=== PATIENT | female | born 1955 | race African-American/Black ===

== ENCOUNTER 2024-06-27 07:08 | Outpatient (CLI) | payer MEDICARE, SELFPAY ==
--- OUTSIDE RECORDS SUMMARY | 2024-06-27 07:17 | XMS_ITS | Clinical Summary ---
Author Organization [facility] on Address [address] [address] Care Team Providers Care Guide Cruise Name Role Phone Oh Esquivel MD Primary Care Provider Allergies Active Allergy Reactions Criticality Noted Date Comments Aspirin Rash Medium 07/03/2016 Nsaids (Non-Steroidal Anti-Inflammatory Drug) Other (See Comments) 02/14/2008 Pt had gastric bypass surgery, should not take oral NSAIDS. Tetracycline Swelling Low 12/18/2005 Medications metFORMIN (GLUCOPHAGE) 1,000 mg tablet Take 500 mg by mouth 2 times daily with meals. 12/02/2018 Active atorvastatin (LIPITOR) 40 mg tablet Take 80 mg by mouth daily. 12/02/2018 Active LEVEMIR FLEXTOUCH U-100 INSULN 100 unit/mL (3 mL) pen syringe 12/15/2018 Active ONETOUCH ULTRA BLUE TEST STRIP Strip 12/15/2018 Active Active Problems No known active problems Encounters Date Type Department Care Team Description 06/08/2024 External Device Data [facility]STRACTION Provider, Abstract 2024 External Device Data [facility]CTION Provider, Abstract 05/27/2024 External Device Data [facility] Provider, Abstract 05/24/2024 External Device Data [facility] Provider, Abstract 05/10/2024 External Device Data [facility] Provider, Abstract 04/13/2024 External Device Data [facility] Provider, Abstract 04/12/2024 External Device Data [facility] Provider, Abstract 04/06/2024 External Device Data [facility] ABSTRACTION Provider, Abstract from Last 3 Months Family History Medical History Relation Name Comments No Known Problems Brother 1 Diabetes Brother 2 No Known Problems Child 1 No Known Problems Child 2 No Known Problems Child 3 No Known Problems Child 4 No Known Problems Child 5 No Known Problems Father Diabetes Mother Heart Disease Mother No Known Problems Sister Relation Name Status Comments Brother 1 Alive Brother 2 Alive Child 1 Alive Child 2 Alive Child 3 Alive Child 4 Alive Child 5 Alive Father Mother Sister Alive Social History Tobacco Use Types Packs/Day Years Used Date Smoking Tobacco: Never Smokeless Tobacco: Never Alcohol Use Standard Drinks/Week Comments Yes 0 (1 standard drink = 0.6 oz pur e alcohol) Socially Comments No Sex and Gender Information Value Date Recorded Sex Assigned at Not on file Legal Sex Female 1:44 PM CDT Gender Identity Not on file Sexual Orientation Not on file Last Filed Vital Signs Vital Sign Reading Time Taken Comments Blood Pressure 125/78 11/11/2023 10:12 AM CDT Pulse 61 11/11/2023 10:12 AM CDT Temperature 36.6 C (97.9 F) 11/11/2023 10:12 AM CDT Respiratory Rate 16 11/11/2023 10:12 AM CDT Oxygen Saturation 98% 11/11/2023 10:12 AM CDT Inhaled Oxygen Concentration - - Weight 52.6 kg (116 lb) 11/11/2023 10:14 AM CDT Height 162.6 cm (5' 4 ) 11/11/2023 10:12 AM CDT Body Mass Index 19.91 11/11/2023 10:12 AM CDT Plan of Treatment Health Maintenance Due Date Last Done Comments DIABETES MICROALBUMIN ANNUAL SCREEN 05/29/1971 LDL CHOLESTEROL ANNUAL 05/29/1971 DTAP/TDAP/TD VACCINES (1 - Tdap) 1972 COLORECTAL SCREENING 1998 Colorectal Cancer Screening 1998 FIT-DNA Q 3 years 1998 FIT/FOBT Q 1 year 1998 Flex Sig/CT Colonography Q 5 years 1998 ZOSTER VACCINE (1 of 2) 05/29/2003 RSV VACCINE (60+ or ) (1 - Risk 60-74 years 1-dose series) 2013 DIABETES ANNUAL RETINAL EXAM 12/02/2014 12/02/2013 DIABETES ANNUAL FOOT EXAM 01/22/2020 01/21/2019 DIABETES HBA1C Q 6 MONTHS 03/03/20212020, 11/19/2018, 09/04/2014 BREAST CANCER SCREENING 05/24/2021 05/25/19 21, 05/24/2020, 01/04/2020, Additional history exists INFLUENZA VACCINE (#1) 2023 5, 12/24/2011, 02/19/2011, Additional history exists COVID-19 Vaccine (3 - 2023-2 5 season) 2023 05/18/2020, 04/24/2020 PNEUMOCOCCAL VACCINE 50+ YEA RS (3 of 3 - PCV20 or PCV21) 11/20/2026 11/20/2021, 06/21/2013, 12/24/2011 OSTEOPOROSIS SCREENING Completed , 05/10/2019, 05/10/2019, Additional history exists Insurance MEDICAID [facility] [id number] Care Teams Guide Cruise Relationship Specialty Start Date End Date Oh Esquivel MD PCP - General Internal Medicine 11/11/23
--- OUTSIDE RECORDS SUMMARY | 2024-06-27 07:17 | XMS_ITS | Clinical Summary ---
Author Organization [facility] Address [address] [place] [address] Care Team Providers Care Svp Name Role Phone Shadia Lemus MD Unavailable [phone] Jessica Tang DO Primary Care Provi cathleen Source Comments [facility],non-owned Affiliates and Associated Physician Practices is amultiple site organization consisting of ambulatory clinics and hospital sitesin [place], [place], [place] and [place]. This disclosure is being madepursuant to the Care Everywhere program and may not contain all information available regarding this patient. Last updated 17.[facility] Allergies Active Allergy Reactions Criticality Noted Date Comments Aspirin Rash Medium 07/03/2016 Nsaids Other 02/14/2008 Pt had gastric bypass surgery, should not take oral NSAIDS. Tetracycline Swelling 12/18/2005 face swells, tongue swells Medications * Be aware that medications may not be up to date on this document. Alwaysverify current medications with the patient. Medication Sig Dispensed Refills Start Date End Date Status pantoprazole EC (PROTONIX) 20 MG tablet Take 20 mg by mouth once daily Active Cyanocobalamin (VITAMIN B-12) 50 MCG Take by mouth once daily Active Ascorbic Acid (VITAMIN C) 500 MG Take by mouth once daily Active DULoxetine (CYMBALTA) 60 MG capsule Take 1 (one) capsule by mouth once daily 30 capsule 09/01/2020 Active LEVEMIR FLEXTOUCH pen Inject 6 (six) Units subcutaneously once daily 1 Pen 09/01/2020 Active liraglutide (VICTOZA) 18 MG/3ML penIndications:Ty pe 2 Diabetes Mellitus Inject 1.2 mg subcutaneously once daily Reasons: Type 2 Diabetes 2 Pen 09/01/2020 Active metFORMIN (GLUCOPHAGE) 1000 MG tablet Take 1 (one) tablet by mouth 2 times daily with morning and evening meal 60 tablet 09/01/2020 Active atorvastatin (LIPITOR) 40 MG tablet Take 1 (one) tablet by mouth at bedtime 30 tablet 09/01/2020 Active lisinopril (PRINIVIL; ZESTRIL) 10 MG tabletIndications :Hypertension Take 1 (one) tablet by mouth once daily Reasons: High Blood Pressure Disorder 30 tablet 09/01/2020 Active REXULTI 1 MG tablet Take 1 (one) tablet by mouth once daily 30 tablet 09/01/2020 Active phenazopyridine (PYRIDIUM) 200 MG tablet Take 1 (one) tablet by mouth 3 times daily as needed 25 tablet 09/26/2020 Active traMADol (ULTRAM) 50 MG tablet Take 1 (one) tablet by mouth every 6 hours as needed for Pain 12 tablet 04/10/2021 Active Active Problems Problem Noted Date Diagnosed Date Hyperglycemia 08/31/2020 Abdominal pain 07/06/2020 Hypotension 11/23/2018 Uncontrolled type 2 diabetes mellitus with hyper glycemia 11/18/2018 Other pulmonary embolism without acute cor pulmo nale 01/04/2018 Syncope 03/19/2017 Head injury 03/19/2017 Medically noncompliant Uncontrolled diabetes mellitus Resolved Problems Problem Noted Date Diagnosed Date Resolved Date Dehydration 11/23/2018 12/07/2018 Dizziness 11/18/2018 11/19/2018 Immunizations Name Administration Dates Next Due Mansi Rosales primary monoval ent 12+ yr 0.3mL Purple cap 05/18/2020,04/24/2020 Family History Medical History Relation Name Comments Suicide Father NM Mother Cancer - Breast Neg Hx Relation Name Status Comments Father Mother Social History Tobacco Use Types Packs/Day Years Used Date Smoking Tobacco: Never Smokeless Tobacco: Never Tobacco Cessation:Counseling Given: Yes Alcohol Use Standard Drinks/Week Comments No 0 (1 standard drink = 0.6 oz pur e alcohol) AUDIT-C Answer Date Recorded Q1: How often do you have a drink containing alc ohol? Never 04/10/2021 Average Number of Drinks Not on file 022 Frequency of Binge Drinking Not on file 03/23 Sex and Gender Information Value Date Recorded Sex Assigned at Not on file Gender Identity Not on file Sexual Orientation Not on file Last Filed Vital Signs Vital Sign Reading Time Taken Comments Blood Pressure 142/94 04/10/2021 8:10 AM PHARMACEUTICAL SALES REPRESENTATIVE Pulse 107 04/10/2021 8:10 AM PHARMACEUTICAL SALES REPRESENTATIVE Temperature 36.8 C (98.3 F) 04/10/2021 8:10 AM PHARMACEUTICAL SALES REPRESENTATIVE Respiratory Rate 16 04/10/2021 8:10 AM PHARMACEUTICAL SALES REPRESENTATIVE Oxygen Saturation 100% 04/10/2021 8:10 AM PHARMACEUTICAL SALES REPRESENTATIVE Inhaled Oxygen Concentration - - Weight 72.6 kg (160 lb) 04/10/2021 8:10 AM PHARMACEUTICAL SALES REPRESENTATIVE Height 162.6 cm (5' 4 ) 04/10/2021 8:10 AM PHARMACEUTICAL SALES REPRESENTATIVE Body Mass Index 27.46 04/10/2021 8:10 AM PHARMACEUTICAL SALES REPRESENTATIVE Plan of Treatment Health Maintenance Due Date Last Done Comments COLOGUARD (AGES 45-75) - COLON CA SCREENING 1953 COLON MONITORING 1953 COLONOSCOPY - COLON CA SCREENING 1953 CT COLONOGRAPHY - COLON CA SCREENING 1953 Colorectal Cancer Screening 1953 FIT - COLON CA SCREENING 1953 FLEX SIG - COLON CA SCREENING 1953 HEPATITIS C SCREENING 05/24/1971 DTAP/TDAP/TD VACCINES (1 - Tdap) 1972 PNEUMOCOCCAL VACCINE 50+ (1 of 1 - PCV) 05/29/2003 ZOSTER VACCINE (1 of 2) 05/29/2003 Respiratory Syncytial Virus (RSV) Vaccine Pt: or over 60 yrs (1 - Risk 60-74 years 1-dose series) 2013 DIABETES RETINOPATHY SCREENING 11/18/2018 DIABETES-FOOT EXAM WITH MONOFILAMENT 01/22/2020 01/21/2019 DIABETES-HGB A1C 12/02/2020 09/01/2020, , 02/07/2020, Additional history exists DIABETES-SERUM CREATININE 09/26/20212020, 09/01/2020, 08/31/2020, Additional history exists MAMMOGRAM 05/24/2022 05/24/2020, 04/23, 08/13/2017 COVID-19 VACCINE ( season) 2023 04/04/2021, 05/18/2020, 04/24/2020 DEPRESSION SCREENING 03/23/2024 DIABETES - URINE PROTEIN SCREENING 03/23/2024 MEDICARE AWV CALENDAR YEAR 2024 INFLUENZA VACCINE (Season Ended) 2024 12/16/2017, 01/22/2017, 12/15/2014, Additional history exists BONE DENSITY TESTING Completed 05/10/2019 HEPATITIS B VACCINE Aged Out No longe r eligible based on patient's age to complete this topic HIB VACCINE Aged Out No longer eligi ble based on patient's age to complete this topic HPV VACCINE Aged Out No longer eligi ble based on patient's age to complete this topic MENINGOCOCCAL (Group B) VACCINE SHARED DECISION-MAKING Aged Out No longer eligible based on patient's age to complete this topic MENINGOCOCCAL GROUPS A/C/Y/W VACCINE Aged Out No longer eligible based on patient's age to complete this topic Procedures Procedure Name Priority Date/Time Associated Diagnosis Comments COMPREHENSIVE METABOLIC PANEL STAT 09/26/2020 7:16 PM CDT HEMOGLOBIN A1C Routine 09/01/2020 5:21 AM CDT Hyperglycemia MAMMO BILAT DIAGNOSTIC Routine 05/24/2020 8:30 AM PHARMACEUTICAL SALES REPRESENTATIVE Abnormal mammogram DEXA BONE DENSITY AXIAL SKELETON Routine 05/10/2019 8:13 AM PHARMACEUTICAL SALES REPRESENTATIVE Screening for osteoporosis from Last 3 Months or Most Recently Relevant to Health Maintenance Results * (ABNORMAL) COMPREHENSIVE METABOLIC PANEL (09/26/2020 7:16 PM CDT) Glucose 232(H) 70 - 105 mg/dL 09/26/2020 7:52 PM CDT [facility] Sodium 138 136 - 145 mmol/L 09/26/2020 7:52 PM CDT [facility] Potassium 4.4 3.5 - 5.1 mmol/L 09/26/2020 7:52 PM CDT [facility] Chloride 104 98 - 107 mmol/L 09/26/2020 7:52 PM CDT [facility] CO2 24 23 - 31 mmol/L 09/26/2020 7:52 PM CDT [facility] Calcium 9.5 8.4 - 10.4 mg/dL 09/26/2020 7:52 PM CDT [facility] Anion Gap 10 8 - 18 mmol/L 09/26/2020 7:52 PM CDT [facility] BUN 14 9.8 - 20.1 mg/dL 09/26/2020 7:52 PM CDT [facility] Creatinine 1.28(H) 0.57 - 1.11 mg/dL 09/26/2020 7:52 PM CDT [facility] Alkaline Phosphatase 79 40 - 150 U/L 09/26/2020 7:52 PM CDT [facility] ALT 17 0 - 61 U/L 09/26/2020 7:52 PM CDT [facility] AST 16 5 - 34 U/L 09/26/2020 7:52 PM CDT [facility] Protein Total 7.3 6.4 - 8.3 gm/dL 09/26/2020 7:52 PM CDT [facility] Albumin 3.8 3.2 - 4.6 gm/dL 09/26/2020 7:52 PM CDT [facility] Bilirubin Total 0.2 0.2 - 1.2 mg/dL 09/26/2020 7:52 PM CDT [facility] eGFR by MDRD 42(L) >60 mL/min/1.7 3m2 09/26/2020 7:52 PM CDT [facility] eGFR by MDRD 50(L) >60 mL/min/1.7 3m2 09/26/2020 7:52 PM CDT [facility] Blood BLOOD SPECIMEN / Unknown Venipuncture / Unknown 09/26/2020 7:16 PM CDT 09/26/2020 7:25 PM CDT Narrative Authorizing Provider Result Stephane Pena ENVIRONMENTAL SCIENTIST-GLUE JOINTER FEEDER LAB - CHEMISTR Y ORDERABLES [facility] [address] [place] [address] * (ABNORMAL) HEMOGLOBIN A1C (09/01/2020 5:21 AM CDT) Hemoglobin A1c >14.0(H) 4.2 - 5.6 % 09/01/2020 5:37 AM CDT [facility] Estimated Average Glucose 09/01/2020 5:37 AM CDT [facility] Comment:Not Calculated Blood BLOOD SPECIMEN / Unknown Lab Venipuncture / Unknown 09/01/2020 5:21 AM CDT 09/01/2020 5:25 AM CDT Narrative [facility] - 09/01/2020 5:37 AM CDT The following cutoff levels are recommended by [place] [employer]. A1c > 6.5% : considered as diabetes if two separate tests >6.5% or in an appropriate clinical setting. A1c 5.7% - 6.4% : considered as prediabetes (suggest increased risk for diabetes and cardiovascular disease) Control target level: Should be individualized. < 7 for general (non-) , < 8% less stringent goal, < 6.5 more stringent goal. Hemoglobin A1c measurements are used as an aid in the diagnosis of diabetic mellitus, as an aid to identify patients who may be at the risk for developing diabetic mellitus, and for the monitoring long-term blood glucose control in individuals with diabetes mellitus. This test should not replace glucose testing for patients with Type 1 diabetes, pediatric patients, or women. Falsely low HbA1c results may be observed in patients with clinical conditions that shorten erythrocyte life span or decrease mean erythrocyte age such as the presence of unstable hemoglobin variants, elevated hemoglobin F level or other causes of hemolytic anemia . HbA1c may not accurately reflect glycemic control when clinical conditions that affect erythrocyte survival are present. Severe Iron deficiency anemia may yield falsely high results. Hemoglobin A1c assay should not be used to diagnose or monitor diabetes in patients with malignancy, recent blood transfusion, chronic kidney or liver disease. This method may yield falsely low results when hemoglobin (HbF) exceeds 5% in the specimen. Leo Rivera PA-C LAB - CHEMISTRY MONTRELL Batista Organization Address City/State/ZIP Co de Phone Number [facility] [address] [address] * (ABNORMAL) MAMMO BILAT DIAGNOSTIC (05/24/2020 8:30 AM PHARMACEUTICAL SALES REPRESENTATIVE) Anatomical Region Laterality Modality Breast Bilateral Mammography 05/24/2020 9:49 AM PHARMACEUTICAL SALES REPRESENTATIVE Narrative 05/24/2020 9:50 AM PHARMACEUTICAL SALES REPRESENTATIVE Breast composition: Heterogeneously dense, which can obscure small masses. Body of report: comparison exam from 05-10-19, 01-04-20 These images were interpreted with the aid of CAD. 3-D tomosynthesis was utilized in the interpretation of this exam.. HISTORY: One-year follow-up for probably benign calcifications within the left breast There are no spiculated lesions or areas of architectural distortion. The right breast is unchanged. Again seen within the posterior left central breast approximately 8 cm from the nipple, is stable grouping of calcifications. Compared to the prior exam, there has been no suspicious interval change. BI-RADS assessment category: Category 3, probably benign findings. Recommendation: 1 year follow-up diagnostic mammogram to confirm 2 year stability of these calcifications which are favored to be benign. *Reading Radiologist: Trice Reynolds on 05/24/2020 at 9:50 AM Kimmy Loja MD MAMMO ORDERABLES * DEXA BONE DENSITY AXIAL SKELETON (05/10/2019 8:13 AM PHARMACEUTICAL SALES REPRESENTATIVE) Anatomical Region Laterality Modality Mammography 05/10/2019 8:20 AM PHARMACEUTICAL SALES REPRESENTATIVE Narrative 05/10/2019 8:27 AM PHARMACEUTICAL SALES REPRESENTATIVE Bone density study (DEXA): History: Osteoporosis screening, postmenopausal, thyroid medication. Current study: 05/10/2019. Location: [place]. LUMBAR SPINE (L1-L4): Bone mineral density (g/cm2): 0.930. Current T-score: -1.1. Current Z-score: +0.8. Findings: Osteopenia bordering on normal bone density. LEFT FEMORAL NECK: Bone mineral density (g/cm2): 0.707. Current T-score: -1.3. Current Z-score: +0.3. Findings: Osteopenia. Please see the PACS images for additional details. World Health Organization definitions of standard deviations relative to the mean T-score: Normal bone density = -1.0 and above Mild osteopenia = -1.0 to -1.5 Moderate osteopenia = -1.5 to -2.0 Severe osteopenia = -2.0 to -2.5 Osteoporosis = -2.5 and below [facility] Center: [employer] [facility]: [employer] [facility]: [employer] [facility]: [employer] A Reading Radiologist: Jerrod Campbell MD on 05/10/2019 at 8:27 AM Procedure Note Jerrod Campbell MD - 05/10/2019 Bone density study (DEXA): History: Osteoporosis screening, postmenopausal, thyroid medication. Current study: 05/10/2019. Location: [place]. LUMBAR SPINE (L1-L4): Bone mineral density (g/cm2): 0.930. Current T-score: -1.1. Current Z-score: +0.8. Findings: Osteopenia bordering on normal bone density. LEFT FEMORAL NECK: Bone mineral density (g/cm2): 0.707. Current T-score: -1.3. Current Z-score: +0.3. Findings: Osteopenia. Please see the PACS images for additional details. World Health Organization definitions of standard deviations relative to the mean T-score: Normal bone density = -1.0 and above Mild osteopenia = -1.0 to -1.5 Moderate osteopenia = -1.5 to -2.0 Severe osteopenia = -2.0 to -2.5 Osteoporosis = -2.5 and below [facility]: [employer] [facility]: [employer] [facility]: [employer] [facility]: [employer] A Reading Radiologist: Jerrod Campbell MD on 05/10/2019 at 8:27 AM Shirley Webber MD DEXA ORDERABLES from Last 3 Months or Most Recently Relevant to Health Maintenance Advance Directives * Full Code (Latest Code Status on File) Date Activated Date Inactivated Comments 08/31/2020 8:49 PM 09/01/2020 1:01 PM * Full Code Date Activated Date Inactivated Comments 11/18/2018 11:44 PM 11/19/2018 6:24 PM * Full Code Date Activated Date Inactivated Comments 03/19/2017 6:16 PM 03/20/2017 4:45 PM * Full Code Date Activated Date Inactivated Comments 07/03/2016 11:43 PM 07/04/2016 6:28 PM Care Teams Svp Relationship Specialty Start Date End Date Jessica Tang DO [address] [place] [address] PCP - General Family Medicine 10/10/18 Shadia Lemus MD [address] [place] [address] [employer] Pulmonary Disease 09/30/17
--- OUTSIDE RECORDS SUMMARY | 2024-06-27 07:17 | XMS_ITS | Data Portability ---
Author Organization [place] [facility] [employer], Main Office Address [address] [place] [address] Care Team Providers Care Edge Polisher Name Role Phone STEVELELIAJULIANA Thomas Primary Care Provider LANCE BOSS Gravel Weigher ERIN WINN Gas Leak Inspector [facility] Jet Mechanic Assessment Encounter Date Assessment Date Assessment LastModified by Organization Details LastModified Time 02/05/2023 02/05/2023 06/27/2022: VIT D 29.3 TSH 5.500H A1C 10.1 Urine micro alb 82.0 Gluc 189, ALT/AST 50/54 HGB 11.3 11/05/2022: A1C 6.8 HGB 11.2 Gluc 142 Chol 279, LDL 181 11/06/2022: Urine micro alb: Neg Not available 02/02/2023 10:51:17 05/14/2023 05/14/2023 06/27/2022: VIT D 29.3 TSH 5.500H A1C 10.1 Urine micro alb 82.0 Gluc 189, ALT/AST 50/54 HGB 11.3 11/05/2022: A1C 6.8 HGB 11.2 Gluc 142 Chol 279, LDL 181 11/06/2022: Urine micro alb: Neg Not available 05/13/2023 17:53:38 09/17/2023 09/17/2023 06/27/2022: VIT D 29.3 TSH 5.500H A1C 10.1 Urine micro alb 82.0 Gluc 189, ALT/AST 50/54 HGB 11.3 11/05/2022: A1C 6.8 HGB 11.2 Gluc 142 Chol 279, LDL 181 11/06/2022: Urine micro alb: Neg 05/15/2023: A1C 7.2 VIT D 19.6 Gluc 127 Chol 214 H/H 11.1/35.1 Not available 09/17/2023 16:45:31 01/14/2024 01/14/2024 06/27/2022: VIT D 29.3 TSH 5.500H A1C 10.1 Urine micro alb 82.0 Gluc 189, ALT/AST 50/54 HGB 11.3 11/05/2022: A1C 6.8 HGB 11.2 Gluc 142 Chol 279, LDL 181 11/06/2022: Urine micro alb: Neg 05/15/2023: A1C 7.2 VIT D 19.6 Gluc 127 Chol 214 H/H 11.1/35.1 09/18/2023: A1C 7.1 Hep panel: Neg Gluc 118, AST 44 H/H 10.4/33.3 Not available 01/13/2024 17:35:31 06/23/2024 06/23/2024 06/27/2022: VIT D 29.3 TSH 5.500H A1C 10.1 Urine micro alb 82.0 Gluc 189, ALT/AST 50/54 HGB 11.3 11/05/2022: A1C 6.8 HGB 11.2 Gluc 142 Chol 279, LDL 181 11/06/2022: Urine micro alb: Neg 05/15/2023: A1C 7.2 VIT D 19.6 Gluc 127 Chol 214 H/H 11.1/35.1 09/18/2023: A1C 7.1 Hep panel: Neg Gluc 118, AST 44 H/H 10.4/33.3 01/14/2024: A1C 7.2 Hepatitis panel: Neg Gluc 106 H/H 10.6/33.7 Not available 06/19/2024 17:54:33 Plan of Treatment Reminders Order Date Submit Date Provider Last Modified By Organization Details Last Modified Time Details Appointments Any 15 2024 08:45A Wagner hinds MD Not available Not available Not available Lab lipid panel, serum [address] (Lab), [address] [place], [address], 06/23/2024 09:40:02 CBC w/ auto diff [address] (Lab), [address] [place], [address], 06/23/2024 09:40:02 CMP, serum or plasma [address] (Lab), [address] [place], [address], 06/23/2024 09:40:02 TSH, serum or plasma [address] (Lab), [address] [place], [address], 06/23/2024 09:40:02 vitamin D, 25-hydrox y, total, serum [address] (Lab), [address] [place], [address], 06/23/2024 09:40:03 glycohemo globin, total, blood [address] (Lab), [address] [place], [address], 06/23/2024 09:40:03 microalbu min, urine [address] (Lab), [address] [place], [address], 06/23/2024 09:40:03 hepatitis panel (A+B+C), acute, serum 2023 024 GILDARDO [facility] (Lab), [address] [place], [address], 01/14/2024 13:15:03 lipid panel, serum 2023 [facility] (Lab), [address] [place], [address], 01/14/2024 13:01:00 CBC w/ auto diff 2023 [facility] (Lab), [address] [place], [address], 01/14/2024 12:27:28 T4, free, serum 2023 [facility] (Lab), [address] [place], [address], 01/14/2024 13:05:35 CMP, serum or plasma 2023 [facility] (Lab), [address] [place], [address], 01/14/2024 13:01:16 TSH, serum or plasma 2023 [facility] (Lab), [address] [place], [address], 01/14/2024 13:07:27 vitamin D, 25-hydrox y, total, serum [address] (Lab), [address] [place], [address], 01/14/2024 09:54:39 glycohemo globin, total, blood 2023 [facility] (Lab), [address] [place], [address], 01/14/2024 14:38:11 microalbu min, urine 2023 024 [facility] (Lab), [address] [place], [address], 01/14/2024 13:13:57 lipid panel, serum 2023 024 [facility] (Lab), [address] [place], [address], 09/18/2023 11:54:40 CBC w/ auto diff 2023 024 [facility] (Lab), [address] [place], [address], 09/18/2023 11:42:18 T4, free, serum 2023 024 [facility] (Lab), [address] [place], [address], 09/18/2023 12:11:54 CMP, serum or plasma 2023 024 [facility] (Lab), [address] [place], [address], 09/18/2023 11:54:44 TSH, serum or plasma 2023 024 [facility] (Lab), [address] [place], [address], 09/18/2023 12:25:04 vitamin D, 25-hydrox y, total, serum [address] (Lab), [address] [place], [address], 03/17/2024 10:24:30 glycohemo globin, total, blood 2023 024 [facility] (Lab), [address] [place], [address], 09/18/2023 12:45:07 microalbu min, urine 2023 024 [facility] (Lab), [address] [place], [address], 09/18/2023 12:02:17 hepatitis panel (A+B+C), acute, serum 2023 024 [facility] (Lab), [address] [place], [address], 09/18/2023 12:26:05 lipid panel, serum 2023 024 [facility] (Lab), [address] [place], [address], 05/15/2023 12:01:18 CBC w/ auto diff 2023 024 [facility] (Lab), [address] [place], [address], 05/15/2023 11:17:19 T4, free, serum 2023 024 [facility] (Lab), [address] [place], [address], 05/15/2023 12:33:19 CMP, serum or plasma 2023 024 [facility] (Lab), [address] [place], [address], 05/15/2023 12:01:29 TSH, serum or plasma 2023 024 [facility] (Lab), [address] [place], [address], 05/15/2023 12:33:34 vitamin D, 25-hydrox y, total, serum [email or web address] (Lab), [address] [place], [address], 11/10/2023 17:15:40 glycohemo globin, total, blood 2023 024 [facility] (Lab), [address] [place], [address], 05/15/2023 12:15:18 microalbu min, urine 2023 024 [facility] (Lab), [address] [place], [address], 05/15/2023 12:02:44 hepatitis panel (A+B+C), acute, serum [address] (Lab), [address] [place], [address], 11/10/2023 17:15:40 lipid panel, serum [address] (Lab), [address] [place], [address], 09/22/2023 16:44:41 CBC w/ auto diff [address] (Lab), [address] [place], [address], 09/22/2023 16:44:41 T4, free, serum [address] (Lab), [address] [place], [address], 09/22/2023 16:44:41 CMP, serum or plasma [address] (Lab), [address] [place], [address], 09/22/2023 16:44:41 TSH, serum or plasma [address] (Lab), [address] [place], [address], 09/22/2023 16:44:42 vitamin D, 25-hydrox y, total, serum [address] (Lab), [address] [place], [address], 09/22/2023 16:44:42 rapid strep group A, throat 2022 023 [facility] [address], [address], [place], [address], 03/05/2023 13:38:30 rapid flu (A+B) 2022 023 [facility] [address], [address], [place], [address], 03/05/2023 13:38:31 SARS CoV 2 RNA (COVID-19 ), QL, soa integration developer-PCR, respirato ry specimen 2022 023 [facility] [address], [address], [place], [address], 03/05/2023 13:38:31 glycohemo globin, total, blood [address] (Lab), [address] [place], [address], 09/22/2023 16:44:42 microalbu min, urine [address] (Lab), [address] [place], [address], 09/22/2023 16:44:42 hepatitis panel (A+B+C), acute, serum 2022 023 [email or web address] [facility] (Lab), [address] [facility] [place], [address], 02/01/2024 08:25:30 Referral gynecolog ist referral - Please call patient to schedule an appointme nt. Thank you. 2024 025 GILDARDONIESAH Gómez, [address], [address], [place], [address], Ph [phone] 06/23/2024 17:00:47 hematolog ist referral - (wait on labs) Please call patient to schedule an appointme nt. Thank you. 2024 025 [email or web address] Lance Boss MD, [address], [place], [address], 06/23/2024 16:11:19 psychiatr ist referral - Please call patient to schedule an appointme nt. Thank you. 2024 025 GILDARDO Anna Kelley Pmhnp, [address] [facility] [address], [place], [address], 06/23/2024 16:16:06 cardiolog ist referral - (wait on labs)Plea se call patient to schedule an appointme nt. Thank you. 2024 025 [email or web address] [place], [address] [facility], [address], [place], [address], 06/23/2024 16:10:24 podiatris t referral - Please call patient to schedule an appointme nt. Thank you. 2024 025 GILDARDO Moscoso DPM, [address] [facility], [address], [place], [address], 06/23/2024 16:50:49 gynecolog ist referral - Please call patient to schedule. 2023 024 [email or web address] Miriam Gómez, [address], [address], [place], [address], Ph [phone] 03/21/2024 13:26:20 psychiatr ist referral 2023 024 [email or web address] Anna Seiffert Pmhnp, [address] [place] [address] [place], [address], 01/14/2024 16:27:13 cardiolog ist referral - Please call patient to schedule. 2023 024 [email or web address] Zoya Ly, [address] [address], [address], [address], 03/21/2024 13:24:59 hematolog ist referral 2023 024 [email or web address] Lance Boss MD, [address], [place], [address], 01/14/2024 16:24:29 podiatris t referral 2023 024 GILDARDO Moscoso DPM, [address] [facility], [address], [place], [address], 01/18/2024 14:12:44 gynecolog ist referral 2023 024 [email or web address] Miriam Gómez, [address] [facility], [address], [place], [address], Ph [phone] 03/21/2024 13:26:15 psychiatr ist referral 2023 024 [email or web address] Anna Lundyiffert Pmhnp, [address] [place] [address] [place], [address], 04/18/2024 09:59:38 cardiolog ist referral 2023 024 [email or web address] [place], [address] [address], [address], [address], 03/21/2024 13:24:55 podiatris t referral 2023 024 Festus Moscoso DPM, [address] [facility], [address], [place], [address], 03/21/2024 13:26:34 gynecolog ist referral 2023 024 alex Gómez, [address], [address], [place], [address], Ph [phone] 11/10/2023 17:16:36 cardiolog ist referral 2023 024 [email or web address] Zoya Ly, [address], [place], [address], 12/10/2023 08:47:33 podiatris t referral 2023 024 alex Moscoso DPM, [address] [facility], [address], [place], [address], 11/10/2023 17:16:35 gynecolog ist referral 2022 023 [email or web address] Gómez, [address], [address], [place], [address], Ph [phone] 10/07/2023 16:51:37 podiatris t referral 2022 023 [email or web address] Festus Moscoso DPM, [address] [facility], [address], [place], [address], 08/04/2023 08:25:49 Procedures colonosco py screening (PROC) 2023 024 alex Ordoñez MD, [address], [address], [place], [address], 11/10/2023 17:14:40 colonosco py screening (PROC) 2022 023 alex Ordoñez MD, [address], [address], [place], [address], 08/04/2023 09:39:09 Surgeries None recorded. Imaging MAMMO, screening , digital, bilateral - Please call patient to schedule. 2024 025 [facility], [address] [facility] [address], [place], [address], 06/23/2024 09:40:48 MAMMO, screening , digital, bilateral [address] ([facility]), [address] [place], [address], 01/14/2024 12:44:53 MAMMO, screening , digital, bilateral [address] ([facility]), [address] [place], [address], 03/21/2024 13:23:56 DEXA, axial skeleton [address] ([facility]), [address] [place], [address], 03/21/2024 13:23:06 MAMMO, screening , digital, bilateral [address] ([facility]), [address] [place], [address], 11/10/2023 15:38:44 DEXA, axial skeleton [address] ([facility]), [address] [place], [address], 03/21/2024 13:23:14 US, liver [address] ([facility]), [address] [place], [address], 11/30/2023 09:21:58 MAMMO, screening , digital, bilateral 2022 023 [email or web address] [id number] [facility] ([facility]), [address] [place], [address], 08/04/2023 09:01:25 DEXA, axial skeleton 2022 023 [email or web address] [facility] ([facility]), [address] [place], [address], 08/04/2023 09:18:50 Medication Orders lisinopri l 10 mg tablet 2023 024 [id number], [address] [place], [place], [id number], 05/14/2023 17:17:34 Ozempic 0.25 mg or 0.5 mg (2 mg/3 mL) subcutane ous pen injector 2023 024 [id number], [address] [place], [place], [id number], 05/14/2023 17:17:30 Zithromax Z-Mayank 250 mg tablet [email or web address] [facility] #[id number], [address] [place], [place], [id number], 05/14/2023 16:49:00 Ozempic 0.25 mg or 0.5 mg (2 mg/3 mL) subcutane ous pen injector 2022 023 [facility] #93799, [address] [place], [place], [id number], 02/05/2023 17:04:25 Patient TargetsNo targets recorded. Patient Instructions Encounter Date Encounter Id Patient Instructions Last Modified By Organization Details Last Modified Time 02/05/2023 [id number] diabetic eye exam* [email or web address] Not avail able 08/04/2023 09:20:36 05/14/2023 [id number] diabetic eye exam* [email or web address] Not avail able 11/10/2023 17:15:23 01/14/2024 [id number] dementia rating scale-2* [email or web address] Not available 01/15/2024 20:22:06 alcohol misuse* Not availa ble 01/15/2024 20:22:06 depression screening* [email or web address] Not available 01/15/2024 20:22:06 multi-dimensiona l health assessment questionnaire* Not available 01/15/2024 20:22:06 advance directiv es: care instructions [email or web address] Not available 01/15/2024 20:22:06 advance care planning: care instructions Not available 01/15/2024 20:22:06 [place] Advance Directives [email or web address] Not available 01/15/2024 20:22:06 diabetic eye exam* [email or web address] Not availab le 01/14/2024 09:56:59 Personalized Hea lth Plan and Screening Recommendations Advance Directives - Do you have one? No You have indicated that you are capable of preparing your advance care directive Advance Directives - Do we have your advance directive on file in your health record? No, please bring in a copy at your earliest convenience Primary Prevention/Interven tion (prevents or decreases the chance of common diseases from occurring) Smoking Risk: Non Smoker Alcohol Misuse Screening: Negative Weight: Appropriate Physical activity: Appropriate physical activity Nutrition: Good Average Refer to attached handout Heart-Healthy Diet: After Your Visit Fall Risk (screened today): Low Refer to attached handout Preventing Falls: After your Visit Vaccines Pneumococcal: Ordered Recommended today Recommended today, but you have declined No further needed Influenza: Chronic Disease Risks Stroke: Low Risk Intermediate Risk Heart Attack: Low risk Intermediate Risk Clogging of the Arteries: Low risk Intermediate Risk Diabetes: High Risk Active diagnosis, Continue current treatment plan Secondary Prevention/Interven tion (detects treatable diseases before they may cause symptoms, disability, or ) Breast Cancer Screening with mammogram: Your next mammogram: Ordered Cervical/Uterine/Ov pedro Cancer Screening: Your next PAP/pelvic in: Referral to lock plater Osteoporosis Screening: Date Screening Last Performed:2022 Colon Cancer Screening: Colonoscopy Date Screening Last Performed: 2022 Eye Disease Screening: Ordered Recommended today Dementia Risk: Low I have no recommendations Depression Screening: Negative [email or web address] Not available 01/14/2024 11:26:26 06/23/2024 [id number] diabetic eye exam* [email or web address] Not avail able 06/23/2024 09:40:03 Reason for Referral Household Assistant Referral for Type 2 diabetes mellitus without complication Referring Physician: Juliana Esquivel [facility], Encounter Date: 02/05/2023 Information Security Systems Instructor Referral for Gy necologic examination Referring Physician: Juliana Esqu[facility], Encounter Date: 02/05/2023 Household Assistant Referral for Type 2 diabetes mellitus without complication Referring Physician: Rio Guillen [facility], Encounter Date: 05/14/2023 Information Security Systems Instructor Referral for Gy necologic examination Referring Physician: Rio Guillen [facility], Encounter Date: 05/14/2023 Gas Leak Inspector Referral for Es sential hypertension Referring Physician: Rio Guillen [facility], Encounter Date: 05/14/2023 Household Assistant Referral for Type 2 diabetes mellitus without complication Referring Physician: Rio Guillen [facility], Encounter Date: 09/17/2023 Information Security Systems Instructor Referral for Gy necologic examination Referring Physician: Rio Guillen, Encounter Date: 09/17/2023 Gas Leak Inspector Referral for Es sential hypertension Referring Physician: Rio Guillen Medicine, Encounter Date: 09/17/2023 Psychiatrist Referral for Sc hizophrenia Referring Physician: Rio Guillen Medicine, Encounter Date: 09/17/2023 Household Assistant Referral for Type 2 diabetes mellitus without complication Referring Physician: Rio Guillen, Encounter Date: 01/14/2024 Information Security Systems Instructor Referral for Gy necologic examination Please call patient to schedule. Referring Physician: Rio Guillen Medicine, Encounter Date: 01/14/2024 Gas Leak Inspector Referral for Es sential hypertension Please call patient to schedule. Referring Physician: Juliana Esquivel [facility], Encounter Date: 01/14/2024 Psychiatrist Referral for Sc hizophrenia Referring Physician: Juliana Esquivel [facility], Encounter Date: 01/14/2024 Referring Physician: Juliana Esquivel [facility], Encounter Date: 01/14/2024 Household Assistant Referral for Type 2 diabetes mellitus without complication Please call patient to schedule an appointment. Thank you. Referring Physician: Juliana Esquivel [facility], Encounter Date: 06/23/2024 Information Security Systems Instructor Referral for Gy necologic examination Please call patient to schedule an appointment. Thank you. Referring Physician: Juliana Esquivel [facility], Encounter Date: 06/23/2024 Gas Leak Inspector Referral for Es sential hypertension (wait on labs)Please call patient to schedule an appointment. Thank you. Referring Physician: Juliana Esquivel [facility], Encounter Date: 06/23/2024 Psychiatrist Referral for Sc hizophrenia Please call patient to schedule an appointment. Thank you. Referring Physician: Juliana Esquivel [facility], Encounter Date: 06/23/2024 (wait on labs) Please call p atient to schedule an appointment. Thank you. Referring Physician: Juliana Esquivel [facility], Encounter Date: 06/23/2024 Results Created Date Observation Date Name Description Value Unit Range Abnormal Flag Note LastModifiedBy Organization Detail LastModifiedTime 02/11/20 23 02/10/2023 SARS- COV-2 RNA(C OVID1 9),RT -PCR sars-cov-2 RNA(covid19) ,RT-PCR NEGATI VE This test has been autho rized by the FDA under an Emerg ency Use Autho rizat ion (EUA) for use by autho rized labor atori es. Negat ravi resul ts do not precl ude SARS- CoV-2 and shoul d not be used as the sole basis for treat ment or other patie nt manag ement decis ions. Test resul ts shoul d be corre lated with the clini [place] histo ry, epide miolo gical data, and other data avail able to the clini robbin evalu ating the patie nt. Yanna azevedo w the Fact Sheet s for healt h care provi ders and patie nts at the [facility] donna: https ://ww w.[employer] .gov/ media /2827 12/do wnloa d https ://uGift.Flightfox .gov/ media /1364 13/do wnloa d Metho dolog y: Real- Time RT-PC R Not Available [facility] (Lab) [address] [place], [address], 02/10/2023 12:18:01 02/11/20 23 02/10/2023 RAPID STREP A DNA strep A DNA, BENEDICTO NEGATI VE negati ve Not Available [facility] (Lab) [address] [place], [address], 02/10/2023 12:50:20 02/11/20 23 02/10/2023 INFLU CURT A/B ANTIG EN RAPID flu A NEGATI VE negati ve Not Available [facility] (Lab) [address] [place], [address], 02/10/2023 13:19:21 02/11/20 23 02/10/2023 INFLU CURT A/B ANTIG EN RAPID flu B NEGATI VE negati ve THIS TEST CAN NOT DISTI NGUIS H INFLU CURT A VIRUS SUBTY PES. ALSO, YANNA E NOTE THAT A NEGAT RAVI RESUL T DOES NOT EXCLU DE INFLU CURT VIRUS INFEC TION. IF MORE CONCL USIVE TESTI NG IS CHANDLER ED, FOLLO W-UP CONFI RMATO RY TESTI NG WITH RT-PC R IS SUGHUGO STED. Not Available [facility] (Lab) [address] [place], [address], 02/10/2023 13:19:21 02/11/20 23 02/10/2023 INFLU CURT A/B ANTIG EN RAPID valid QC POSITI VE Not Available [facility] (Lab) [address] [place], [address], 02/10/2023 13:19:21 02/11/20 23 02/10/2023 INFLU CURT A/B ANTIG EN RAPID lot # [id number] Not Available [facility] (Lab) [address] [place], [address], 02/10/2023 13:19:21 02/11/20 23 02/10/2023 INFLU CURT A/B ANTIG EN RAPID source FACULTY DEAN SWAB Not Available [facility] (Lab) [address] [place], [address], 02/10/2023 13:19:21 02/20/20 23 02/19/2023 SARS CoV 2 RNA (COVI D-19) , QL, soa integration developer-P CR, respi rator y speci men id now covid-19 id now covid- 19 Not Available [facility] [address] [facility], [address], [place], [address], 02/05/2023 17:24:54 05/15/19 24 05/15/2023 CBC/C OMPLE TE BLD COUNT W/DIF F white blood cells 5.4 x10'3 /uL 4.2-10 .8 Not Available [facility] (Lab) [address] [place], [address], 05/15/2023 11:17:18 05/15/19 24 05/15/2023 CBC/C OMPLE TE BLD COUNT W/DIF F red blood cells 3.93 x10'6 /uL 3.80-5 .20 Not Available [facility] (Lab) [address] [place], [address], 05/15/2023 11:17:18 05/15/19 24 05/15/2023 CBC/C OMPLE TE BLD COUNT W/DIF F hemoglobin 11.1 g/dL 12.0-1 5.6 low Not Available [facility] (Lab) [address] [place], [address], 05/15/2023 11:17:18 05/15/19 24 05/15/2023 CBC/C OMPLE TE BLD COUNT W/DIF F hematocrit 35.1 % 35.7-4 5.7 low Not Available [facility] (Lab) [address] [place], [address], 05/15/2023 11:17:18 05/15/19 24 05/15/2023 CBC/C OMPLE TE BLD COUNT W/DIF F mean red cell volume 89.3 fL 82.0-9 9.0 Not Available [facility] (Lab) [address] [place], [address], 05/15/2023 11:17:18 05/15/19 24 05/15/2023 CBC/C OMPLE TE BLD COUNT W/DIF F mean red cell hemoglobin 28.2 pg 27.0-3 3.0 Not Available [facility] (Lab) [address] [place], [address], 05/15/2023 11:17:18 05/15/19 24 05/15/2023 CBC/C OMPLE TE BLD COUNT W/DIF F mean RBC HGB concentratio n 31.6 g/dL 31.0-3 6.0 Not Available [facility] (Lab) [address] [place], [address], 05/15/2023 11:17:18 05/15/19 24 05/15/2023 CBC/C OMPLE TE BLD COUNT W/DIF F red cell distribution width 14.1 % 11.8-1 5.5 Not Available [facility] (Lab) [address] [place], [address], 05/15/2023 11:17:18 05/15/19 24 05/15/2023 CBC/C OMPLE TE BLD COUNT W/DIF F platelets 332 x10'3 /uL 150-40 0 Not Available [facility] (Lab) [address] [facility] [place], [address], 05/15/2023 11:17:18 05/15/19 24 05/15/2023 CBC/C OMPLE TE BLD COUNT W/DIF F mean platelet volume 10.4 fL 9.0-12 .4 Not Available [facility] (Lab) [address] [facility] [place], [address], 05/15/2023 11:17:18 05/15/19 24 05/15/2023 CBC/C OMPLE TE BLD COUNT W/DIF F neutrophils 56.9 % 39.0-7 2.0 Not Available [facility] (Lab) [address] [place], [address], 05/15/2023 11:17:18 05/15/19 24 05/15/2023 CBC/C OMPLE TE BLD COUNT W/DIF F lymphocytes 35.8 % 16.0-4 7.0 Not Available [facility] (Lab) [address] [place], [address], 05/15/2023 11:17:18 05/15/19 24 05/15/2023 CBC/C OMPLE TE BLD COUNT W/DIF F monocytes 5.8 % 5.0-12 .0 Not Available [facility] (Lab) [address] [place], [address], 05/15/2023 11:17:18 05/15/19 24 05/15/2023 CBC/C OMPLE TE BLD COUNT W/DIF F eosinophils 0.7 % 1.0-7. 0 low Not Available [facility] (Lab) [address] [place], [address], 05/15/2023 11:17:18 05/15/19 24 05/15/2023 CBC/C OMPLE TE BLD COUNT W/DIF F basophils 0.6 % 0.0-2. 0 Not Available [facility] (Lab) [address] [place], [address], 05/15/2023 11:17:18 05/15/19 24 05/15/2023 CBC/C OMPLE TE BLD COUNT W/DIF F immature granulocytes 0.2 % 0.00-0 .50 Not Available [facility] (Lab) [address] [place], [address], 05/15/2023 11:17:18 05/15/19 24 05/15/2023 CBC/C OMPLE TE BLD COUNT W/DIF F neutrophils, absolute count 3.05 x10'3 /uL 1.5-8. 0 Not Available [facility] (Lab) [address] [place], [address], 05/15/2023 11:17:18 05/15/19 24 05/15/2023 CBC/C OMPLE TE BLD COUNT W/DIF F lymphocytes, absolute count 1.92 x10'3 /uL 1.07-3 .43 Not Available [facility] (Lab) [address] [place], [address], 05/15/2023 11:17:18 05/15/19 24 05/15/2023 CBC/C OMPLE TE BLD COUNT W/DIF F monocytes, absolute count 0.31 x10'3 /uL 0.29-0 .99 Not Available [facility] (Lab) [address] [place], [address], 05/15/2023 11:17:18 05/15/19 24 05/15/2023 CBC/C OMPLE TE BLD COUNT W/DIF F eosinophils, absolute count 0.04 x10'3 /uL 0.02-0 .53 Not Available [facility] (Lab) [address] [place], [address], 05/15/2023 11:17:18 05/15/19 24 05/15/2023 CBC/C OMPLE TE BLD COUNT W/DIF F basophils, absolute count 0.03 x10'3 /uL 0.01-0 .08 Not Available [facility] (Lab) [address] [place], [address], 05/15/2023 11:17:18 05/15/19 24 05/15/2023 CBC/C OMPLE TE BLD COUNT W/DIF F immature granulocytes ,absolute 0.01 x10'3 /uL 0.00-0 .05 Not Available [facility] (Lab) [address] [place], [address], 05/15/2023 11:17:18 05/15/19 24 05/15/2023 CBC/C OMPLE TE BLD COUNT W/DIF F nucleated red blood cells 0.0 % -0 Not Available [facility] (Lab) [address] [place], [address], 05/15/2023 11:17:18 05/15/19 24 05/15/2023 CBC/C OMPLE TE BLD COUNT W/DIF F NRBC# 0.00 x10'3 /uL Not Available [facility] (Lab) [address] [place], [address], 05/15/2023 11:17:18 05/15/19 24 05/15/2023 LIPID PANEL cholesterol 214 mg/dL 140-19 9 high NIH ADDISON NSUS RECOM MENDA TION FOR CASSIDY STERO L: ADULT CHILD LOW RISK: <200 <170 BORDE RLINE : <200- 239 ----- HIGH RISK: >240 >200 Not Available [facility] (Lab) [address] [place], [address], 05/15/2023 12:01:18 05/15/19 24 05/15/2023 LIPID PANEL triglyceride s 102 mg/dL 0-150 NIH ADDISON NSUS REPOR T RECOM MENDA TION FOR TRIGL YCERI JOSSELIN: ADULT CHILD LOW RISK: <150 ----- BODER LINE: 150-1 99 ----- HIGH RISK: >200 ----- Not Available [facility] (Lab) [address] [place], [address], 05/15/2023 12:01:18 05/15/19 24 05/15/2023 LIPID PANEL HDL cholesterol 96 mg/dL 40- Not Available [facility] (Lab) [address] [place], [address], 05/15/2023 12:01:18 05/15/19 24 05/15/2023 LIPID PANEL LDL cholesterol, calculated 98 mg/dL 0-130 NIH ADDISON NSUS REPOR T RECOM MENDA TIONS FOR LDL: ADULT CHILD LOW RISK <130 <110 (OPTI MAL LDL) <100 ----- BORDE RLINE : 130-1 59 ----- HIGH RISK: >160 >130 A TRIGL YCERI DE RESUL T >400 INVAL IDATE S THE CALCU LATIO N FOR LDL FRACT IONAT ION - THE LDL RESUL T WILL NOT BE REPOR [place]. Not Available [facility] (Lab) [address] [place], [address], 05/15/2023 12:01:18 05/15/19 24 05/15/2023 COMPR EHENS RAVI METAB OLIC PANEL sodium 140 mmol/ L 137-14 5 Not Available [facility] (Lab) [address] [place], [address], 05/15/2023 12:01:29 05/15/19 24 05/15/2023 COMPR EHENS RAVI METAB OLIC PANEL potassium 4.1 mmol/ L 3.5-5. 1 Not Available [facility] (Lab) [address] [place], [address], 05/15/2023 12:01:29 05/15/19 24 05/15/2023 COMPR EHENS RAVI METAB OLIC PANEL chloride 105 mmol/ L 98-107 Not Available [facility] (Lab) [address] [place], [address], 05/15/2023 12:01:29 05/15/19 24 05/15/2023 COMPR EHENS RAVI METAB OLIC PANEL carbon dioxide 33 mmol/ L 22-30 high Not Available [facility] (Lab) [address] [place], [address], 05/15/2023 12:01:29 05/15/19 24 05/15/2023 COMPR EHENS RAVI METAB OLIC PANEL anion gap 6.1 mmol/ L 14-22 low Not Available [facility] (Lab) [address] [place], [address], 05/15/2023 12:01:29 05/15/19 24 05/15/2023 COMPR EHENS RAVI METAB OLIC PANEL glucose 127 mg/dL 70-99 high Not Available [facility] (Lab) [address] [place], [address], 05/15/2023 12:01:29 05/15/19 24 05/15/2023 COMPR EHENS RAVI METAB OLIC PANEL BUN 13 mg/dL 8-19 Not Available [facility] (Lab) [address] [place], [address], 05/15/2023 12:01:29 05/15/19 24 05/15/2023 COMPR EHENS RAVI METAB OLIC PANEL creatinine 0.87 mg/dL 0.66-1 .25 Not Available [facility] (Lab) [address] [place], [address], 05/15/2023 12:01:29 05/15/19 24 05/15/2023 COMPR EHENS RAVI METAB OLIC PANEL GFR >60 Refer ence Range : [place] GFR Healt hy Adult : >60 mL/mi n/1.7 3 m2 Chron ic Kidne y Disea se: 15-60 mL/mi n/1.7 3 m2 Kidne y Failu re: <15/m L/min /1.73 m2 www.n iddk. nih.g ov The MDRD study equat ion has not been valid ated in child yosi <18 years of age; pregn ant women ; the elder ly >85 years of age; or in some racia l or ethni c subgr oups, such as Hispa nics. Outsi de the valid ated bari eters , estim ated GFR is less accur ate, requi ring clini jersey judgm ent on a case- by-ca se basis . Clini jersey inter preta tion for other races and ages must be made by the clini robbin. The MDRD study equat ion has not been valid ated for the evalu ation of serum creat inine relat ed to nutri pepper l statu s or medic ation usage . For perso ns <18 years of age, a pedia tric GFR calcu lator is avail able on the [facility] websi te: https :[email or web address] [email or web address].[email or web address] [email or web address]/[email or web address] zhaoess bellal s/kdo qi/gf r_cal culat or Not Available [facility] (Lab) [address] [place], [address], 05/15/2023 12:01:29 05/15/19 24 05/15/2023 COMPR EHENS RAVI METAB OLIC PANEL alkaline phosphatase 97 U/L 38-126 Not Available [facility] (Lab) [address] [place], [address], 05/15/2023 12:01:29 05/15/19 24 05/15/2023 COMPR EHENS RAVI METAB OLIC PANEL alanine aminotransfe rase 24 U/L 0-35 Not Available [facility] (Lab) [address] [place], [address], 05/15/2023 12:01:29 05/15/19 24 05/15/2023 COMPR EHENS RAVI METAB OLIC PANEL aspartate aminotransfe rase 30 U/L 15-37 Not Available [facility] (Lab) [address] [place], [address], 05/15/2023 12:01:29 05/15/19 24 05/15/2023 COMPR EHENS RAVI METAB OLIC PANEL bilirubin, total 0.40 mg/dL 0.20-1 .30 Not Available [facility] (Lab) [address] [place], [address], 05/15/2023 12:01:29 05/15/19 24 05/15/2023 COMPR EHENS RAVI METAB OLIC PANEL calcium 9.7 mg/dL 8.4-10 .2 Not Available [facility] (Lab) [address] [place], [address], 05/15/2023 12:01:29 05/15/19 24 05/15/2023 COMPR EHENS RAVI METAB OLIC PANEL total protein 6.8 g/dL 6.3-8. 2 Not Available [facility] (Lab) [address] [place], [address], 05/15/2023 12:01:29 05/15/19 24 05/15/2023 COMPR EHENS RAVI METAB OLIC PANEL albumin 4.0 g/dL 3.0-4. 4 Not Available [facility] (Lab) [address] [place], [address], 05/15/2023 12:01:29 05/15/19 24 05/15/2023 COMPR EHENS RAVI METAB OLIC PANEL globulin 2.8 g/dL 2.6-4. 2 Not Available [facility] (Lab) [address] [place], [address], 05/15/2023 12:01:29 05/15/19 24 05/15/2023 COMPR EHENS RAVI METAB OLIC PANEL A/G ratio 1.4 ratio 1.0-2. 0 Not Available [facility] (Lab) [address] [place], [address], 05/15/2023 12:01:29 05/15/19 24 05/15/2023 MICRO ALBUM IN RANDO M URINE microalbumin , urine 7.0 mg/L 0.0-16 .6 Not Available [facility] (Lab) [address] [place], [address], 05/15/2023 12:02:44 05/15/19 24 05/15/2023 HEMOG LOBIN A1C HA1C 7.2 % 4.0-6. 0 high Diabe donna Scree aure Crite carmina: <5.7% Consi stent with absen ce of diabe donna 5.7-6 .4% Consi stent with incre ased risk for diabe donna (pred iabet es) >OR=6 .5% Consi stent with diabe donna REFER ENCE: Diabe donna Care 2016, 39(Navarrete ppl.1 ):s13 -s22 Not Available [facility] (Lab) [address] [place], [address], 05/15/2023 12:15:17 05/15/19 24 05/15/2023 T4 FREE free T4 0.83 NG/dL 0.78-2 .19 Not Available [facility] (Lab) [address] [place], [address], 05/15/2023 12:33:19 05/15/19 24 05/15/2023 TSH W/REF KAR FT4 TSH with reflex free T4 1.580 uIU/m L 0.465- 4.680 Not Available [facility] (Lab) [address] [place], [address], 05/15/2023 12:33:34 05/15/19 24 05/15/2023 VITAM IN D 25-HY DROXY [id number] 19.6 NG/mL 30-100 low Vitam in D Statu s: Defic ient: <20 ng/mL Insuf ficie nt: 20-29 ng/mL Suffi cient : 30-10 0 ng/mL Not Available [facility] (Lab) [address] [place], [address], 05/15/2023 12:43:55 09/18/19 24 09/18/2023 CBC/C OMPLE TE BLD COUNT W/DIF F white blood cells 5.0 x10'3 /uL 4.2-10 .8 Not Available [facility] (Lab) [address] [place], [address], 09/18/2023 11:42:18 09/18/19 24 09/18/2023 CBC/C OMPLE TE BLD COUNT W/DIF F red blood cells 3.71 x10'6 /uL 3.80-5 .20 low Not Available [facility] (Lab) [address] [place], [address], 09/18/2023 11:42:18 09/18/19 24 09/18/2023 CBC/C OMPLE TE BLD COUNT W/DIF F hemoglobin 10.4 g/dL 12.0-1 5.6 low Not Available [facility] (Lab) [address] [place], [address], 09/18/2023 11:42:18 09/18/19 24 09/18/2023 CBC/C OMPLE TE BLD COUNT W/DIF F hematocrit 33.3 % 35.7-4 5.7 low Not Available [facility] (Lab) [address] [place], [address], 09/18/2023 11:42:18 09/18/19 24 09/18/2023 CBC/C OMPLE TE BLD COUNT W/DIF F mean red cell volume 89.8 fL 82.0-9 9.0 Not Available [facility] (Lab) [address] [place], [address], 09/18/2023 11:42:18 09/18/19 24 09/18/2023 CBC/C OMPLE TE BLD COUNT W/DIF F mean red cell hemoglobin 28.0 pg 27.0-3 3.0 Not Available [facility] (Lab) [address] [place], [address], 09/18/2023 11:42:18 09/18/19 24 09/18/2023 CBC/C OMPLE TE BLD COUNT W/DIF F mean RBC HGB concentratio n 31.2 g/dL 31.0-3 6.0 Not Available [facility] (Lab) [address] [place], [address], 09/18/2023 11:42:18 09/18/19 24 09/18/2023 CBC/C OMPLE TE BLD COUNT W/DIF F red cell distribution width 13.9 % 11.8-1 5.5 Not Available [facility] (Lab) [address] [place], [address], 09/18/2023 11:42:18 09/18/19 24 09/18/2023 CBC/C OMPLE TE BLD COUNT W/DIF F platelets 322 x10'3 /uL 150-40 0 Not Available [facility] (Lab) [address] [place], [address], 09/18/2023 11:42:18 09/18/19 24 09/18/2023 CBC/C OMPLE TE BLD COUNT W/DIF F mean platelet volume 10.5 fL 9.0-12 .4 Not Available [facility] (Lab) [address] [place], [address], 09/18/2023 11:42:18 09/18/19 24 09/18/2023 CBC/C OMPLE TE BLD COUNT W/DIF F neutrophils 54.2 % 39.0-7 2.0 Not Available [facility] (Lab) [address] [place], [address], 09/18/2023 11:42:18 09/18/19 24 09/18/2023 CBC/C OMPLE TE BLD COUNT W/DIF F lymphocytes 38.0 % 16.0-4 7.0 Not Available [facility] (Lab) [address] [place], [address], 09/18/2023 11:42:18 09/18/19 24 09/18/2023 CBC/C OMPLE TE BLD COUNT W/DIF F monocytes 5.6 % 5.0-12 .0 Not Available [facility] (Lab) [address] [place], [address], 09/18/2023 11:42:18 09/18/19 24 09/18/2023 CBC/C OMPLE TE BLD COUNT W/DIF F eosinophils 1.2 % 1.0-7. 0 Not Available [facility] (Lab) [address] [place], [address], 09/18/2023 11:42:18 09/18/19 24 09/18/2023 CBC/C OMPLE TE BLD COUNT W/DIF F basophils 0.8 % 0.0-2. 0 Not Available [facility] (Lab) [address] [place], [address], 09/18/2023 11:42:18 09/18/19 24 09/18/2023 CBC/C OMPLE TE BLD COUNT W/DIF F immature granulocytes 0.2 % 0.00-0 .50 Not Available [facility] (Lab) [address] [place], [address], 09/18/2023 11:42:18 09/18/19 24 09/18/2023 CBC/C OMPLE TE BLD COUNT W/DIF F neutrophils, absolute count 2.70 x10'3 /uL 1.5-8. 0 Not Available [facility] (Lab) [address] [place], [address], 09/18/2023 11:42:18 09/18/19 24 09/18/2023 CBC/C OMPLE TE BLD COUNT W/DIF F lymphocytes, absolute count 1.89 x10'3 /uL 1.07-3 .43 Not Available [facility] (Lab) [address] [place], [address], 09/18/2023 11:42:18 09/18/19 24 09/18/2023 CBC/C OMPLE TE BLD COUNT W/DIF F monocytes, absolute count 0.28 x10'3 /uL 0.29-0 .99 low Not Available [facility] (Lab) [address] [place], [address], 09/18/2023 11:42:18 09/18/19 24 09/18/2023 CBC/C OMPLE TE BLD COUNT W/DIF F eosinophils, absolute count 0.06 x10'3 /uL 0.02-0 .53 Not Available [facility] (Lab) [address] [place], [address], 09/18/2023 11:42:18 09/18/19 24 09/18/2023 CBC/C OMPLE TE BLD COUNT W/DIF F basophils, absolute count 0.04 x10'3 /uL 0.01-0 .08 Not Available [facility] (Lab) [address] [place], [address], 09/18/2023 11:42:18 09/18/19 24 09/18/2023 CBC/C OMPLE TE BLD COUNT W/DIF F immature granulocytes ,absolute 0.01 x10'3 /uL 0.00-0 .05 Not Available [facility] (Lab) [address] [place], [address], 09/18/2023 11:42:18 09/18/19 24 09/18/2023 CBC/C OMPLE TE BLD COUNT W/DIF F nucleated red blood cells 0.0 % -0 Not Available [facility] (Lab) [address] [place], [address], 09/18/2023 11:42:18 09/18/19 24 09/18/2023 CBC/C OMPLE TE BLD COUNT W/DIF F NRBC# 0.00 x10'3 /uL Not Available [facility] (Lab) [address] [place], [address], 09/18/2023 11:42:18 09/18/19 24 09/18/2023 LIPID PANEL cholesterol 160 mg/dL 140-19 9 NIH ADDISON NSUS RECOM MENDA TION FOR CASSIDY STERO L: ADULT CHILD LOW RISK: <200 <170 BORDE RLINE : <200- 239 ----- HIGH RISK: >240 >200 Not Available [facility] (Lab) [address] [place], [address], 09/18/2023 11:54:40 09/18/19 24 09/18/2023 LIPID PANEL triglyceride s 42 mg/dL 0-150 NIH ADDISON NSUS REPOR T RECOM MENDA TION FOR TRIGL YCERI JOSSELIN: ADULT CHILD LOW RISK: <150 ----- BODER LINE: 150-1 99 ----- HIGH RISK: >200 ----- Not Available [facility] (Lab) [address] [place], [address], 09/18/2023 11:54:40 09/18/19 24 09/18/2023 LIPID PANEL HDL cholesterol 88 mg/dL 40- Not Available [facility] (Lab) [address] [place], [address], 09/18/2023 11:54:40 09/18/19 24 09/18/2023 LIPID PANEL LDL cholesterol, calculated 64 mg/dL 0-130 NIH ADDISON NSUS REPOR T RECOM MENDA TIONS FOR LDL: ADULT CHILD LOW RISK <130 <110 (OPTI MAL LDL) <100 ----- BORDE RLINE : 130-1 59 ----- HIGH RISK: >160 >130 A TRIGL YCERI DE RESUL T >400 INVAL IDATE S THE CALCU LATIO N FOR LDL FRACT IONAT ION - THE LDL RESUL T WILL NOT BE REPOR [place]. Not Available [facility] (Lab) [address] [place], [address], 09/18/2023 11:54:40 09/18/19 24 09/18/2023 COMPR EHENS RAVI METAB OLIC PANEL sodium 140 mmol/ L 137-14 5 Not Available [facility] (Lab) [address] [place], [address], 09/18/2023 11:54:44 09/18/19 24 09/18/2023 COMPR EHENS RAVI METAB OLIC PANEL potassium 4.0 mmol/ L 3.5-5. 1 Not Available [facility] (Lab) [address] [place], [address], 09/18/2023 11:54:44 09/18/19 24 09/18/2023 COMPR EHENS RAVI METAB OLIC PANEL chloride 104 mmol/ L 98-107 Not Available [facility] (Lab) [address] [place], [address], 09/18/2023 11:54:44 09/18/19 24 09/18/2023 COMPR EHENS RAVI METAB OLIC PANEL carbon dioxide 32 mmol/ L 22-30 high Not Available [facility] (Lab) [address] [place], [address], 09/18/2023 11:54:44 09/18/19 24 09/18/2023 COMPR EHENS RAVI METAB OLIC PANEL anion gap 8.0 mmol/ L 14-22 low Not Available [facility] (Lab) [address] [place], [address], 09/18/2023 11:54:44 09/18/19 24 09/18/2023 COMPR EHENS RAVI METAB OLIC PANEL glucose 118 mg/dL 70-99 high Not Available [facility] (Lab) [address] [place], [address], 09/18/2023 11:54:44 09/18/19 24 09/18/2023 COMPR EHENS RAVI METAB OLIC PANEL BUN 14 mg/dL 8-19 Not Available [facility] (Lab) [address] [place], [address], 09/18/2023 11:54:44 09/18/19 24 09/18/2023 COMPR EHENS RAVI METAB OLIC PANEL creatinine 0.91 mg/dL 0.66-1 .25 Not Available [facility] (Lab) [address] [place], [address], 09/18/2023 11:54:44 09/18/19 24 09/18/2023 COMPR EHENS RAVI METAB OLIC PANEL GFR >60 Refer ence Range : [place] GFR Healt hy Adult : >60 mL/mi n/1.7 3 m2 Chron ic Kidne y Disea se: 15-60 mL/mi n/1.7 3 m2 Kidne y Failu re: <15/m L/min /1.73 m2 www.n iddk. nih.g ov The MDRD study equat ion has not been valid ated in child yosi <18 years of age; pregn ant women ; the elder ly >85 years of age; or in some racia l or ethni c subgr oups, such as Hispa nics. Outsi de the valid ated bari eters , estim ated GFR is less accur ate, requi ring clini jersey judgm ent on a case- by-ca se basis . Clini jersey inter preta tion for other races and ages must be made by the clini robbin. The MDRD study equat ion has not been valid ated for the evalu ation of serum creat inine relat ed to nutri pepper l statu s or medic ation usage . For perso ns <18 years of age, a pedia tric GFR calcu lator is avail able on the [facility] websi te: https :[email or web address] figueroa.[email or web address] treviño/cristina ofess ional s/kdo qi/gf r_cal culat or Not Available [facility] (Lab) [address] [place], [address], 09/18/2023 11:54:44 09/18/19 24 09/18/2023 COMPR EHENS RAVI METAB OLIC PANEL alkaline phosphatase 86 U/L 38-126 Not Available [facility] (Lab) [address] [place], [address], 09/18/2023 11:54:44 09/18/19 24 09/18/2023 COMPR EHENS RAVI METAB OLIC PANEL alanine aminotransfe rase 34 U/L 0-35 Not Available [facility] (Lab) [address] [place], [address], 09/18/2023 11:54:44 09/18/19 24 09/18/2023 COMPR EHENS RAVI METAB OLIC PANEL aspartate aminotransfe rase 44 U/L 15-37 high Not Available [facility] (Lab) [address] [place], [address], 09/18/2023 11:54:44 09/18/19 24 09/18/2023 COMPR EHENS RAVI METAB OLIC PANEL bilirubin, total 0.50 mg/dL 0.20-1 .30 Not Available [facility] (Lab) [address] [place], [address], 09/18/2023 11:54:44 09/18/19 24 09/18/2023 COMPR EHENS RAVI METAB OLIC PANEL calcium 9.1 mg/dL 8.4-10 .2 Not Available [facility] (Lab) [address] [place], [address], 09/18/2023 11:54:44 09/18/19 24 09/18/2023 COMPR EHENS RAVI METAB OLIC PANEL total protein 6.8 g/dL 6.3-8. 2 Not Available [facility] (Lab) [address] [place], [address], 09/18/2023 11:54:44 09/18/19 24 09/18/2023 COMPR EHENS RAVI METAB OLIC PANEL albumin 3.9 g/dL 3.0-4. 4 Not Available [facility] (Lab) [address] [place], [address], 09/18/2023 11:54:44 09/18/19 24 09/18/2023 COMPR EHENS RAVI METAB OLIC PANEL globulin 2.9 g/dL 2.6-4. 2 Not Available [facility] (Lab) [address] [place], [address], 09/18/2023 11:54:44 09/18/19 24 09/18/2023 COMPR EHENS RAVI METAB OLIC PANEL A/G ratio 1.3 ratio 1.0-2. 0 Not Available [facility] (Lab) [address] [place], [address], 09/18/2023 11:54:44 09/18/19 24 09/18/2023 MICRO ALBUM IN RANDO M URINE microalbumin , urine 14.3 mg/L 0.0-16 .6 Not Available [facility] (Lab) [address] [place], [address], 09/18/2023 12:02:17 09/18/19 24 09/18/2023 T4 FREE free T4 1.07 NG/dL 0.78-2 .19 Not Available [facility] (Lab) [address] [place], [address], 09/18/2023 12:11:54 09/18/19 24 09/18/2023 TSH thyroid-stim ulating hormone 3.130 uIU/m L 0.465- 4.680 Not Available [facility] (Lab) [address] [place], [address], 09/18/2023 12:25:04 09/18/19 24 09/18/2023 HEPAT ITIS ACUTE PANEL hepatitis A IgM antibody NON-RE ACTIVE non-re active For sampl es repor [place] as Borde rline React ravi for HAV IgM, it is recom nicho d a new speci men be obtai mary in 2 weeks and retes [place]. Not Available [facility] (Lab) [address] [place], [address], 09/18/2023 12:45:54 09/18/19 24 09/18/2023 HEPAT ITIS ACUTE PANEL hepatitis A virus signal/cutof 0.05 0.00-0 .79 Not Available [facility] (Lab) [address] [place], [address], 09/18/2023 12:45:54 09/18/19 24 09/18/2023 HEPAT ITIS ACUTE PANEL hepatitis B core IgM antibody NON-RE ACTIVE non-re active Not Available [facility] (Lab) [address] [place], [address], 09/18/2023 12:45:54 09/18/19 24 09/18/2023 HEPAT ITIS ACUTE PANEL HBV core IgM signal/cutof f 0.04 0.00-1 .10 Not Available [facility] (Lab) [address] [place], [address], 09/18/2023 12:45:54 09/18/19 24 09/18/2023 HEPAT ITIS ACUTE PANEL hepatitis B surface antigen NON-RE ACTIVE non-re active All speci mens react ravi for Hepat itis B Surfa ce Antig en will refle x to refer [facility] lab confi rmato ry testi ng. Not Available [facility] (Lab) [address] [place], [address], 09/18/2023 12:45:54 09/18/19 24 09/18/2023 HEPAT ITIS ACUTE PANEL HBV surf.antigen signal/cutof f 0.07 0.00-0 .99 Not Available [facility] (Lab) [address] [place], [address], 09/18/2023 12:45:54 09/18/19 24 09/18/2023 HEPAT ITIS ACUTE PANEL hepatitis C antibody NON-RE ACTIVE non-re active All speci mens react ravi for Hepat itis C Virus antib sandra will refle x to PCR confi rmato ry testi ng. Pleas e allow 48-72 hours for resul ts. Not Available [facility] (Lab) [address] [place], [address], 09/18/2023 12:45:54 09/18/19 24 09/18/2023 HEPAT ITIS ACUTE PANEL hepatitis C virus signal/cutof 0.01 0.00-0 .99 Not Available [facility] (Lab) [address] [place], [address], 09/18/2023 12:45:54 09/18/19 24 09/18/2023 HEMOG LOBIN A1C HA1C 7.1 % 4.0-6. 0 high Diabe donna Scree aure Crite carmina: <5.7% Consi stent with absen ce of diabe donna 5.7-6 .4% Consi stent with incre ased risk for diabe donna (pred iabet es) >OR=6 .5% Consi stent with diabe donna REFER ENCE: Diabe donna Care 2016, 39(Navarrete ppl.1 ):s13 -s22 Not Available [facility] (Lab) [address] [place], [address], 09/18/2023 12:45:07 09/18/19 24 09/18/2023 VITAM IN D 25-HY DROXY vd25oh 35.2 NG/mL 30-100 Vitam in D Statu s: Defic ient: <20 ng/mL Insuf ficie nt: 20-29 ng/mL Suffi cient : 30-10 0 ng/mL Not Available [facility] (Lab) [address] [place], [address], 09/18/2023 17:34:39 01/14/2001/14/2024 CBC/C OMPLE TE BLD COUNT W/DIF F white blood cells 4.9 x10'3 /uL 4.2-10 .8 Not Available [facility] (Lab) [address] [place], [address], 01/14/2024 12:27:28 01/14/2001/14/2024 CBC/C OMPLE TE BLD COUNT W/DIF F red blood cells 3.73 x10'6 /uL 3.80-5 .20 low Not Available [facility] (Lab) [address] [place], [address], 01/14/2024 12:27:28 01/14/2001/14/2024 CBC/C OMPLE TE BLD COUNT W/DIF F hemoglobin 10.6 g/dL 12.0-1 5.6 low Not Available [facility] (Lab) [address] [place], [address], 01/14/2024 12:27:28 01/14/2001/14/2024 CBC/C OMPLE TE BLD COUNT W/DIF F hematocrit 33.7 % 35.7-4 5.7 low Not Available [facility] (Lab) [address] [place], [address], 01/14/2024 12:27:28 01/14/2001/14/2024 CBC/C OMPLE TE BLD COUNT W/DIF F mean red cell volume 90.3 fL 82.0-9 9.0 Not Available [facility] (Lab) [address] [place], [address], 01/14/2024 12:27:28 01/14/2001/14/2024 CBC/C OMPLE TE BLD COUNT W/DIF F mean red cell hemoglobin 28.4 pg 27.0-3 3.0 Not Available [facility] (Lab) [address] [place], [address], 01/14/2024 12:27:28 01/14/2001/14/2024 CBC/C OMPLE TE BLD COUNT W/DIF F mean RBC HGB concentratio n 31.5 g/dL 31.0-3 6.0 Not Available [facility] (Lab) [address] [place], [address], 01/14/2024 12:27:28 01/14/2001/14/2024 CBC/C OMPLE TE BLD COUNT W/DIF F red cell distribution width 13.8 % 11.8-1 5.5 Not Available [facility] [facility] [address] [place], [address], 01/14/2024 12:27:28 01/14/2001/14/2024 CBC/C OMPLE TE BLD COUNT W/DIF F platelets 326 x10'3 /uL 150-40 0 Not Available [facility] (Lab) [address] [place], [address], 01/14/2024 12:27:28 01/14/2001/14/2024 CBC/C OMPLE TE BLD COUNT W/DIF F mean platelet volume 10.5 fL 9.0-12 .4 Not Available [facility] (Lab) [address] [place], [address], 01/14/2024 12:27:28 01/14/2001/14/2024 CBC/C OMPLE TE BLD COUNT W/DIF F neutrophils 58.0 % 39.0-7 2.0 Not Available [facility] (Lab) [address] [place], [address], 01/14/2024 12:27:28 01/14/2001/14/2024 CBC/C OMPLE TE BLD COUNT W/DIF F lymphocytes 34.1 % 16.0-4 7.0 Not Available [facility] (Lab) [address] [place], [address], 01/14/2024 12:27:28 01/14/2001/14/2024 CBC/C OMPLE TE BLD COUNT W/DIF F monocytes 6.1 % 5.0-12 .0 Not Available [facility] (Lab) [address] [place], [address], 01/14/2024 12:27:28 01/14/2001/14/2024 CBC/C OMPLE TE BLD COUNT W/DIF F eosinophils 0.8 % 1.0-7. 0 low Not Available [facility] (Lab) [address] [place], [address], 01/14/2024 12:27:28 01/14/2001/14/2024 CBC/C OMPLE TE BLD COUNT W/DIF F basophils 0.8 % 0.0-2. 0 Not Available [facility] (Lab) [address] [place], [address], 01/14/2024 12:27:28 01/14/2001/14/2024 CBC/C OMPLE TE BLD COUNT W/DIF F immature granulocytes 0.2 % 0.00-0 .50 Not Available [facility] (Lab) [address] [place], [address], 01/14/2024 12:27:28 01/14/2001/14/2024 CBC/C OMPLE TE BLD COUNT W/DIF F neutrophils, absolute count 2.84 x10'3 /uL 1.5-8. 0 Not Available [facility] (Lab) [address] [place], [address], 01/14/2024 12:27:28 01/14/2001/14/2024 CBC/C OMPLE TE BLD COUNT W/DIF F lymphocytes, absolute count 1.67 x10'3 /uL 1.07-3 .43 Not Available [facility] (Lab) [address] [place], [address], 01/14/2024 12:27:28 01/14/2001/14/2024 CBC/C OMPLE TE BLD COUNT W/DIF F monocytes, absolute count 0.30 x10'3 /uL 0.29-0 .99 Not Available [facility] (Lab) [address] [place], [address], 01/14/2024 12:27:28 01/14/2001/14/2024 CBC/C OMPLE TE BLD COUNT W/DIF F eosinophils, absolute count 0.04 x10'3 /uL 0.02-0 .53 Not Available [facility] (Lab) [address] [place], [address], 01/14/2024 12:27:28 01/14/2001/14/2024 CBC/C OMPLE TE BLD COUNT W/DIF F basophils, absolute count 0.04 x10'3 /uL 0.01-0 .08 Not Available [facility] (Lab) [address] [place], [address], 01/14/2024 12:27:28 01/14/2001/14/2024 CBC/C OMPLE TE BLD COUNT W/DIF F immature granulocytes ,absolute 0.01 x10'3 /uL 0.00-0 .05 Not Available [facility] (Lab) [address] [place], [address], 01/14/2024 12:27:28 01/14/2001/14/2024 CBC/C OMPLE TE BLD COUNT W/DIF F nucleated red blood cells 0.0 % -0 Not Available [facility] (Lab) [address] [place], [address], 01/14/2024 12:27:28 01/14/2001/14/2024 CBC/C OMPLE TE BLD COUNT W/DIF F NRBC# 0.00 x10'3 /uL Not Available [facility] (Lab) [address] [place], [address], 01/14/2024 12:27:28 01/14/2001/14/2024 VITAM IN D 25-HY DROXY [id number] 34.4 NG/mL 30-100 Vitam in D Statu s: Defic ient: <20 ng/mL Insuf ficie nt: 20-29 ng/mL Suffi cient : 30-10 0 ng/mL Not Available [facility] (Lab) [address] [place], [address], 01/14/2024 12:59:04 01/14/2001/14/2024 LIPID PANEL cholesterol 237 mg/dL 140-19 9 high NIH ADDISON NSUS RECOM MENDA TION FOR CASSIDY STERO L: ADULT CHILD LOW RISK: <200 <170 BORDE RLINE : <200- 239 ----- HIGH RISK: >240 >200 Not Available [facility] (Lab) [address] [place], [address], 01/14/2024 13:01:11 01/14/2001/14/2024 LIPID PANEL triglyceride s 58 mg/dL 0-150 NIH ADDISON NSUS REPOR T RECOM MENDA TION FOR TRIGL YCERI JOSSELIN: ADULT CHILD LOW RISK: <150 ----- BODER LINE: 150-1 99 ----- HIGH RISK: >200 ----- Not Available [facility] (Lab) [address] [place], [address], 01/14/2024 13:01:11 01/14/20 24 01/14/2024 LIPID PANEL HDL cholesterol 122 mg/dL 40- Not Available [facility] (Lab) [address] [place], [address], 01/14/2024 13:01:11 01/14/20 24 01/14/2024 LIPID PANEL LDL cholesterol, calculated 103 mg/dL 0-130 NIH ADDISON NSUS REPOR T RECOM MENDA TIONS FOR LDL: ADULT CHILD LOW RISK <130 <110 (OPTI MAL LDL) <100 ----- BORDE RLINE : 130-1 59 ----- HIGH RISK: >160 >130 A TRIGL YCERI DE RESUL T >400 INVAL IDATE S THE CALCU LATIO N FOR LDL FRACT IONAT ION - THE LDL RESUL T WILL NOT BE REPOR [place]. Not Available [facility] (Lab) [address] [place], [address], 01/14/2024 13:01:11 01/14/20 24 01/14/2024 COMP MET PANEL /LIVE R sodium 137 mmol/ L 137-14 5 Not Available [facility] (Lab) [address] [place], [address], 01/14/2024 13:01:16 01/14/20 24 01/14/2024 COMP MET PANEL /LIVE R potassium 4.2 mmol/ L 3.5-5. 1 Not Available [facility] (Lab) [address] [place], [address], 01/14/2024 13:01:16 01/14/2001/14/2024 COMP MET PANEL /LIVE R chloride 102 mmol/ L 98-107 Not Available [facility] (Lab) [address] [place], [address], 01/14/2024 13:01:16 01/14/20 24 01/14/2024 COMP MET PANEL /LIVE R carbon dioxide 28 mmol/ L 22-30 Not Available [facility] (Lab) [address] [place], [address], 01/14/2024 13:01:16 01/14/2001/14/2024 COMP MET PANEL /LIVE R anion gap 11.2 mmol/ L 14-22 low Not Available [facility] (Lab) [address] [place], [address], 01/14/2024 13:01:16 01/14/2001/14/2024 COMP MET PANEL /LIVE R glucose 106 mg/dL 70-99 high Not Available [facility] (Lab) [address] [place], [address], 01/14/2024 13:01:16 01/14/2001/14/2024 COMP MET PANEL /LIVE R BUN 15 mg/dL 8-19 Not Available [facility] (Lab) [address] [place], [address], 01/14/2024 13:01:16 01/14/20 24 01/14/2024 COMP MET PANEL /LIVE R creatinine 0.95 mg/dL 0.66-1 .25 Not Available [facility] (Lab) [address] [place], [address], 01/14/2024 13:01:16 01/14/2001/14/2024 COMP MET PANEL /LIVE R GFR >60 Refer ence Range : [place] ge GFR Healt hy Adult : >60 mL/mi n/1.7 3 m2 Chron ic Kidne y Disea se: 15-60 mL/mi n/1.7 3 m2 Kidne y Failu re: <15/m L/min /1.73 m2 www.n iddk. nih.g ov The MDRD study equat ion has not been valid ated in child yosi <18 years of age; pregn ant women ; the elder ly >85 years of age; or in some racia l or ethni c subgr oups, such as Hispa nics. Outsi de the valid ated bari eters , estim ated GFR is less accur ate, requi ring clini jersey judgm ent on a case- by-ca se basis . Clini jersey inter preta tion for other races and ages must be made by the clini robbin. The MDRD study equat ion has not been valid ated for the evalu ation of serum creat inine relat ed to nutri pepper l statu s or medic ation usage . For perso ns <18 years of age, a pedia tric GFR calcu lator is avail able on the [facility] websi te: https ://ww w.kid henry.o rg/pr ofess ional s/kdo qi/gf r_cal culat or Not Available [facility] (Lab) [address] [place], [address], 01/14/2024 13:01:16 01/14/2001/14/2024 COMP MET PANEL /LIVE R alkaline phosphatase 81 U/L 38-126 Not Available [facility] (Lab) [address] [place], [address], 01/14/2024 13:01:16 01/14/2001/14/2024 COMP MET PANEL /LIVE R alanine aminotransfe rase 31 U/L 0-35 Not Available [facility] (Lab) [address] [place], [address], 01/14/2024 13:01:16 01/14/2001/14/2024 COMP MET PANEL /LIVE R aspartate aminotransfe rase 39 U/L 15-37 high Not Available [facility] (Lab) [address] [place], [address], 01/14/2024 13:01:16 01/14/2001/14/2024 COMP MET PANEL /LIVE R bilirubin, total 0.60 mg/dL 0.20-1 .30 Not Available [facility] (Lab) [address] [place], [address], 01/14/2024 13:01:16 01/14/2001/14/2024 COMP MET PANEL /LIVE R bilirubin, conjugated (direct) 0.00 mg/dL 0.00-0 .30 Not Available [facility] (Lab) [address] [place], [address], 01/14/2024 13:01:16 01/14/2001/14/2024 COMP MET PANEL /LIVE R biliurubin,u ncong. (indirect) 0.20 mg/dL 0.00-1 .1 Not Available [facility] (Lab) [address] [place], [address], 01/14/2024 13:01:16 01/14/2001/14/2024 COMP MET PANEL /LIVE R calcium 10.1 mg/dL 8.4-10 .2 Not Available [facility] (Lab) [address] [place], [address], 01/14/2024 13:01:16 01/14/2001/14/2024 COMP MET PANEL /LIVE R total protein 6.9 g/dL 6.3-8. 2 Not Available [facility] (Lab) [address] [place], [address], 01/14/2024 13:01:16 01/14/2001/14/2024 COMP MET PANEL /LIVE R albumin 4.2 g/dL 3.0-4. 4 Not Available [facility] (Lab) [address] [place], [address], 01/14/2024 13:01:16 01/14/2001/14/2024 COMP MET PANEL /LIVE R globulin 2.7 g/dL 2.6-4. 2 Not Available [facility] (Lab) [address] [place], [address], 01/14/2024 13:01:16 01/14/2001/14/2024 COMP MET PANEL /LIVE R A/G ratio 1.6 ratio 1.0-2. 0 Not Available [facility] (Lab) [address] [place], [address], 01/14/2024 13:01:16 01/14/2001/14/2024 T4 FREE free T4 0.86 NG/dL 0.78-2 .19 Not Available [facility] (Lab) [address] [place], [address], 01/14/2024 13:05:35 01/14/2001/14/2024 TSH thyroid-stim ulating hormone 2.170 uIU/m L 0.465- 4.680 Not Available [facility] (Lab) [address] [place], [address], 01/14/2024 13:07:27 01/14/2001/14/2024 MICRO ALBUM IN RANDO M URINE microalbumin , urine 12.9 mg/L 0.0-16 .6 Not Available [facility] (Lab) [address] [place], [address], 01/14/2024 13:13:57 01/14/2001/14/2024 HEPAT ITIS ACUTE PANEL hepatitis A IgM antibody NON-RE ACTIVE non-re active For sampl es repor austin as Borde rline React ravi for HAV IgM, it is recom nicho d a new speci men be obtai mary in 2 weeks and retes austin. Not Available [facility] (Lab) [address] [place], [address], 01/14/2024 13:35:11 01/14/2001/14/2024 HEPAT ITIS ACUTE PANEL hepatitis A virus signal/cutof 0.04 0.00-0 .79 Not Available [facility] (Lab) [address] [place], [address], 01/14/2024 13:35:11 01/14/2001/14/2024 HEPAT ITIS ACUTE PANEL hepatitis B core IgM antibody NON-RE ACTIVE non-re active Not Available [facility] (Lab) [address] [place], [address], 01/14/2024 13:35:11 01/14/20 24 01/14/2024 HEPAT ITIS ACUTE PANEL HBV core IgM signal/cutof f 0.05 0.00-1 .10 Not Available [facility] (Lab) [address] [place], [address], 01/14/2024 13:35:11 01/14/2001/14/2024 HEPAT ITIS ACUTE PANEL hepatitis B surface antigen NON-RE ACTIVE non-re active All speci mens react ravi for Hepat itis B Surfa ce Antig en will refle x to refer ral lab confi rmato ry testi ng. Not Available [facility] (Lab) [address] [place], [address], 01/14/2024 13:35:11 01/14/20 24 01/14/2024 HEPAT ITIS ACUTE PANEL HBV surf.antigen signal/cutof f 0.09 0.00-0 .99 Not Available [facility] (Lab) [address] [place], [address], 01/14/2024 13:35:11 01/14/20 24 01/14/2024 HEPAT ITIS ACUTE PANEL hepatitis C antibody NON-RE ACTIVE non-re active All speci mens react ravi for Hepat itis C Virus antib sandra will refle x to PCR confi rmato ry testi ng. Pleas e allow 48-72 hours for resul ts. Not Available [facility] (Lab) [address] [place], [address], 01/14/2024 13:35:11 01/14/20 24 01/14/2024 HEPAT ITIS ACUTE PANEL hepatitis C virus signal/cutof 0.02 0.00-0 .99 Not Available [facility] (Lab) [address] [place], [address], 01/14/2024 13:35:11 01/14/2001/14/2024 HEMOG LOBIN A1C HA1C 7.2 % 4.0-6. 0 high Diabe donna Amber Bishop carmina: <5.7% Consi stent with absen ce of diabe donna 5.7-6 .4% Consi stent with incre ased risk for diabe donna (pred iabet es) >OR=6 .5% Consi stent with diabe donna REFER ENCE: Diabe donna Care 2016, 39(Navarrete ppl.1 ):s13 -s22 Not Available [facility] ([facility]) [address] [place], [address], 01/14/2024 14:38:11 10/02/19 24 10/01/2023 imagi ng/di agnos tic resul t No observ ation record ed. [facility] [address] [place], [address], 10/02/2023 00:54:17 02/22/20 24 02/22/2024 imagi ng/di agnos tic resul t No observ ation record ed. [facility] [address] , [place], [address], 02/22/2024 16:38:45 Result Notes None recorded. Problems Name Problem SNOMED Code Status Onset Date Resolution Date Notes Provider Name and Address Organization Details Recorded Time Tibialis posterior tendinitis 443793058 Active 2021 Not Available [facility] 3 01:26:51 Proteinuri a 80576602 Active 2021 Not Available [facility] 3 01:26:51 Type 2 diabetes mellitus without complicati on 460027034 Active 2021 Not Available [facility] 3 01:26:52 Pain in left foot 1002074925715 07 Active 2021 Not Available [facility] 3 01:26:52 Vitamin D deficiency 28812798 Active 2021 Not Available [facility] 3 01:26:52 Uncontroll ed type 2 diabetes mellitus 882074549 Active 2021 Not Available [facility] 3 01:26:52 Hyperlipid emia 22188793 Active 2021 Not Available [facility] 3 01:26:52 Essential hypertensi on 61474552 Active 2022 Juliana thomas MD [address], [address], [place], [address] , [facility] 3 14:39:19 Schizophre octaviano 74710440 Active 2022 Juliana thomas MD [address], [address], [place], [address] , [place] [facility] 3 14:42:19 Gastroesop hageal reflux disease without esophagiti s 728579259 Active 2022 Juliana thomas MD [address], [address], [place], [address] , [place] [facility] 3 14:42:59 Liver enzymes level above reference range 559607226 Active 2022 Cierra finnegan, [place] [facility] 3 14:35:03 Abdominal pain 45294142 Active 2022 Naye Buchanan MD [address], [address], [place], [address] , [facility] 3 11:35:14 Dyslipidem ia 892405961 Active 2022 Not Available [facility] 3 11:40:39 Well controlled type 2 diabetes mellitus 407498108 Active 2022 Naye Buchanan MD [address], [address], [place], [address] , [place] [facility] 3 12:48:06 Dystrophia unguium 33081559 Active 2022 Festus Moscoso DPM [address], [address], [place], [address] , [facility] [employer] [facility] 3 17:31:51 Upper respirator y infection 10851731 Active 2022 Juliana thomas MD [address], [address], [place], [address] , [facility] [facility] 3 17:24:43 Anemia 955422122 Active 2023 Rima Short MA null, [place] - [facility] [employer] [facility] 4 11:07:11 Insomnia 567595499 Active 2023 Juliana thomas MD [address], [address], [place], [address] , [facility] [facility] 4 09:43:12 Problem Notes None recorded. Procedures Surgical History Date Name Laterality Status Provider Name and Address Organization Details Recorded Time 01/14/20 Medicare Wellness CPT Code, subsequent completed Rene Zuleta LPN [employer] [facility] [employer] [facility] 01/14/2024 10:24:04 01/14/20 24 Advanced Care Planning completed Rene Zuleta LPN PA [employer] [facility] 01/14/2024 11:21:46 01/28/20 23 Nail Debridement completed Festus Moscoso DPM [address], [address], [place], [address], [facility] [employer] [facility] 01/27/2023 17:31:29 12/02/19 23 Colonoscopy completed JOLENE Toth [employer] [facility] [employer] [facility] 12/26/2022 14:29:22 Tonsillectomy completed Not Available [facility] 05/22/2022 01:25:21 completed Not Available [facility] 0 05/22/2022 01:25:21 Gastric Bypass completed Not Available [facility] 05/22/2022 01:25:21 Cataract Surgery completed Susanna cook Colleen PA [employer] [facility] [employer] 02/05/2023 16:56:56 Imaging Results Imaging Date Name Status LastModified by Organiz ation Details LastModified Time 10/01/2023 imaging/diagn ostic result active [facility] [address] [place], [address], 10/02/2023 00:54:17 02/22/2024 imaging/diagn ostic result active [facility] [address], [place], [address], 02/22/2024 16:38:45 Procedure Notes None recorded. Medical Equipment None Reported. Allergies Allergen ID Allergen Name Allergen Category Reaction Reaction Severity Criticality Documentation Date Start Date Code Code System Note Provider Name and Address Organization Details Recorded Time 70878 Medicinal product containin g tetracycl ine structure and acting as antibacte rial agent (product) medicatio n rash Not available Not available 05/22/2022 88474 1004 SNOMED Not Available [facility] 3 01:28:25 44660 aspirin medicatio n rash Not available Not available 05/22/2022 1191 RxNorm Not Available [facility] 3 01:28:25 Medications Name Sig Start Date Stop Date Status Note LastModified by Organization Details LastModified Time atorvastati n 40 mg tablet TAKE 1 TABLET BY MOUTH EVERY DAY 02/27 completed Not Available Not Available Not Available atorvastati n 80 mg tablet TAKE 1 TABLET BY MOUTH EVERY DAY active Not Available Not Available No t Available prednisone 10 mg tablet TAKE 1 TABLET BY MOUTH TWICE DAILY 11/20 completed Not Available Not Available Not Available trazodone 50 mg tablet TAKE 1-3 TABLETS BY MOUTH EVERY NIGHT AT BEDTIME NEEDED FOR SLEEP active Not Available Not Available No t Available amitriptyli ne 150 mg tablet 11/20 completed Not Available Not Available Not Available azithromyci n 250 mg tablet TAKE 2 TABLETS (500 MG) BY ORAL ROUTE ONCE DAILY FOR 1 DAY THEN 1 TABLET (250 MG) BY ORAL ROUTE ONCE DAILY FOR 4 DAYS 05/14 completed Not Available Not Available Not Available fluconazole 150 mg tablet TAKE 1 TABLET BY MOUTH 1 TIME EVERY WEEK FOR 2 WEEKS 11/20 completed Not Available Not Available Not Available prazosin 1 mg capsule TAKE 1 CAPSULE BY MOUTH EVERY DAY AT BEDTIME active Not Available Not Available No t Available prednisone 20 mg tablet TAKE 2 TABLETS BY MOUTH EVERY DAY FOR 5 DAYS 05/14 completed Not Available Not Available Not Available quetiapine 200 mg tablet TAKE 1 TABLET BY MOUTH EVERY DAY AT BEDTIME 05/14 completed Not Available Not Available Not Available peg-electro lyte solution 420 gram oral solution 02/05 completed Not Available Not Available Not Available tramadol 50 mg tablet TAKE 1 TABLET BY MOUTH EVERY 6 HOURS NEEDED FOR PAIN 11/20 completed Not Available Not Available Not Available quetiapine 100 mg tablet 09/16 completed Not Available Not Available Not Available glimepiride 2 mg tablet TAKE 2 TABLETS BY MOUTH TWICE DAILY WITH MEALS 11/07 completed Not Available Not Available Not Available glimepiride 1 mg tablet TAKE 2 TABLETS BY MOUTH TWICE DAILY BEFORE MEALS active Not Available Not Available No t Available pantoprazol e 20 mg tablet,morena yed release TAKE 1 TABLET BY MOUTH EVERY DAY BEFORE MEAL 08/07 completed Not Available Not Available Not Available ketorolac 0.5 % eye drops 02/05 completed Not Available Not Available Not Available prednisolon e acetate 1 % eye drops,suspe nsion 02/05 completed Not Available Not Available Not Available ciprofloxac in 0.3 % eye drops 02/05 completed Not Available Not Available Not Available benzonatate 100 mg capsule TAKE 1 CAPSULE BY MOUTH EVERY 8 HOURS NEEDED 05/14 completed Not Available Not Available Not Available cephalexin 500 mg capsule TAKE 1 CAPSULE BY MOUTH EVERY 12 HOURS FOR 5 DAYS 11/20 completed Not Available Not Available Not Available metformin 1,000 mg tablet TAKE 1 TABLET BY MOUTH TWICE DAILY 11/07 completed Not Available Not Available Not Available lisinopril 10 mg tablet TAKE 1 TABLET BY MOUTH EVERY DAY active Not Available Not Available No t Available hydroxyzine HCl 25 mg tablet TAKE 1/2 TO 1 TABLET BY MOUTH TWICE DAILY NEEDED FOR ANXIETY OR PANIC 08/07 completed Not Available Not Available Not Available ergocalcife rol (vitamin D2) 1,250 mcg (50,000 unit) capsule TAKE 1 CAPSULE BY MOUTH EVERY WEEK active Not Available Not Available No t Available metformin ER 500 mg tablet,exte nded release 24 hr TAKE 1 TABLET BY MOUTH EVERY DAY AT DINNER active Not Available Not Available No t Available prazosin 2 mg capsule TAKE 1 CAPSULE BY MOUTH AT BEDTIME 02/27 completed Not Available Not Available Not Available Laxative (bisacodyl) 5 mg tablet TAKE ALL 6 TABLETS BY MOUTH AT 8 AM ON 11/30 completed Not Available Not Available Not Available rosuvastati n 40 mg tablet TAKE 1 TABLET BY MOUTH EVERY DAY 11/21 completed Not Available Not Available Not Available nitrofurant oin monohydrate /macrocryst als 100 mg capsule TAKE 1 CAPSULE BY MOUTH EVERY 12 HOURS FOR 5 DAYS 11/20 completed Not Available Not Available Not Available duloxetine 60 mg capsule,del ayed release Take 1 capsule every day by oral route in the morning for 28 days. 08/07 completed Not Available Not Available Not Available Levemir FlexPen 100 unit/mL (3 mL) solution subcutaneou s insulin pen INJECT 12 UNITS UNDER THE SKIN EVERY MORNING AND 18 UNITS EVERY NIGHT AT BEDTIME active Not Available Not Available No t Available quetiapine 50 mg tablet 02/27 completed Not Available Not Available Not Available cholecalcif bryant (vitamin D3) 1,250 mcg (50,000 unit) capsule TAKE 1 CAPSULE BY MOUTH ONCE A WEEK 02/05 completed Not Available Not Available Not Available Victoza 2-Mayank 0.6 mg/0.1 mL (18 mg/3 mL) subcutaneou s pen injector ADMINISTE R 0.6 MG UNDER THE SKIN EVERY DAY 12/26 completed Not Available Not Available Not Available Farxiga 10 mg tablet TAKE 1 TABLET BY MOUTH EVERY DAY IN THE MORNING 08/07 completed Not Available Not Available Not Available Rexulti 1 mg tablet 11/20 completed Not Available Not Available Not Available Rexulti 2 mg tablet 11/20 completed Not Available Not Available Not Available Ozempic 0.25 mg or 0.5 mg (2 mg/1.5 mL) subcutaneou s pen injector Inject 0.5 mg every week by subcutane ous route at dinner for 90 days. 11/04 completed Not Available Not Available Not Available [employer] Naseem 2 Sensor kit CHANGE SENSOR EVERY 14 DAYS active Not Available Not Available No t Available [employer] Visione 2 Horseheads USE DIRECTED active Not Available Not Available No t Available Ozempic 0.25 mg or 0.5 mg (2 mg/3 mL) subcutaneou s pen injector INJECT 0.5MG UNDER THE SKIN ONCE WEEKLY active Not Available Not Available No t Available Vitals Date Recorded Body height Body mass index (BMI) Body weight Body temperature Heart rate Systolic blood pressure Diastolic blood pressure Provider Name and Address Organization Details Last Updated DateTime 3 157.48 cm 24.7 kg/m2 12334.9 7 g 97.5 [degF] 78 /min 110 mm[Hg] 72 mm[Hg] JOLENE Toth [employer] 3 16:59:13 Date Recorded Body height Body mass index (BMI) Body weight Body temperature Heart rate Systolic blood pressure Diastolic blood pressure Provider Name and Address Organization Details Last Updated DateTime 4 157.48 cm 25.1 kg/m2 93593.1 5 g 97.3 [degF] 72 /min 132 mm[Hg] 70 mm[Hg] JOLENE Toth [employer] 4 16:51:57 Date Recorded Body height Body mass index (BMI) Body weight Body temperature Heart rate Systolic blood pressure Diastolic blood pressure Provider Name and Address Organization Details Last Updated DateTime 4 157.48 cm 21.9 kg/m2 64830.0 8 g 97.2 [degF] 72 /min 100 mm[Hg] 60 mm[Hg] Susanna Brizuela Colleen [employer] [facility] [employer] 4 16:56:44 Date Recorded Body height Body mass index (BMI) Body weight Heart rate Body temperature Systolic blood pressure Diastolic blood pressure Provider Name and Address Organization Details Last Updated DateTime 4 157.48 cm 20.5 kg/m2 76765.3 5 g 72 /min 97.3 [degF] 120 mm[Hg] 68 mm[Hg] JOLENE Toth [employer] [facility] [employer] 4 09:27:24 Date Recorded Body height Body mass index (BMI) Body weight Body temperature Heart rate Systolic blood pressure Diastolic blood pressure Provider Name and Address Organization Details Last Updated DateTime 5 157.48 cm 20.3 kg/m2 79068.7 5 g 97.3 [degF] 72 /min 116 mm[Hg] 64 mm[Hg] JOLENE Toth CA - [facility] 5 09:15:00 Social History Question Answer Notes LastModified by Organization Details LastModified Time Tobacco Smoking Status Never Smoker Not Available [employer] 05/22/2022 01:24:27 Do You Have An Advance Directive? No MIGRATION.030 [id number] Information not available 05/22/2022 What Is Your Level Of Alcohol Consumption? Occasional MIGRATION.030 [id number] Information not available 05/22/2022 How Many Years Have You Consumed Alcohol? 30 [email or web address] Information not available 01/14/2024 Do You Wear A Helmet When Biking? No Does Not Bike Information not available 01/14/2024 Are You Blind Or Do You Have Difficulty Seeing? Yes MIGRATION.030 [id number] Information not available 05/22/2022 Is Blood Transfusion Acceptable In An Emergency? Yes [email or web address] Information not available 01/14/2024 What Is Your Level Of Caffeine Consumption? Heavy MIGRATION.030 [id number] Information not available 05/22/2022 In The 14 Days Before Symptom Onset, Have You Had Close Contact With A Laboratory-confi rmed COVID-19 While That Case Was Ill? No MIGRATION.030 [id number] Information not available 05/22/2022 In The 14 Days Before Symptom Onset, Have You Had Close Contact With A Person Who Is Under Investigation For COVID-19 While That Person Was Ill? No MIGRATION.030 113091 Information not available 05/22/2022 Are You Currently Employed? Yes Information not available 06/26/2022 Are You Deaf Or Do You Have Serious Difficulty Hearing? No MIGRATION.030 [id number] Information not available 05/22/2022 What Type Of Diet Are You Following? REGULAR MIGRATION.030 [id number] Information not available 05/22/2022 What Is The Highest Grade Or Level Of School You Have Completed Or The Highest Degree You Have Received? 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 5 [email or web address] Information not available 01/14/2024 On Those Days That You Engage In Moderate To Strenuous Exercise, How Many Minutes, On Average, Do You Exercise? 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 No MIGRATION.0301 [id number] Information not available 05/22/2022 What Is The Fluoride Status Of Your Home? Unknown MIGRATION.0301 [id number] Information not available 05/22/2022 Are There Any Guns Present In Your Home? No MIGRATION.0301 [id number] Information not available 05/22/2022 Do You Use Insect Repellent Routinely? No MIGRATION.0301 [id number] Information not available 05/22/2022 Where Do You Live? SingleLevelHouse With Basement MIGRATION.0301 [id number] Information not available 05/22/2022 Presence Of Domestic Violence No [email or web address] Information not available 01/14/2024 Guns Present In The Home? No [email or web address] Information not available 01/14/2024 Are You Able To Care For Yourself? Yes Information not available 01/14/2024 Are You Blind Or Do Yo Have Difficulty Seeing? No [email or web address] Information not available 01/14/2024 General Stress Level? Moderate [email or web address] Information not available 01/14/2024 Live Alone Of With Others? With Others [email or web address] Information not available 01/14/2024 Do You Have A Medical Power Of Rail Track Layer? No MIGRATION.0301 [id number] Information not available 05/22/2022 What Was The Date Of Your Most Recent Tobacco Screening? 06/23/2024 Information not available 06/23/2024 How Many Children Do You Have? 3 [email or web address] Information not available 01/14/2024 Have You Ever Been Counseled For Unhealthy Alcohol Use? No Information not available 01/14/2024 Do You Have Any Pets? Yes Dog [email or web address] Information not available 01/14/2024 What Is Your Relationship Status? MIGRATION.0301 [id number] Information not available 05/22/2022 Do You Use Your Seat Belt Or Car Seat Routinely? Yes MIGRATION.0301 [id number] Information not available 05/22/2022 Are You Sexually Active? No [email or web address] Information not available 01/14/2024 Do You Have Smoke And Carbon Monoxide Detectors In Your Home? Yes MIGRATION.0301 194531 Information not available 05/22/2022 Are You Passively Exposed To Smoke? Yes MIGRATION.0301 139380 Information not available 05/22/2022 Are There Any Smokers In Your House? Yes MIGRATION.0301 [id number] Information not available 05/22/2022 What Types Of Sporting Activities Do You Participate In? None Information not available 01/14/2024 Do You Feel Stressed (tense, Restless, Nervous, Or Anxious, Or Unable To Sleep At Night)? [id number] MIGRATION.0301 [id number] Information not available 05/22/2022 Do You Use Any Illicit Or Recreational Drugs? No MIGRATION.0301 [id number] Information not available 05/22/2022 Do You Use Sunscreen Routinely? No MIGRATION.0301 [id number] Information not available 05/22/2022 Has Tobacco Cessation Counseling Been Provided? No N/A Information not available 06/26/2022 Have You Recently Traveled Abroad? No MIGRATION.0301 [id number] Information not available 05/22/2022 Do You Have Any Dietary Restrictions? No MIGRATION.0301 822285 Information not available 05/22/2022 Do You Or Have You Ever Used Any Other Forms Of Tobacco Or Nicotine? No MIGRATION.0301 [id number] Information not available 05/22/2022 How Many Days In The Past Year Have You Consumed 4 Or More Drinks? -1 [email or web address] Information not available 01/14/2024 Sex: Female Functional Status Question Answer Note LastModified by Organizat ion Details LastModified Time Do you have difficulty walking or climbing stairs? No MIGRATION.[id number] 026 Information not available 05/22/2022 Do you have transportation difficulties? No MIGRATION.[id number] 026 Information not available 05/22/2022 Are you able to walk? YESWOREST MIGRATION.[id number] 026 Information not available 05/22/2022 Do you have difficulty doing errands alone? No MIGRATION.3745776 026 Information not available 05/22/2022 Are you able to care for yourself? Yes MIGRATION.4986310 026 Information not available 05/22/2022 Do you have difficulty dressing or bathing? No MIGRATION.[id number] 026 Information not available 05/22/2022 What is your exercise level? Moderate MIGRATION.[id number] 026 Information not available 05/22/2022 Mental Status Question Answer Note LastModified by Organization D etails LastModified Time Do you have difficulty concentrating, remembering or making decisions? No [email or web address] Information no t available 01/14/2024 Family History Relationship Description Onset Age of this Age Resolved Age Notes LastModified by Organization Details LastModified Time Mother Diabetes mellitus MIGRATION.358 [id number] Not available 05/22/2022 01:25:25 Father Schizophreni a MIGRATION.682 [id number] Not available 05/22/2022 01:25:25 Brother Malignant neoplasm of brain MIGRATION.279 [id number] Not available 05/22/2022 01:25:25 Sister Mental disorder MIGRATION.550 [id number] Not available 05/22/2022 01:25:26 Sister Myocardial infarction MIGRATION.946 [id number] Not available 05/22/2022 01:25:26 Medical History Condition Response NERVE DISEASE N BLINDNESS N RHEUMATIC FEVER N KIDNEY STONES N BLADDER PROBLEMS N MRSA N OTHER # 1 Y POLIO N LUNG DISEASE/DISORDER N HISTORY OF DRUG ABUSE N COPD N RADIATION / CHEMOTHERAPY N Other # 2 N BLOOD DISEASES N EAR OR HEARING PROBLEMS N MUMPS N SHINGLES N BOWEL PROBLEMS N DEPRESSION (INCLUDING POST ) Y STROKE/TIA N ULCERS N BENIGN PROSTATIC HYPERPLASIA N MEASLES N HYPOTENSION N MYOCARDIAL INFARCTION N OBESITY N GERD/NAUSEA N ANEURYSM N URINARY/BLADDER/KIDNEY PROBLEMS Y CORONARY ARTERY DISEASE (CAD) N ADDICTION CONCERNS N ENDOMETRIOSIS N Impotence N USE OF BLOOD THINNERS N SKIN PROBLEMS N GASTROINTESTINAL DISORDER N PERIPHERAL VASCULAR DISEASE N MUSCLE,JOINT OR BONE PROBLEMS N GASTROINTESTINAL BLEEDING N BLOOD CLOTS N ASTHMA N CATARACTS N ERECTILE DYSFUNCTION N VARICOSITIES N GI PROBLEMS N Low Testosterone N INFERTILITY N AIDS/HIV N CHEMOTHERAPY / RADIATION N LIVER DISEASE N MALE HYPOGONADISM N HYPERTENSION Y Deficiency Y TOURETTE'S N ANXIETY DISORDER Y BLOOD TRANSFUSION N ANEMIA/BLOOD DISORDER Y CHRONIC EAR INFECTIONS N BRONCHITIS N TUBERCULOSIS N GLAUCOMA N FOOT PROBLEM N DIVERTICULITIS N CHICKENPOX N SLEEP APNEA N INFECTIOUS DISEASE N HEART ARRHYTHMIA N PROSTATE N INSOMNIA N HIGH CHOLESTEROL / HYPERLIPIDEMIA Y HYPERTHYROIDISM N EYE PROBLEMS N EDEMA N CHRONIC PAIN SYNDROME N HYPOTHYROIDISM N CAROTID BLOCKAGE N CONSTIPATION N BACK / NECK PROBLEMS N ATHEROSCLEROSIS N BREAST PROBLEMS N DIALYSIS N ECZEMA N OSTEOPOROSIS N ARTHRITIS N APPENDICITIS N DIABETES, TYPE Y BAD TEETH N ENT N HEARTBURN / REFLUX N AUTISM SPECTRUM DISORDER (ASD) N HEPATITIS / LIVER DISEASE N GOUT N SLEEP DISORDER Y ALZHEIMER'S DISEASE N Brain Problems N HERPES N DEMENTIA N HEADACHES/MIGRAINES Y SEIZURES/EPILEPSY N VASCULAR DISEASE N PACEMAKER N Blood Disorder N DIZZINESS N HEART DISEASE/HEART PROBLEMS N KIDNEY DISEASE N MULTIPLE SCLEROSIS N CARDIAC ARRHYTHMIA N CANCER: SPECIFY N ATRIAL FIBRILLATION N Gall Stones N PULMONARY EMBOLISM N AUTOIMMUNE DISEASE N Gynecological HistoryNo gynecological history recorded. Obstetrics History GPAL:G 0 P 0 0 0 0 Immunizations Vaccine Type Date Status Note Provider Nam e and Address Organization Details Recorded Time Pneumococcal conjugate PCV 13 2 completed Not Available [facility] 05/22/2022 01:28:20 Influenza, high-dose, trivalent, PF 4 completed Juliana Esquivel MD [address], [facility] [address], [place], [address], [facility] 01/15/2024 20:21:49 Past Encounters Encounter ID Performer Location Encounter Start Date Encounter Closed Date Diagnosis/Indication Diagnosis SNOMED-CT Code Diagnosis ICD10 Code Diagnosis Note [id number] [facility] Internal Med Chiara guzmán [address] [place] [address] , [place] [address] 11/20/2021 00:00:00 11/21/2021 11:38:36 [id number] _ATHENA_M IGRATION_ DEFAULT_1 _1 , 12/20/2021 00:00:00 12/20/2021 11:43:54 [id number] _ATHENA_M IGRATION_ DEFAULT_1 _1 , 12/26/2021 00:00:00 12/26/2021 11:39:18 [id number] _ATHENA_M IGRATION_ DEFAULT_1 _1 , 01/17/2022 00:00:00 01/17/2022 09:59:15 [id number] [facility] Internal Med [facility] [address], [address] [place] [address] 02/27/2022 00:00:00 02/27/2022 17:20:05 [id number] Juliana thomas MD [facility] Internal [facility] [address] [facility], [facility] [address] [place] [address] 06/26/2022 16:40:44 06/26/2022 17:06:25 Screening - NAD 136450519 Z13.9 C-scope: Get this if not done, ordered 06/26/2022 PAP: Get thisMammog romario: Get thisDEXA: Get this Get yearly flu shotGet Tdap if not doneUTD on PCV #13 11/20/2021 Can do shingles vaccineDo COVID 19 vaccine and its boosters RTC in 3 months, do labs, ER if worseShe and her GD Gera did verbalize her understand ing of the above Essential hypertension 65727218 I10 On lisinopril 10mg dailyGet labsEK11/20/2021 : NSR, no obvious STT changes Stress test 12/16/[address] [facility] [address] ly 12/19/2021 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 900632631 E11.9 On metformin 1000mg bidOn glimepirid e 2mg 2 tabs bidOn levemir 25 U dailyOn farxiga 10mg dailyOff victoza 0.6mg dailyOn Ozempic Get labs Dr Buchanan 12/26/2021 ; Started on ozempic Schizophrenia 04919450 F 20.9 On duloxetine 60mg dailyOn prazosin 2mg dailyOn quetiapine On hydroxyzin e Sees Dr Webber's NPNot suicidal or homicidal Gastroesop hageal reflux disease without esophagitis 851801108 K21.9 On pantoprazo le 20mg daily, take only as needed Hyperlipidemia 69325814 E78.5 On rosuvastat in 40mg dailyGet labs Screening for malignant neoplasm of colon 281762888 Z12.11 Screening mammography 24 462813 Z12.31 Screening for osteoporosis 514963390 Z13.820 Gynecologi c examination 90453702 Z01.419 Vitamin D deficiency 347 15002 E55.9 [id number] Naye Buchanan MD [facility] [place] [place] [address] [place] [address] 08/07/2022 10:36:31 08/07/2022 11:43:01 Uncontrolled type 2 diabetes mellitus 226848448 E11.65 a1c of 10% down from 14.4%- recommende d GLP1 agonist therapy as she is having trouble at times with cravings of sweets and portion control. She does exercise at least 3 days a week at 45 minutes a time. 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 She has no hx of pancreatit is or medullary thyroid cancer and is willing to trial on a GLP1 agonist therapy. She was advised to contact clinic if she experience s any nausea, vomiting or significan t thyroid pain / swelling or abdominal pain so we can discuss and discontinu e and potentiall y look to other therapy. Will trial on ozempic 0.25 mg SQ weekly x 4 weeks then increase to 0.5 mg SQ weekly with largest meal of that day as tolerated. continue metformin and transition to twice daily levemir 12 units in morning and 18 units at bedtime and patient advised to titrate up by 2 units every 4 days until fasting glucose is running 90-120 mg/dL consistent ly. Encouraged patient to test sugars prebreakfa st and predinner and at times before bedtime to maintain log for review at return visit. Recommend she take her glimepirid e on glucose scale according to glucose checks. If sugars are running under 100 mg/dL hold glimepirid e, if 101-140 mg/dL take half tablet, if 141-180 mg/dL take full tablet and if over 180 mg/dL take 2 tablets for the full 2 mg of glimepirid e up to twice daily before meals. If sugars are consistent ly over 180 mg/dL she was advised to contact clinic and notify me so we can modify changes. Patient advised to bring glucose meter at return visit for review. send for freestyle naseem sensor as patient compliant with glucose testing and taking insulin- will wear this for better control and consistenc y. Abdominal pain 70254229 R10.[address] abdomen to assess for any pancreatic changes- per patient her gi pain is every morning when waking up and having more diarrhea. Screening for malignant neoplasm of colon 642794384 Z12.11 refer to gastroente rology for colonoscop y as she is overdue. Dyslipidemia 105752840 E 78.5 continue statin therapy. Spent up to 28 minutes preparing to see the patient (eg, review of tests), obtaining and/or reviewing separately obtained history, performing a medically appropriat e examinatio n and evaluation , counseling and educating the patient, ordering medication s, tests, along with documentin g clinical informatio n in the electronic health record, independen tly interpreti ng results and communicat ing results to the patient. rtc in 3-4 months. Patient was provided a handwritte n lab order which contains our fax number. If she chooses to go outside of the [facility] system to obtain labwork she was advised to provide our fax number and my informatio n to the lab she will be obtaining labwork from in order to have her labs properly forwarded over for me to review so there is no loss of follow up due to use of outside network. She was also advised to contact our clinic informing us that she has completed her labwork so we are aware we will need to reach out to the appropriat e laboratory to request her results be forwarded to us so I might have the ability to review and make further medical decision making in her case. She voiced understand ing. [id number] Juliana thomas MD [facility] Internal [facility] [address] [facility], [place] [address] 11/04/2022 17:02:34 11/04/2022 17:56:05 Screening - NAD 150549742 Z13.9 C-scope: Get this if not done, ordered 06/26/2022 PAP: Get thisMammog romario: Get thisDEXA: Get this Get yearly flu shotGet Tdap if not doneUTD on PCV #13 11/20/2021 Can do shingles vaccineDo COVID 19 vaccine and its boosters RTC in 3 months, do labs, ER if worseShe and her GD Gera did verbalize her understand ing of the above Essential hypertension 72580540 I10 On lisinopril 10mg dailyGet labsEK11/20/2021 : NSR, no obvious STT changes Stress test 12/16/[address] [facility] [address] ly 12/19/2021 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 570278522 E11.9 On metformin 1000mg bidOn glimepirid e 2mg 2 tabs bidOn levemir 12U at am and 18U at pmOff farxiga 10mg dailyOff victoza 0.6mg dailyOn Ozempic Get labs Dr Buchanan next apt 11/07/2022 Schizophrenia 00296131 F 20.9 Not on duloxetine 60mg dailyOn prazosin 1mg dailyOn quetiapine On hydroxyzin e Sees Dr Webber's NPNot suicidal or homicidal Gastroesop hageal reflux disease without esophagitis 145268207 K21.9 On pantoprazo le 20mg daily, take only as needed Hyperlipidemia 78810480 E78.5 On rosuvastat in 40mg dailyGet labs Screening for malignant neoplasm of colon 012148158 Z12.11 Screening mammography 24 309761 Z12.31 Screening for osteoporosis 518139913 Z13.820 Gynecologi c examination 08166890 Z01.419 Vitamin D deficiency 347 60864 E55.9 Liver enzy mes level above reference range 614755218 R74.8 US liver 07/18/2022 Neg [id number] Naye Buchanna MD [facility] [place] [address] [place] [address] 11/07/2022 10:45:33 11/07/2022 11:40:58 Well controlled type 2 diabetes mellitus 944612266 E11.9 a1c of 6.8% down from 10%- will continue on levemir encouraged she split her dosing and take 7 units in morning and 8 units at bedtime and increase or decrease by 1 unit every 3 days to maintain fasting glucose of 90-130 mg/dL will reduce ozempic to 0.25 mg once weekly as she has had over 40 pound weight loss with ideal BMI. Continue metformin but drop to once daily with dinner. 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 Will drop glimepirid e down to 1 mg dose and she is aware to take with breakfast mainly and hold if premeals sugars under 110 mg/dL and take full dose if over 150 mg/dL. Dyslipidemia 272305035 E 78.5 continue statin therapy. Spent up to 25 minutes preparing to see the patient (eg, review of tests), obtaining and/or reviewing separately obtained history, performing a medically appropriat e examinatio n and evaluation , counseling and educating the patient, ordering medication s, tests, along with documentin g clinical informatio n in the electronic health record, independen tly interpreti ng results and communicat ing results to the patient. Patient can be followed by PCP - she/he is aware of my resignatio n and last day of January 02. If needed his/her PCP can refer patient to another endocrinol ogist in the area. All questions /concerns answered and refills necessary at visit today. [id number] Festus Moscoso DPM [facility] [address] [facility], [address] [place] [address] 01/27/2023 16:26:42 01/28/2023 16:30:48 Type 2 diabetes mellitus without complication 483670251 E11.9 Patient educated on neuropathy , diabetes, diabetic diet, and daily foot exams. Patient is to check feet daily for new wounds, blisters, redness to prevent infection and ulceration s to the feet. Patient will return to clinic in 3 months for diabetic foot workup. Dystrophia unguium 31921 009 L60.3 Nails 1 through 10 were debrided with sharp mechanical debridemen t without incident. Nails were debrided and greater than 50% length and thickness where needed. [id number] Juliana thomas MD [facility] Internal Med [facility] [address] [place] [address] 02/05/2023 16:38:10 02/05/2023 17:36:07 Screening - NAD 085818932 Z13.9 C-scope: Get this if not done, ordered 06/26/2022 PAP: Get thisMammog romario: 11/14/2022 : NegDEXA: 11/14/2022 : Osteopenia , can do vit D and calcium Get yearly flu shotGet Tdap if not doneUTD on PCV #13 11/20/2021 Can do shingles vaccineDo COVID 19 vaccine and its boostersCa n do RSV vaccine RTC in 3 months, do labs, ER if worseShe and her GD Gera did verbalize her understand ing of the above Essential hypertension 82701534 I10 On lisinopril 10mg dailyGet labsEK11/20/2021 : NSR, no obvious STT changes Stress test 12/16/[address] ly 12/19/2021 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 888617308 E11.9 On metformin ER 500mg dailyOn glimepirid e 2mg 2 tabs bidOn levemir 12U at am and 18U at pmOff farxiga 10mg dailyOff victoza 0.6mg dailyOn Ozempic, as per Dr Buchanan 11/07/2022 , should be on 0.25mg weekly Get labs Dr Buchanan next apt 11/07/2022 Schizophrenia 04685559 F 20.9 Not on duloxetine 60mg dailyOn prazosin 1mg dailyOn quetiapine On hydroxyzin e Sees Dr Webber's NPNot suicidal or homicidal Gastroesop hageal reflux disease without esophagitis 545217459 K21.9 On pantoprazo le 20mg daily, take only as needed Hyperlipidemia 37778119 E78.5 Not on rosuvastat in 40mg dailyOn atorvastat in 80mg dailyGet labs Screening for malignant neoplasm of colon 799389713 Z12.11 Screening mammography 24 795486 Z12.31 Screening for osteoporosis 761784898 Z13.820 Gynecologi c examination 43800790 Z01.419 Vitamin D deficiency 347 26724 E55.9 Liver enzy mes level above reference range 143671167 R74.8 US liver 07/18/2022 Neg GGT: 11/05/2022 : Neg Upper resp iratory infection 66524342 J06.9 C/o cough, clear sputum, no blood, no fevers or chills, ongoing since at least 4 weeksGet COVID 19 RT PCR, rapid strep and flu, get on Z-pack, ER if worse, she verbalized her understand ing of the above [id number] Juliana thomas MD [facility] [place] [address] [facility] [address] [place] [address] 05/14/2023 16:41:26 05/14/2023 17:20:42 Screening - NAD 970271389 Z13.9 C-scope: Get this if not done, ordered 06/26/2022 PAP: Get thisMammog romario: 11/14/2022 : NegDEXA: 11/14/2022 : Osteopenia , can do vit D and calcium Get yearly flu shotGet Tdap if not doneUTD on PCV #13 11/20/2021 Can do shingles vaccineDo COVID 19 vaccine and its boostersCa n do RSV vaccine RTC in 3 months, do labs, ER if worseShe did verbalize her understand ing of the above Essential hypertension 02109276 I10 On lisinopril 10mg dailyGet labsEK11/20/2021 : NSR, no obvious STT changes Stress test 12/16/[address] [facility] [address] ly 12/19/2021 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 329515158 E11.9 On metformin ER 500mg dailyOn glimepirid e 2mg 2 tabs bidOn levemir 12U at am and 18U at pmOff farxiga 10mg dailyOff victoza 0.6mg dailyOn Ozempic 0.5mg weekly Get labs Dr Buchanan Schizophrenia 11998817 F 20.9 Not on duloxetine 60mg dailyOn prazosin 1mg dailyOn quetiapine On hydroxyzin e Sees Dr Webber's NPNot suicidal or homicidal Gastroesop hageal reflux disease without esophagitis 294857220 K21.9 On pantoprazo le 20mg daily, take only as needed Hyperlipidemia 42991977 E78.5 Not on rosuvastat in 40mg dailyOn atorvastat in 80mg dailyGet labs Screening for malignant neoplasm of colon 949475621 Z12.11 Screening mammography 24 571871 Z12.31 Screening for osteoporosis 453266258 Z13.820 Gynecologi c examination 98834711 Z01.419 Vitamin D deficiency 347 17248 E55.9 Liver enzy mes level above reference range 781688177 R74.8 US liver 07/18/2022 NegGGT: 11/05/2022 : Neg [id number] Juliana thomas MD [facility] [place] [address] , [address] [place] [address] 09/17/2023 16:41:29 09/17/2023 17:14:10 Screening - NAD 183548771 Z13.9 C-scope: 12/01/2022 : Dr Romy BYRD: She does not want to do this, was told that she did not need to, denies any complaints Mammogram: 11/14/2022 : NegOrdered 09/17/2023 DEXA: 11/14/2022 : Osteopenia , can do vit D and calcium Get yearly flu shotGet Tdap if not doneUTD on PCV #13 11/20/2021 Can do shingles vaccineDo COVID 19 vaccine and its boostersCa n do RSV vaccine RTC in 3 months, do labs, ER if worseShe did verbalize her understand ing of the above Essential hypertension 94407950 I10 On lisinopril 10mg dailyGet labsEK11/20/2021 : NSR, no obvious STT changes Stress test 12/16/[address] [facility] [address] ly 12/19/2021 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 244193372 E11.9 On metformin ER 500mg dailyOn glimepirid e 2mg 2 tabs bidOn levemir 12U at am and 18U at pmOff farxiga 10mg dailyOff victoza 0.6mg dailyOn Ozempic 0.5mg weekly Get labs Dr Buchanan Schizophrenia [id number] F 20.9 Not on duloxetine 60mg dailyOn prazosin 1mg dailyNot on quetiapine On hydroxyzin e Seen Dr Webber's NPWill refer to [facility] psychiatri [facility] Allie FACULTY DEAN as she does not want to driveNot suicidal or homicidal Gastroesop hageal reflux disease without esophagitis 006055270 K21.9 On pantoprazo le 20mg daily, take only as needed Hyperlipidemia 60623369 E78.5 Not on rosuvastat in 40mg dailyOn atorvastat in 80mg dailyGet labs Screening for malignant neoplasm of colon 552274894 Z12.11 Screening mammography 24 856667 Z12.31 Screening for osteoporosis 315960816 Z13.820 Gynecologi c examination 61656555 Z01.419 Vitamin D deficiency 347 57624 E55.9 Liver enzy mes level above reference range 506265700 R74.8 US liver 07/18/2022 NegGGT: 11/05/2022 : Neg [id number] Juliana thomas MD [facility] Internal Med [facility] [address] [facility] [facility] [address] [place] [address] 01/14/2024 09:01:39 01/14/2024 09:57:45 Screening - NAD 412782949 Z13.9 C-scope: 12/01/2022 : Dr Stanton PAP: She does not want to do this, was told that she did not need to, denies any complaints Mammogram: 11/14/2022 : NegOrdered 09/17/2023 DEXA: 11/14/2022 : Osteopenia , can do vit D and calcium Get yearly flu shotGet Tdap if not doneUTD on PCV #13 11/20/2021 Can do shingles vaccineDo COVID 19 vaccine and its boostersCa n do RSV vaccine RTC in 3 months, do labs, ER if worseShe did verbalize her understand ing of the above Essential hypertension 62475451 I10 On lisinopril 10mg dailyGet labsEK11/20/2021 : NSR, no obvious STT changes Stress test 12/16/[address] [facility] [address] ly 12/19/2021 Referred 01/14/2024 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 534154397 E11.9 Off farxiga 10mg dailyOff victoza 0.6mg daily On metformin ER 500mg dailyOn glimepirid e 2mg 2 tabs bidOn levemir 12U at am and 18U at pmOn Ozempic 0.5mg weekly, tolerates this well, no MEN2 or MCT or thyroid or parathyroi d or pancreatic complaints Get labs Dr Buchanan Schizophrenia 53158693 F 20.9 Not on duloxetine 60mg dailyOn prazosin 1mg dailyNot on quetiapine On hydroxyzin e Seen Dr Webber's NPSees Anna Kelley NPNot suicidal or homicidal Gastroesop hageal reflux disease without esophagitis 812945422 K21.9 On pantoprazo le 20mg daily, take only as needed Hyperlipidemia 21912015 E78.5 Not on rosuvastat in 40mg dailyOn atorvastat in 80mg dailyGet labs Screening for malignant neoplasm of colon 549042502 Z12.11 Screening mammography 24 784199 Z12.31 Screening for osteoporosis 558336168 Z13.820 Gynecologi c examination 00530732 Z01.419 Vitamin D deficiency 347 61060 E55.9 Liver enzy mes level above reference range 822904704 R74.8 US liver 07/18/2022 NegGGT: 11/05/2022 : Neg Anemia 112213047 D64.9 Dr Boss's FACULTY DEAN 11/11/2023 , needs to see him again Insomnia 965043427 G47.0 0 On trazodone 50mg 1-3 tab Anna Seiffert Administra tion of influenza vaccine 40734002 Z23 Adult heal th examination 501917189 Z00.00 Screening for disorder 474639965 Z13.9 [id number] Juliana thomas MD [facility] Internal Med [facility] [address] [facility] [address] [place] [address] 06/23/2024 08:46:18 06/23/2024 09:40:18 Screening - NAD 949640608 Z13.9 C-scope: 12/01/2022 : Dr Stanton PAP: She does not want to do this, was told that she did not need to, denies any complaints Mammogram: 11/14/2022 : NegOrdered 09/17/2023 DEXA: 11/14/2022 : Osteopenia , can do vit D and calcium Get yearly flu shotGet Tdap if not doneUTD on PCV #13 11/20/2021 Can do shingles vaccineDo COVID 19 vaccine and its boostersCa n do RSV vaccine RTC in months, do labs, ER if worseShe did verbalize her understand ing of the above Essential hypertension 13522359 I10 On lisinopril 10mg dailyGet labsEK11/20/2021 : NSR, no obvious STT changes Stress test 12/16/[address] [facility] [address] ly 12/19/2021 Referred 01/14/2024 ECHO 02/22/2024 : [facility] Dr Winn last 02/01/2024 , next was in one month, now will see him next Thursday07/01/2024 at 9.00am 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 892289788 E11.9 Off farxiga 10mg dailyOff victoza 0.6mg daily On metformin ER 500mg dailyOn glimepirid e 2mg 2 tabs bidOn levemir 12U at am and 18U at pmOn Ozempic 0.5mg weekly, tolerates this well, no MEN2 or MCT or thyroid or parathyroi d or pancreatic complaints Get labs Dr Buchanan Schizophrenia 25243904 F 20.9 Not on duloxetine 60mg dailyOn prazosin 1mg dailyNot on quetiapine On hydroxyzin e Seen Dr Webber's NPSees Anna Kelley NPNot suicidal or homicidal Gastroesop hageal reflux disease without esophagitis 831821653 K21.9 On pantoprazo le 20mg daily, take only as needed Hyperlipidemia 27539626 E78.5 Not on rosuvastat in 40mg dailyOn atorvastat in 80mg daily, advised to get labs and take her medication s!Get labs Screening mammography 24 684975 Z12.31 Gynecologi c examination 26592783 Z01.419 Vitamin D deficiency 347 60951 E55.9 Liver enzy mes level above reference range 540674947 R74.8 US liver 07/18/2022 NegGGT: 11/05/2022 : Neg Anemia 223681742 D64.9 Dr Boss's FACULTY DEAN 11/11/2023 , needs to see him again Insomnia 470646498 G47.0 0 On trazodone 50mg 1-3 tab Anna Seiffert Health Concerns Section Related Observation LastModified by Organization Detai ls LastModified Time None Recorded Concern Status LastModified by Organization Details LastModified Time None Recorded Advance Directives Directive N: Payers Encounter Date Sequence Insurance Name Policy Number Policy Jefferson Covered Member ID Jefferson Member ID Guarantor Name 02/05/[address] [facility] (MEDICARE REPLACEMENT/A DVANTAGE - PPO) [id number] Cindi Noel [id number] Cindi Noel 05/14/[address] [facility] (MEDICARE REPLACEMENT/A DVANTAGE - PPO) [id number] Cindi Noel [id number] Cindi Noel 09/17/[address] [facility] (MEDICARE REPLACEMENT/A DVANTAGE - PPO) [id number] Cindi Noel [id number] Cindi Noel 01/14/[address] [facility] (MEDICARE REPLACEMENT/A DVANTAGE - PPO) [id number] Cindi Noel [id number] Cindi Noel 06/23/[address] [facility] (MEDICARE REPLACEMENT/A DVANTAGE - PPO) [id number] Cindi Noel [id number] Cindi Noel Notes Date Note Type Note Provider Name and Address Organization Details Recorded Time 02/05/2023 text/html OV 11/20/2021:He re to establish carePast Hx:Radha Thao social family and surgical historyShmarysol is here with her to discuss above, giovanny Ricarda also needs an apt with a psychiatrist, not suicidal or homicidal, but is on prazosin for nightmaresOV 02/27/2022:Here for her f/u apt, she is doing well, she did do the labs OV 06/26/2022:Here for her f/u apt, she is feeling well, no new labs OV 11/04/2022: Here for her f/u apt, she is doing well today, no recent labs noted, here with her KENNY OV 02/05/2023: Here for her f/u apt, c/o URI sx, c/o cough, sputum, no blood in sputum, no fevers or chills, no chest pain, no SOB, no wheezing, last labs were on 11/06/2022 Juliana Esquivel MD [address] [facility], [address], [place], [address], [facility] [employer] 02/05/2023 17:39:12 05/14/2023 text/html OV 11/20/2021:He re to establish carePast Hx:Radha Thao social family and surgical historyShmarysol is here with her to discuss above, giovanny Ricarda also needs an apt with a psychiatrist, not suicidal or homicidal, but is on prazosin for nightmaresOV 02/27/2022:Here for her f/u apt, she is doing well, she did do the labs OV 06/26/2022:Here for her f/u apt, she is feeling well, no new labs OV 11/04/2022: Here for her f/u apt, she is doing well today, no recent labs noted, here with her KENNY OV 02/05/2023: Here for her f/u apt, c/o URI sx, c/o cough, sputum, no blood in sputum, no fevers or chills, no chest pain, no SOB, no wheezing, last labs were on 11/06/2022 OV 05/14/2023: Here for her f/u apt, she is doing well today, no new labs, would like to refill her ozempic Juliana Esquivel MD [address] [facility], [address] [address], [place], [address], [facility] [employer] 05/14/2023 17:36:25 09/17/2023 text/html OV 11/20/2021:He re to establish careSdst Hx:ALFONSOIIBaljinder Thao social family and surgical historyShmarysol is here with her to discuss above, get labsAlexandra also needs an apt with a psychiatrist, not suicidal or homicidal, but is on prazosin for nightmaresOV 02/27/2022:Here for her f/u apt, she is doing well, she did do the labs OV 06/26/2022:Here for her f/u apt, she is feeling well, no new labs OV 11/04/2022: Here for her f/u apt, she is doing well today, no recent labs noted, here with her KENNY OV 02/05/2023: Here for her f/u apt, c/o URI sx, c/o cough, sputum, no blood in sputum, no fevers or chills, no chest pain, no SOB, no wheezing, last labs were on 11/06/2022 OV 05/14/2023: Here for her f/u apt, she is doing well today, no new labs, would like to refill her ozempic OV 09/17/2023: Here for her f/u apt, she is doing well today Juliana Esquivel MD [address], [address], [place], [address], [facility] [employer] [facility] [employer] [facility] 09/17/2023 17:35:53 01/14/2024 text/html OV 11/20/2021:He re to establish carePast Hx:[facility] Corporationlupillo social family and surgical historyShmarysol is here with her to discuss above, giovanny Chowdary also needs an apt with a psychiatrist, not suicidal or homicidal, but is on prazosin for nightmaresOV 02/27/2022:Here for her f/u apt, she is doing well, she did do the labs OV 06/26/2022:Here for her f/u apt, she is feeling well, no new labs OV 11/04/2022: Here for her f/u apt, she is doing well today, no recent labs noted, here with her KENNY OV 02/05/2023: Here for her f/u apt, c/o URI sx, c/o cough, sputum, no blood in sputum, no fevers or chills, no chest pain, no SOB, no wheezing, last labs were on 11/06/2022 OV 05/14/2023: Here for her f/u apt, she is doing well today, no new labs, would like to refill her ozempic OV 09/17/2023: Here for her f/u apt, she is doing well today OV 01/14/2024: Here for her f/u apt, she feels well, no new labs Juliana Esquivel MD [address], [facility] [address], [place], [address], [facility] [employer] [facility] [employer] 01/15/2024 20:22:33 06/23/2024 text/html OV 11/20/2021:He re to establish carePast Hx:Radha Thao social family and surgical historyShmarysol is here with her to discuss above, giovanny Chowdary also needs an apt with a psychiatrist, not suicidal or homicidal, but is on prazosin for nightmaresOV 02/27/2022:Here for her f/u apt, she is doing well, she did do the labs OV 06/26/2022:Here for her f/u apt, she is feeling well, no new labs OV 11/04/2022: Here for her f/u apt, she is doing well today, no recent labs noted, here with her KENNY OV 02/05/2023: Here for her f/u apt, c/o URI sx, c/o cough, sputum, no blood in sputum, no fevers or chills, no chest pain, no SOB, no wheezing, last labs were on 11/06/2022 OV 05/14/2023: Here for her f/u apt, she is doing well today, no new labs, would like to refill her ozempic OV 09/17/2023: Here for her f/u apt, she is doing well today OV 01/14/2024: Here for her f/u apt, she feels well, no new labs OV 06/23/2024: Here for her f/u apt, she states that she has not been taking all her medications, she has also not kept her apt with the yeast culture developer, she has not done her labs Juliana Esquivel MD [address] [facility] [address], [address] [address], [place], [address], [facility] [employer] 06/23/2024 09:38:06 OBGyn Episode No OBEpisode recorded.
--- OUTSIDE RECORDS SUMMARY | 2024-06-27 07:17 | XMS_ITS | Data Portability ---
Author Organization [facility] Address [address] [place] [address] Assessment Encounter Date Assessment Date Assessment LastModified by Organization Details LastModified Time 11/18/2022 11/18/2022 Annual gynecological exam performed. Patient will come back in a year unless there are new symptoms. Not available 11/18/2022 18:21:29 Plan of Treatment Reminders Order Date Submit Date Provider Last Modified By Organization Details Last Modified Time Details Appointments None record ed. Lab None record ed. Referral None record ed. Procedures None record ed. Surgeries None record ed. Imaging None record ed. Medication Orders None record ed. Patient TargetsNo targets recorded. Patient InstructionsNo instructions recorded. Reason for Referral None Reported. Procedures Surgical History Date Name Laterality Status Provider Name and Address Organization Details Recorded Time 3 Date of Last Mammogram completed [facility] 11/18/2022 18:24:17 3 Most Recent Bone Density completed [facility] 11/18/2022 18:24:35 Gastric bypass for obesity completed [facility] 11/18/2022 18:27:22 Imaging Results None recorded. Procedure Notes None recorded. Medical Equipment None Reported. Allergies No known drug allergies Medications Name Sig Start Date Stop Date Status Note LastModified by Organization Details LastModified Time prazosin 1 mg capsule TAKE 1 CAPSULE BY MOUTH EVERY DAY AT BEDTIME 11/18 completed Not Available Not Available Not Available quetiapine 200 mg tablet TAKE 1 TABLET BY MOUTH EVERY DAY AT BEDTIME 11/18 completed Not Available Not Available Not Available quetiapine 100 mg tablet active Not Available Not Available Not Available glimepiride 2 mg tablet TAKE 2 TABLETS BY MOUTH TWICE DAILY WITH MEALS 11/18 completed Not Available Not Available Not Available glimepiride 1 mg tablet TAKE 2 TABLETS BY MOUTH TWICE DAILY BEFORE MEALS active Not Available Not Available No t Available metformin 1,000 mg tablet TAKE 1 TABLET BY MOUTH TWICE DAILY 11/18 completed Not Available Not Available Not Available lisinopril 10 mg tablet TAKE 1 TABLET BY MOUTH EVERY DAY active Not Available Not Available No t Available hydroxyzine HCl 25 mg tablet TAKE 1/2 TO 1 TABLET BY MOUTH TWICE DAILY NEEDED FOR ANXIETY OR PANIC 11/18 completed Not Available Not Available Not Available ergocalcife rol (vitamin D2) 1,250 mcg (50,000 unit) capsule TAKE 1 CAPSULE BY MOUTH EVERY WEEK active Not Available Not Available No t Available metformin ER 500 mg tablet,exte nded release 24 hr TAKE 1 TABLET BY MOUTH EVERY DAY AT DINNER active Not Available Not Available No t Available rosuvastati n 40 mg tablet TAKE 1 TABLET BY MOUTH EVERY DAY 11/18 completed Not Available Not Available Not Available Levemir FlexPen 100 unit/mL (3 mL) solution subcutaneou s insulin pen INJECT 7 UNITS UNDER THE SKIN EVERY MORNING AND 8 UNITS UNDER THE SKIN EVERY NIGHT AT BEDTIME active Not Available Not Available No t Available quetiapine 50 mg tablet 11/18 completed Not Available Not Available Not Available cholecalcif bryant (vitamin D3) 1,250 mcg (50,000 unit) capsule TAKE 1 CAPSULE BY MOUTH ONCE A WEEK active Not Available Not Available No t Available Farxiga 10 mg tablet TAKE 1 TABLET BY MOUTH EVERY DAY IN THE MORNING 11/18 completed Not Available Not Available Not Available FreeStyle Santi 2 Sensor kit CHANGE SENSOR EVERY 14 DAYS 11/18 completed Not Available Not Available Not Available FreeStyle Santi 2 [place] USE DIRECTED 11/18 completed Not Available Not Available Not Available Ozempic 0.25 mg or 0.5 mg (2 mg/3 mL) subcutaneou s pen injector INJECT 0.25 MG UNDER THE SKIN ONCE A WEEK AT DINNER active Not Available Not Available No t Available Vitals Date Recorded Body height Body mass index (BMI) Body weight Systolic blood pressure Diastolic blood pressure Provider Name and Address Organization Details Last Updated DateTime 11/18/2022 162.56 cm 22.8 kg/m2 60031.79 g 151 mm[Hg] 90 mm[Hg] Luli Kumari [facility] 18:22:07 Social History Question Answer Notes LastModified by Organizat ion Details LastModified Time Tobacco Smoking Status Never Smoker Luli Kumari null, [facility] 11/18/2022 18:27:13 What Is Your Level Of Alcohol Consumption? None Information not available 11/18/2022 In The 14 Days Before Symptom Onset, Have You Had Close Contact With A Laboratory-confirm ed COVID-19 While That Case Was Ill? No Information n ot available 11/18/2022 In The 14 Days Before Symptom Onset, Have You Had Close Contact With A Person Who Is Under Investigation For COVID-19 While That Person Was Ill? No Information not available 11/18/2022 Have You Been To An Area Known To Be High Risk For COVID-19? No Information not available 11/18/2022 Do You Use Any Illicit Or Recreational Drugs? No Information not available 11/18/2022 Sex: Unknown Functional Status None recorded. Mental Status None recorded. Family History Relationship Description Onset Age of this Age Resolved Age Notes LastModified by Organization Details LastModified Time Mother Diabetes mellitus Not available 2022 18:26:44 Mother Hypertensive disorder Not available 2022 18:26:56 Sister Diabetes mellitus Not available 2022 18:26:45 Brother Diabetes mellitus Not available 2022 18:26:45 Medical History Condition Response Allergies (Food, seasonal, environmental ) N Other N Breast Cancer N Drug/Latex Allergies/Reactions N Blood Transfusion N Dermatologic Disorders N Lung Disease N Defects or Inherited Disease N Breast Problem N Gestational Diabetes N Hematologic disorders N Anesthesia Complications N History of STI N Deep Vein Thrombosis N Polycystic ovary syndrome N Anxiety Disorder N Autoimmune disease N Arthritis N Infertility N Polyps N Acid Reflux (GERD) N History of abnormal pap N Cancer N Stroke N Varicosities N Neurologic/Epilepsy N Endometriosis N High Cholesterol Y Headaches N Fibromyalgia N Kidney Disease N Heart Problems N Kidney or Bladder Problems N Thyroid Problems N GI Problems N Eating Disorder N Anemia Y Art (IVF or FET) N Psychiatric Illness N Ovarian Cancer N Diabetes Y Pulmonary (TB, Asthma) N Hepatitis/Liver Disease N No Past Medical History N Eczema N Urinary Tract Infection N Abuse/Domestic Violence N Asthma N Trauma/Violence N Depression/ depression N Heart Disease N Pre-Eclampsia N Hypertension Y Osteoporosis N Thrombophilias N Gynecological History Statement/Question Response Date of Last Mammogram 11/14/2022 Most Recent Bone Density 11/14/2022 Menses Monthly N Age of first menstrual cycle 12 HPV Vaccine N Date of Last Pap Smear Current Control Method Menopause LMP Unknown Obstetrics History GPAL:G 4 P 4 0 0 4 Type Value Full Term 4 Living 4 Total 4 Past Encounters Encounter ID Performer Location Encounter Start Date Encounter Closed Date Diagnosis/Indication Diagnosis SNOMED-CT Code Diagnosis ICD10 Code Diagnosis Note [id number] Yumiko Dye [facility] [address] [address] 11/18/2022 17:53:32 11/19/2022 10:48:42 Gynecologic examination [id number] Z01.419 Take Calcium with Vitamin D 12-1500mg daily. Do monthly self breast exams. It is advised to get annual flu shot in the fall and she could obtain at [facility] or [facility] care clinic. If you haven't received the Tdap vaccine in the last 10 years you should obtain one as well. Have mammogram yearly, bone density every 2-3 years and colonoscop y every 5-10 years depending on findings and history. Engage in daily exercise of low impact aerobic exercise 45-60 minutes 4-5 times weekly. Avoid tobacco and illicit drugs as well as using moderation with alcohol intake less than 1-2 8 oz beverages daily. This lifestyle behavior pattern will lead to less health conditions and longer life span. If BMI greater than 25 weight watchers or dietary consult advised. Questions have been answered. Patient appears to understand instructio ns, but if you have any further questions call or respond to this email Pap/hpv d/c unless otherwise indicated. USPSTF recommends against screening for cervical cancer in women older than 65yo, those who've had a hysterecto my for non-cancer indication s, & who have had adequate prior screening & are not otherwise at high risk for cervical cancer. 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 Exam wnl Health Concerns Section Related Observation LastModified by Organization Detai ls LastModified Time None Recorded Concern Status LastModified by Organization Details LastModified Time None Recorded Advance Directives Directive None Recorded Payers Encounter Date Sequence Insurance Name Policy Number Policy Jefferson Covered Member ID Jefferson Member ID Guarantor Name 11/18/2022 1 [facility] (MEDICARE REPLACEMENT/A DVANTAGE - PPO) [id number] Cindi Noel [id number] Cindi Noel Notes Date Note Type Note Provider Name and Address Organization Details Recorded Time 11/18/2022 text/html Annual Car Blocker Post-MenopausalRe ported bypatient.[place] eliecer Symptoms:no menopausal symptoms; normal vaginal lubrication Vaginal Bleeding:history of menopause having occurred; no history of post menopausal bleeding Urinary Symptoms:no hematuria; no incontinence; no nocturia; no urinary frequency Vulva:no genital lesion; no vulvar atrophy Vagina:normal vaginal discharge; no vaginal atrophy Breast:no breast lump; no nipple discharge; no breast pain Sexual Complaints:no sexual complaints Psychological Symptoms:no depression; no anxiety Preventive Measures:encourag e regular mammograms starting age 40; encourage self breast examination; encourage regular exercise; encourage no tobacco use; mammogram performed within the past year; history of recent colonoscopy Yumiko Dye RONI- [address], [place], [address], [facility] 11/18/2022 19:03:23 OBGyn Episode Ob Episode Information Episode Created Date Number of Fetuses Patient Bloodtype Patient rh Status Prepregnancy Weight lbs Domestic Partner Domestic Partner Phone Father Name Launch Steward Status 11/19/19 23 1 CLOSED Fetus Data First Name Last Name Admitted to NICU Weight (g) Sex Living Outcome Pediatric Complications Fetus ID Race Codes Race Delivery Type [phone] Full Term [id number] Vaginal Delivery Manuel Calculation Initial Manuel Date Initial Exam Date Initial Exam Provider Initial Ultrasound Date Last Menstrual Period Date Ultra Sound Weeks Gestation 0 Eighteen To Twenty Week Manuel Update Ultra Sound Date Fundal Height At Umbil Quickening Date Ultra Sound Latest Weeks Gestation Final Manuel Confirmed By Final Manuel Confirmed Date Final Manuel Date Ultra Sound Latest Days Gestation 0 0 Menstrual History Last Menstrual Date Menses Monthly On Bcp Conception Prior Menses Frequency Hcg Plus Date Menarche Onset Age Delivery Information Delivery Date Delivery Type Labor Anesthesia Weeks Gestation Incision Type Labor Labor Length Hrs Delivered By Post Complications Tubal Sterilization Discharge Date Comments 6 40 Discharge Information Feeding Method Contraceptive Method Maternal HG B and HCT Levels Ob Episode Information Episode Created Date Number of Fetuses Patient Bloodtype Patient rh Status Prepregnancy Weight lbs Domestic Partner Domestic Partner Phone Father Name Launch Steward Status 11/19/19 23 1 CLOSED Fetus Data First Name Last Name Admitted to NICU Weight (g) Sex Living Outcome Pediatric Complications Fetus ID Race Codes Race Delivery Type [phone] Full Term 09709 Vaginal Delivery Manuel Calculation Initial Manuel Date Initial Exam Date Initial Exam Provider Initial Ultrasound Date Last Menstrual Period Date Ultra Sound Weeks Gestation 0 Eighteen To Twenty Week Manuel Update Ultra Sound Date Fundal Height At Umbil Quickening Date Ultra Sound Latest Weeks Gestation Final Manuel Confirmed By Final Manuel Confirmed Date Final Manuel Date Ultra Sound Latest Days Gestation 0 0 Menstrual History Last Menstrual Date Menses Monthly On Bcp Conception Prior Menses Frequency Hcg Plus Date Menarche Onset Age Delivery Information Delivery Date Delivery Type Labor Anesthesia Weeks Gestation Incision Type Labor Labor Length Hrs Delivered By Post Complications Tubal Sterilization Discharge Date Comments 8 40 Discharge Information Feeding Method Contraceptive Method Maternal HG B and HCT Levels Ob Episode Information Episode Created Date Number of Fetuses Patient Bloodtype Patient rh Status Prepregnancy Weight lbs Domestic Partner Domestic Partner Phone Father Name Launch Steward Status 11/19/19 23 1 CLOSED Fetus Data First Name Last Name Admitted to NICU Weight (g) Sex Living Outcome Pediatric Complications Fetus ID Race Codes Race Delivery Type 3742.13 4 Full Term [id number] Vaginal Delivery Manuel Calculation Initial Manuel Date Initial Exam Date Initial Exam Provider Initial Ultrasound Date Last Menstrual Period Date Ultra Sound Weeks Gestation 0 Eighteen To Twenty Week Manuel Update Ultra Sound Date Fundal Height At Umbil Quickening Date Ultra Sound Latest Weeks Gestation Final Manuel Confirmed By Final Manuel Confirmed Date Final Manuel Date Ultra Sound Latest Days Gestation 0 0 Menstrual History Last Menstrual Date Menses Monthly On Bcp Conception Prior Menses Frequency Hcg Plus Date Menarche Onset Age Delivery Information Delivery Date Delivery Type Labor Anesthesia Weeks Gestation Incision Type Labor Labor Length Hrs Delivered By Post Complications Tubal Sterilization Discharge Date Comments 0 40 Discharge Information Feeding Method Contraceptive Method Maternal HG B and HCT Levels Ob Episode Information Episode Created Date Number of Fetuses Patient Bloodtype Patient rh Status Prepregnancy Weight lbs Domestic Partner Domestic Partner Phone Father Name Launch Steward Status 11/19/19 23 1 CLOSED Fetus Data First Name Last Name Admitted to NICU Weight (g) Sex Living Outcome Pediatric Complications Fetus ID Race Codes Race Delivery Type [id number] Full Term [id number] Vaginal Delivery Manuel Calculation Initial Manuel Date Initial Exam Date Initial Exam Provider Initial Ultrasound Date Last Menstrual Period Date Ultra Sound Weeks Gestation 0 Eighteen To Twenty Week Manuel Update Ultra Sound Date Fundal Height At Umbil Quickening Date Ultra Sound Latest Weeks Gestation Final Manuel Confirmed By Final Manuel Confirmed Date Final Manuel Date Ultra Sound Latest Days Gestation 0 0 Menstrual History Last Menstrual Date Menses Monthly On Bcp Conception Prior Menses Frequency Hcg Plus Date Menarche Onset Age Delivery Information Delivery Date Delivery Type Labor Anesthesia Weeks Gestation Incision Type Labor Labor Length Hrs Delivered By Post Complications Tubal Sterilization Discharge Date Comments 2 40 Discharge Information Feeding Method Contraceptive Method Maternal HG B and HCT Levels
[2024-06-27 07:49] LABS: Basophils Percent Auto 0.6 % (0.2-1.2); Eosinophils Absolute Auto 0.1 K/mm3 (0-0.3); Eosinophils Percent Auto 1.1 % (0-4.4); Hematocrit 33.5 % (37.0-47.0); Hemoglobin 10.5 g/dL (12.0-15.0); Immature Granulocyte Absolute 0.01 K/mm3 (0.00-0.031); Immature Granulocyte Percent A 0.2 % (0-0.5); Lymphocytes Absolute Auto 2.38 K/mm3 (0.9-3.2); Lymphocytes Percent Auto 50.2 % (18.3-44.2); Mean Corpuscular HGB Conc 31.3 g/dl (32-36); Mean Corpuscular Hemoglobin 28.8 pg (26-34); Mean Platelet Volume 9.1 fl (7.4-10.4); Monocytes Absolute Auto 0.2 K/mm3 (0.1-0.6); Monocytes Percent Auto 5.1 % (2.6-8.5); Neutrophils Percent Auto 42.8 % (45.5-73.1); Platelet Count Result 278 k/mm3 (150-375); Red Blood Count 3.64 M/mm3 (4.2-5.4); Red Cell Distribution Width 13.2 % (11.5-14.5); White Blood Count 4.7 K/mm3 (4.5-10.0)
[2024-06-27 08:21] LABS: Alanine Aminotransferase 30 U/L (6-35); Albumin Level 3.5 g/dL (3.5-5.1); Alkaline Phosphatase 73 U/L (38-126); Anion Gap 1 mmol/L (4-12); Aspartate Amino Transferase 26 U/L (14-36); Bilirubin,Total 0.4 mg/dL (0.2-1.3); Blood Urea Nitrogen 9 mg/dL (7-17); Calcium 8.8 mg/dL (8.4-10.2); Carbon Dioxide 32 mmol/L (22-30); Chloride 104 mmol/L (98-107); Cholesterol 215 mg/dL (0-200); Estimated Glomerular Filt Rate > 60; Glucose 99 mg/dL (65-110); HDL Direct 84 mg/dL; Potassium 3.7 mmol/L (3.4-5.0); Sodium 137 mmol/L (137-145); Triglycerides 79 mg/dL (<150)
[2024-06-27 08:32] LABS: LDL Cholesterol Direct 91 mg/dL
[2024-06-27 08:55] LABS: Hemoglobin A1C 6.7 % (<5.7)
[2024-06-27 11:33] LABS: Vitamin D 25 Hydroxy 54.2 ng/mL
[2024-06-27 13:23] LABS: Free T4 Free Thyroxine Reflex 0.98 ng/dL (0.78-2.19)
[2024-06-27 16:09] LABS: Total Triiodothyronine (T3) 1.43 NG/ML (0.97-1.69)
== END 2024-06-27 07:09 | disposition home or self-care (01) ==
PROVIDERS: PCP Internal Medicine; Visit Provider Internal Medicine
DX: E11.9 Type 2 diabetes mellitus without complications (principal); E78.5 Hyperlipidemia, unspecified; E55.9 Vitamin D deficiency, unspecified
CPT/HCPCS: 36415; 80053; 80061; 82306; 83036; 84439; 84443; 84480; 85025

== ENCOUNTER 2024-09-29 16:13 | Outpatient (CLI) | payer MEDICARE, SELFPAY ==
--- NOTE | ~2024-09-29 | US_ITS ---
EXAMINATION: US thyroid DATE: 09/29/2024 16:53 INDICATION: Hypothyroidism TECHNIQUE: Multiple ultrasound images of the thyroid were obtained. COMPARISON: None. FINDINGS: The right thyroid lobe measures 3.8 x 1.2 x 1.7 cm. The left thyroid lobe measures 4.1 x 0.9 x 1.4 c m. Thyroid isthmus measures 2-3 mm in maximal thickness. 1.3 cm wider than tall rim calcified nodule with smooth margins in the right thyroid lobe 3 mm anechoic TI RADS 1 cystic nodule in the right thyr oid lobe (TI-RADS 4, moderately suspicious , FNA if >=1.5 cm, annual followup is >=1 cm). There is no rmal echotexture, echogenicity and vascular flow throughout the remainder of the thyroid gland. IMPRESSION: 1. 1.3 cm TI RADS 4, rim calcified right thyroid nodule for which annual ultrasound follow-up is mohit mmended. Reviewed, dictated and finalized at location A. IMPRESSION: 1. 1.3 cm TI RADS 4, rim calcified right thyroid nodule for which annual ultras ound follow-up is recommended.
--- OUTSIDE RECORDS SUMMARY | 2024-09-29 16:18 | XMS_ITS | Clinical Summary ---
Author Organization [facility] Address [address] [place] [address] Care Team Providers [employer] Membership Sales Agent Name Role Phone Shadia Lemus MD Unavailable [phone] Jessica Tang DO Primary Care Provi cathleen Source Comments [facility],non-owned Affiliates and Associated Physician Practices is amultiple site organization consisting of ambulatory clinics and hospital sitesin [place], [place], [place] and [place]. This disclosure is being madepursuant to the Care Everywhere program and may not contain all information available regarding this patient. Last updated 17.[facility] Allergies Active Allergy Reactions Criticality Noted Date Comments Aspirin Rash Medium 07/03/2016 Nsaids Other 02/14/2008 Pt had gastric bypass surgery, should not take oral NSAIDS. Tetracycline Swelling 12/18/2005 face swells, tongue swells Medications * Be aware that medications may not be up to date on this document. Alwaysverify current medications with the patient. pantoprazole EC (PROTONIX) 20 MG tablet Take 20 mg by mouth once daily Active Cyanocobalamin (VITAMIN B-12) 50 MCG Take by mouth once daily Active Ascorbic Acid (VITAMIN C) 500 MG Take by mouth once daily Active DULoxetine (CYMBALTA) 60 MG capsule Take 1 (one) capsule by mouth once daily 30 capsule 1 Active LEVEMIR FLEXTOUCH pen Inject 6 (six) Units subcutaneously once daily 1 Pen 1 Active liraglutide (VICTOZA) 18 MG/3ML penIndications :Type 2 Diabetes Mellitus Inject 1.2 mg subcutaneously once daily Reasons: Type 2 Diabetes 2 Pen 1 Active metFORMIN (GLUCOPHAGE) 1000 MG tablet Take 1 (one) tablet by mouth 2 times daily with morning and evening meal 60 tablet 1 Active atorvastatin (LIPITOR) 40 MG tablet Take 1 (one) tablet by mouth at bedtime 30 tablet 1 Active lisinopril (PRINIVIL; ZESTRIL) 10 MG tabletIndicati ons:Hypertensi on Take 1 (one) tablet by mouth once daily Reasons: High Blood Pressure Disorder 30 tablet 1 Active REXULTI 1 MG tablet Take 1 (one) tablet by mouth once daily 30 tablet 1 Active phenazopyridin e (PYRIDIUM) 200 MG tablet Take 1 (one) tablet by mouth 3 times daily as needed 25 tablet 1 Active traMADol (ULTRAM) 50 MG tablet Take 1 (one) tablet by mouth every 6 hours as needed for Pain 12 tablet 2 Active Active Problems Problem Noted Date Diagnosed Date Hyperglycemia 08/31/2020 Abdominal pain 07/06/2020 Hypotension 11/23/2018 Uncontrolled type 2 diabetes mellitus with hyper glycemia 11/18/2018 Other pulmonary embolism without acute cor pulmo nale 01/04/2018 Syncope 03/19/2017 Head injury 03/19/2017 Medically noncompliant Uncontrolled diabetes mellitus Resolved Problems Problem Noted Date Diagnosed Date Resolved Date Dehydration 11/23/2018 12/07/2018 Dizziness 11/18/2018 11/19/2018 Immunizations Immunization Administration Dates Next Due Mansi Hunch primary monoval ent 12+ yr 0.3mL Purple cap 05/18/2020,04/24/2020 Family History Medical History Relation Name Comments Suicide Father [place] Mother Cancer - Breast Neg Hx Relation [...] Average Number of Drinks Not on file 01/19/2 022 Frequency of Binge Drinking Not on file 03/23 Comments No Sex and Gender Information Value Date Recorded Sex Assigned at Not on file Legal Sex Female 5:25 PM CDT Gender Identity Not on file Sexual Orientation Not on file Last Filed Vital Signs Vital Sign Reading Time Taken Comments Blood Pressure 142/94 04/10/2021 8:10 AM PIPELINE INTEGRITY ENGINEER Pulse 107 04/10/2021 8:10 AM PIPELINE INTEGRITY ENGINEER Temperature 36.8 C (98.3 F) 04/10/2021 8:10 AM PIPELINE INTEGRITY ENGINEER Respiratory Rate 16 04/10/2021 8:10 AM PIPELINE INTEGRITY ENGINEER Oxygen Saturation 100% 04/10/2021 8:10 AM PIPELINE INTEGRITY ENGINEER Inhaled Oxygen Concentration - - Weight 72.6 kg (160 lb) 04/10/2021 8:10 AM PIPELINE INTEGRITY ENGINEER Height 162.6 cm (5' 4) 04/10/2021 8:10 AM PIPELINE INTEGRITY ENGINEER Body Mass Index 27.46 04/10/2021 8:10 AM PIPELINE INTEGRITY ENGINEER Plan of Treatment Health Maintenance Due Date [...] - Risk 60-74 years 1-dose series) 2013 DIABETES-FOOT EXAM WITH MONOFILAMENT 01/22/2020 01/21/2019 DIABETES-HGB A1C 12/02/2020 09/01/2020, , 02/07/2020, Additional history exists DIABETES-SERUM CREATININE 09/26/20212020, 09/01/2020, 08/31/2020, Additional history exists MAMMOGRAM 05/24/2022 05/24/2020, 04/23, 08/13/2017 COVID-19 VACCINE ( season) 2023 04/04/2021, 05/18/2020, 04/24/2020 DEPRESSION SCREENING 03/23/2024 DIABETES - URINE PROTEIN SCREENING 03/23/2024 INFLUENZA VACCINE (Season Ended) 2024 12/16/2017, 01/22/2017, [...] MAMMO BILAT DIAGNOSTIC Routine 05/24/2020 8:30 AM PIPELINE INTEGRITY ENGINEER Abnormal mammogram DEXA BONE DENSITY AXIAL SKELETON Routine 05/10/2019 8:13 AM PIPELINE INTEGRITY ENGINEER Screening for osteoporosis from Last 3 Months [...] >60 mL/min/1.7 3m2 09/26/2020 7:52 PM CDT [facility] eGFR by MDRD 50(L) >60 mL/min/1.7 3m2 09/26/2020 7:52 PM CDT [facility] Blood BLOOD SPECIMEN / Unknown Venipuncture / Unknown 09/26/2020 7:16 PM CDT 09/26/2020 7:25 PM CDT us Ankita Pena MEDICAL PRACTICE ADMINISTRATOR-[employer] POLICE OFFICER LAB - CHEMISTRY ORDERA BLES Final Result -[facility] [address] [place] [address] * (ABNORMAL) HEMOGLOBIN A1C (09/01/2020 5:21 AM CDT) Hemoglobin A1c >14.0(H) 4.2 - 5.6 % 09/01/2020 5:37 AM CDT [facility] Estimated Average Glucose 09/01/2020 5:37 AM CDT [facility] Comment:Not Calculated Blood BLOOD SPECIMEN / Unknown Lab Venipuncture / Unknown 09/01/2020 5:21 AM CDT 09/01/2020 5:25 AM CDT Narrative [facility] - 09/01/2020 5:37 AM CDT The following cutoff levels are recommended by [place] [employer]. A1c > 6.5% : considered [...] hemoglobin (HbF) exceeds 5% in the specimen. us Leo Rivera PA-C LAB - CHEMISTRY ORDERABLES Fin al Result [facility] [address] [address] * (ABNORMAL) MAMMO BILAT DIAGNOSTIC (05/24/2020 8:30 AM PIPELINE INTEGRITY ENGINEER) Anatomical Region Laterality Modality Breast Bilateral Mammography 05/24/2020 9:49 AM PIPELINE INTEGRITY ENGINEER Narrative 05/24/2020 9:50 AM PIPELINE INTEGRITY ENGINEER Breast composition: Heterogeneously dense, which can obscure [...] Trice Reynolds on 05/24/2020 at 9:50 AM us Kimmy Loja MD MAMMO ORDERABLES Final Result * DEXA BONE DENSITY AXIAL SKELETON (05/10/2019 8:13 AM PIPELINE INTEGRITY ENGINEER) Anatomical Region Laterality Modality Mammography 05/10/2019 8:20 AM PIPELINE INTEGRITY ENGINEER Narrative 05/10/2019 8:27 AM PIPELINE INTEGRITY ENGINEER Bone density study (DEXA): History: Osteoporosis screening, postmenopausal, thyroid medication. Current study: 05/10/2019. Location: [place]. LUMBAR SPINE (L1-L4): Bone mineral density (g/cm2): [...] to -2.5 Osteoporosis = -2.5 and below [facility]: [employer] [facility]: [employer] [facility]: [employer] [facility]: [employer] A Reading Radiologist: Jerrod Campbell MD on 05/10/2019 at 8:27 AM Procedure Note Jerrod Campbell MD - 05/10/2019 Bone density study (DEXA): History: Osteoporosis screening, postmenopausal, thyroid medication. Current study: 05/10/2019. Location: [place]. LUMBAR SPINE (L1-L4): Bone mineral density (g/cm2): [...] to -2.5 Osteoporosis = -2.5 and below [facility]: [employer] [facility]: [employer] [facility]: [employer] [facility]: [employer] A Reading Radiologist: Jerrod Campbell MD on 05/10/2019 at 8:27 AM Shirley Webber MD DEXA ORDERABLES Final Res ult from Last 3 Months or Most Recently Relevant to Health Maintenance Insurance MANAGED MEDICARE [facility] [place] [place] Advance Directives * Full Code (Latest Code [...] 11:43 PM 07/04/2016 6:28 PM Care Teams [employer] Membership Sales Agent Relationship Specialty Start Date End Date Jessica Tang DO [address] [place] [address] PCP - General Family Medicine 10/10/18 Shadia Lemus MD [address] [place] [address] Motor Analyst Pulmonary Disease 09/30/17
--- OUTSIDE RECORDS SUMMARY | 2024-09-29 16:19 | XMS_ITS | Data Portability ---
Author Organization [facility] Address [address] [place] [address] Assessment Encounter Date Assessment Date Assessment LastModified [...] Time 3 Date of Last Mammogram completed [facility] 11/18/2022 18:24:17 3 Most Recent Bone Density completed [facility] 11/18/2022 18:24:35 Gastric bypass for obesity completed [facility] 11/18/2022 18:27:22 Imaging Results None [...] Not Available Not Available FreeStyle Santi 2 Wolf USE DIRECTED 11/18 completed Not Available Not Available Not Available Ozempic 0.25 mg or 0.5 mg (2 mg/3 mL) subcutaneou s pen injector INJECT 0.25 MG UNDER THE SKIN ONCE A WEEK AT DINNER active Not Available Not Available No t Available Vitals Date Recorded Body height Body mass index (BMI) Body weight Systolic And Diastolic Provider Name and Address Organization Details Last Updated DateTime 11/18/2022 162.56 cm 22.8 kg/m2 43206.79 g 151/90 mm[Hg] Luli Kumari [facility] 11/18/2022 18:22:07 Social History Question Answer Notes LastModified by Organizat ion Details LastModified Time Tobacco Smoking Status Never Smoker Luli Kumari null, [facility] 11/18/2022 18:27:13 In The 14 Days Before Symptom Onset, [...] For COVID-19? No Information not available 11/18/2022 Sex: Unknown Functional Status Question Answer Note LastModified by Organizat ion Details LastModified Time Do you use any illicit or recreational drugs? No Information not available 11/18/2022 What is your level of alcohol consumption? None Information not available 11/18/2022 Mental Status None recorded. Family History Relationship Description Onset Age of this Age Resolved Age Notes LastModified by Organization Details LastModified Time Mother Diabetes mellitus Not available 2022 18:26:44 Mother Hypertensive disorder Not available 2022 18:26:56 Sister Diabetes mellitus Not available 2022 18:26:45 Brother Diabetes mellitus Not available 2022 18:26:45 Medical History Condition Response Other N Blood Transfusion N Dermatologic Disorders N Gestational Diabetes N Anxiety Disorder N Autoimmune disease N Arthritis N Polyps N Infertility N Acid Reflux (GERD) N Cancer N Varicosities N Stroke N Neurologic/Epilepsy N Fibromyalgia N Headaches N Kidney Disease N Heart Problems N Kidney or Bladder Problems N Eating Disorder N Art (IVF or FET) N Hepatitis/Liver Disease N No Past Medical History N Urinary Tract Infection N Asthma N Trauma/Violence N Thrombophilias N Allergies (Food, seasonal, environmental ) N Breast Cancer N Drug/Latex Allergies/Reactions N Lung Disease N Defects or Inherited Disease N Breast Problem N Hematologic disorders N Anesthesia Complications N History of STI N Deep Vein Thrombosis N Polycystic ovary syndrome N History of abnormal pap N Endometriosis N High Cholesterol Y Thyroid Problems N GI Problems N Anemia Y Psychiatric Illness N Ovarian Cancer N Diabetes Y Pulmonary (TB, Asthma) N Eczema N Abuse/Domestic Violence N Depression/ depression N Heart Disease N Pre-Eclampsia N Hypertension Y Osteoporosis N Gynecological History Statement/Question Response Date of [...] SNOMED-CT Code Diagnosis ICD10 Code Diagnosis Note [id number] Yumiko Dye [facility] [address] [address] 11/18/2022 17:53:32 11/19/2022 10:48:42 Gynecologic examination 61124425 Z01.419 Take Calcium with Vitamin D 12-1500mg daily. Do monthly self breast exams. It is advised to get annual flu shot in the fall and she could obtain at [facility] or [facility] clinic. If you haven't received the Tdap [...] return more than every 2yrs unless having rn supplemental related issues.Ple ase visit PCP for BP check--no sx's, very stressful day. Exam wnl Health Concerns Section Related Observation LastModified by Organization Detai ls LastModified Time None Recorded Concern Status LastModified by Organization Details LastModified Time None Recorded Advance Directives Directive None Recorded Payers Insurance Date Sequence Insurance Name Policy Number Policy Jefferson Covered Member ID Jefferson Member ID Guarantor Name 11/18/2022 1 [facility] (MEDICARE REPLACEMENT/A DVANTAGE - PPO) [id number] Cindi Noel [id number] Cindi Noel Notes Date Note Type Note Provider Name and Address Organization Details Recorded Time 11/18/2022 text/html 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 11/18/2022 19:03:23 OBGyn Episode Ob Episode Information Episode Created Date Number of Fetuses Patient Bloodtype Patient rh Status Prepregnancy Weight lbs Domestic Partner Domestic Partner Phone Father Name Bell Captain Status 11/19/19 23 1 CLOSED Fetus Data First Name Last Name Admitted to NICU Weight (g) Sex Living Outcome Pediatric Complications Fetus ID Race Codes Race Delivery Type 2919.77 1704 Full Term 85199 Vaginal Delivery Manuel Calculation Initial Manuel Date [...] Domestic Partner Domestic Partner Phone Father Name Bell Captain Status 11/19/19 1 CLOSED Fetus Data First Name Last Name Admitted to NICU Weight (g) Sex Living Outcome Pediatric Complications Fetus ID Race Codes Race Delivery Type 3316.66 4704 Full Term 42959 Vaginal Delivery Manuel Calculation Initial Manuel Date [...] Domestic Partner Domestic Partner Phone Father Name Bell Captain Status 11/19/19 23 1 CLOSED Fetus Data First Name Last Name Admitted to NICU Weight (g) Sex Living Outcome Pediatric Complications Fetus ID Race Codes Race Delivery Type 3742.13 4 Full Term 06180 Vaginal Delivery Manuel Calculation Initial Manuel Date [...] Domestic Partner Domestic Partner Phone Father Name Bell Captain Status 11/19/19 23 1 CLOSED Fetus Data First Name Last Name Admitted to NICU Weight (g) Sex Living Outcome Pediatric Complications Fetus ID Race Codes Race Delivery Type 3316.66 4704 Full Term 14029 Vaginal Delivery Manuel Calculation Initial Manuel Date [...]
--- OUTSIDE RECORDS SUMMARY | 2024-09-29 16:19 | XMS_ITS | Clinical Summary ---
Author Organization [facility] on Address [address] [place] [address] Care Team Providers Care Rn Visiting Name Role Phone Oh Esquivel MD Primary [...] Encounters Date Type Department Care Team Description 09/13/2024 External Device Data [facility] ABSTRACTION Provider, Abstract 09/07/2024 External Device Data [facility]STRACTION Provider, Abstract 09/06/2024 External Device Data [facility] ABSTRACTION Provider, Abstract 08/23/2024 Orders Only [facility] Oncology and Hematology - [place] [address] [place] [phone] Casey Boss MD Iron deficiency anemia, unspecified iron deficiency anemia type (Primary Dx) 08/10/2024 External Device Data [facility] ABSTRACTION Provider, Abstract 08/09/2024 External Device Data [facility] ABSTRACTION Provider, Abstract [...] 10:14 AM CDT Height 162.6 cm (5' 4) 11/11/2023 10:12 AM CDT Body Mass Index 19.91 11/11/2023 10:12 AM CDT Plan of Treatment Upcoming Encounters Date Type Department Care Team (Late st Contact Info) Description 12/26/2024 11:45 AM CDT Office Visit [facility] On[facility]ology - [place] [address] [facility] [address] [place] [address] Casey Boss MD [address] [facility] [address] [place] [address] Health Maintenance Due Date Last Done Comments [...] 05/25/19 21, 05/24/2020, 01/04/2020, Additional history exists COVID-19 Vaccine (3 - 2023-2 5 season) 2023 05/18/2020, 04/24/2020 INFLUENZA VACCINE (#1) 2024 4, 12/15/2014, 12/24/2011, Additional history exists PNEUMOCOCCAL VACCINE 50+ YEA RS (3 of 3 - PCV20 or PCV21) 11/20/2026 11/20/2021, 06/21/2013, 12/24/2011 OSTEOPOROSIS SCREENING 11/15/2027 3, 05/10/2019, 05/10/2019, Additional history exists Insurance [place] Member Subscriber Plan / Payer (Ef fective 2019-Present) Name:Cindi Noel Relation to Subscriber:Self Name:Cindi Noel Payer ID:[id number] Group ID:Not on file Type:Medicaid Address: [address] DUAL COMPLETE [facility] HMO [facility] [id number] Care Teams Rn Visiting Relationship Specialty Start Date End Date Oh Esquivel MD PCP - General Internal Medicine 11/11/23
--- OUTSIDE RECORDS SUMMARY | 2024-09-29 16:19 | XMS_ITS | Data Portability ---
Author Organization [place] [facility] [employer], Main Office Address [address] [place] [address] Care Team Providers Care Urology Nurse Name Role Phone YVES MICHELLEDEVORA Primary Care Provider LANCE BOSS Branch Sales And Service Representative ERIN WINN Level Vial Marker [facility] Firer Automatic Stoker Assessment Encounter Date Assessment Date Assessment LastModified by Organization Details LastModified Time 05/14/2023 05/14/2023 06/27/2022: VIT D 29.3 TSH [...] 106 H/H 10.6/33.7 Not available 06/19/2024 17:54:33 08/18/2024 08/18/2024 06/27/2022: VIT D 29.3 TSH 5.500H A1C [...] Hepatitis panel: Neg Gluc 106 H/H 10.6/33.7 06/27/2024: A1C 6.7 TP 6.0 Chol 215 TSH 6.220H, FT4 0.98 H/H 10.5/33.5 [email or web address] Not available 08/18/2024 10:03:25 Plan of Treatment Reminders Order Date Submit Date Provider Last Modified By Organization Details Last Modified Time Details Appointments New Patient 2024 02:45P M Festus Moscoso DPM Not available Not available Not available Follow Up 2024 03:45P M Anna Kelley PMHNP Not available Not available Not available Any 2024 03:00P M Oh hinds MD Not available Not available Not available Lab lipid panel, serum [address] (Lab), [address] [place], [address], 08/18/2024 10:16:58 CBC w/ auto diff [address] (Lab), [address] [place], [address], 08/18/2024 10:16:58 CMP, serum or plasma [address] (Lab), [address] [place], [address], 08/18/2024 10:16:59 TSH, serum or plasma [address] (Lab), [address] [place], [address], 08/18/2024 10:16:59 vitamin D, 25-hydrox y, total, serum [address] (Lab), [address] [place], [address], 08/18/2024 10:17:00 glycohemo globin, total, blood [address] (Lab), [address] [place], [address], 08/18/2024 10:16:59 microalbu min, urine [address] (Lab), [address] [place], [address], 08/18/2024 10:17:00 lipid panel, serum 2024 025 [facility] (Lab), [address] [place], [address], 06/27/2024 10:52:26 CBC w/ auto diff 2024 025 [facility] (Lab), [address] [place], [address], 06/27/2024 10:52:27 CMP, serum or plasma 2024 025 [facility] (Lab), [address] [place], [address], 06/27/2024 10:52:26 TSH, serum or plasma 2024 025 [facility] (Lab), [address] [place], [address], 06/27/2024 16:46:37 vitamin D, 25-hydrox y, total, serum 2024 025 [facility] (Lab), [address] [place], [address], 06/27/2024 16:49:07 glycohemo globin, total, blood 2024 025 [facility] (Lab), [address] [place], [address], 06/27/2024 12:58:23 microalbu min, urine [address] (Lab), [address] [place], [address], 06/23/2024 09:40:03 hepatitis panel (A+B+C), acute, serum 2023 024 [facility] (Lab), [address] [place], [address], 01/14/2024 13:15:03 lipid panel, serum 2023 024 [facility] (Lab), [address] [place], [address], 01/14/2024 13:01:00 CBC w/ auto diff 2023 024 [facility] (Lab), [address] [place], [address], 01/14/2024 12:27:28 T4, free, serum 2023 024 [facility] (Lab), [address] [place], [address], 01/14/2024 13:05:35 CMP, serum or plasma 2023 024 [facility] (Lab), [address] [place], [address], 01/14/2024 13:01:16 TSH, serum or plasma 2023 024 [facility] (Lab), [address] [place], [address], 01/14/2024 13:07:27 vitamin D, 25-hydrox y, total, serum [email or web address] [place] [address] (Lab), [address] [place], [address], 07/14/2024 09:32:20 glycohemo globin, total, blood 2023 024 [facility] (Lab), [address] [place], [address], 01/14/2024 14:38:11 microalbu min, urine 2023 024 [facility] (Lab), [address] [place], [address], 01/14/2024 13:13:57 lipid panel, serum 2023 024 [facility] (Lab), [address] [place], [address], 09/18/2023 11:54:40 CBC w/ auto diff 2023 024 [facility] (Lab), [address] [place], [address], 09/18/2023 11:42:18 T4, free, serum 2023 024 [facility] (Lab), [address] [place], [address], 09/18/2023 12:11:54 CMP, serum or plasma 2023 024 [facility] (Lab), [address] [place], [address], 09/18/2023 11:54:44 TSH, serum or plasma 2023 024 [facility] (Lab), [address] [place], [address], 09/18/2023 12:25:04 vitamin D, 25-hydrox y, total, serum [email or web address] [place] [address] (Lab), [address] [place], [address], 03/17/2024 10:24:30 glycohemo globin, total, blood 2023 024 [facility] (Lab), [address] [place], [address], 09/18/2023 12:45:07 microalbu min, urine 2023 024 [facility] (Lab), [address] [place], [address], 09/18/2023 12:02:17 hepatitis panel (A+B+C), acute, serum 2023 024 [facility] (Lab), [address] [place], [address], 09/18/2023 12:26:05 lipid panel, serum 2023 024 [facility] (Lab), [address] [place], [address], 05/15/2023 12:01:18 CBC w/ auto diff 2023 024 [facility] (Lab), [address] [place], [address], 05/15/2023 11:17:19 T4, free, serum 2023 024 [facility] (Lab), [address] [place], [address], 05/15/2023 12:33:19 CMP, serum or plasma 2023 024 [facility] (Lab), [address] [place], [address], 05/15/2023 12:01:29 TSH, serum or plasma 2023 024 [facility] (Lab), [address] [place], [address], 05/15/2023 12:33:34 vitamin D, 25-hydrox y, total, serum [address] (Lab), [address] [place], [address], 11/10/2023 17:15:40 glycohemo globin, total, blood 2023 024 [facility] (Lab), [address] [place], [address], 05/15/2023 12:15:18 microalbu min, urine 2023 024 [facility] (Lab), [address] [place], [address], 05/15/2023 12:02:44 hepatitis panel (A+B+C), acute, serum [address] (Lab), [address] [place], [address], 11/10/2023 17:15:40 Referral gynecolog ist referral - Please call patient to schedule an appointme nt. Thank you. 2024 025 ATHJAX Gómez, [address], [place], [address], Ph [phone] 08/19/2024 14:55:15 hematolog ist referral - Please call patient to schedule an appointme nt. Thank you. 2024 025 TRAY Boss MD, [address], [place], [address], 08/19/2024 15:25:18 cardiolog ist referral - Please call patient to schedule an appointme nt. Thank you. 2024 025 [place], [address] [address], [address], [place], [address], 08/19/2024 16:10:35 podiatris t referral - Please call patient to schedule an appointme nt. Thank you. 2024 025 GILDARDO Moscoso DPM, [address] [facility], [facility] [address], [place], [address], 08/28/2024 17:08:11 gynecolog ist referral - Please call patient to schedule an appointme nt. Thank you. 2024 025 [email or web address] Miriam Gómez, [address] [facility], [place], [address], Ph [phone] 09/21/2024 12:27:12 hematolog ist referral - Please call patient to schedule an appointme nt. Thank you. 2024 025 [email or web address] Lance Boss MD, [address], [place], [address], 09/27/2024 08:35:20 psychiatr ist referral - Please call patient to schedule an appointme nt. Thank you. 2024 025 [email or web address] Anna Kelley Pmhnp, [address] [facility] [address], [place], [address], 09/21/2024 12:27:13 cardiolog ist referral - Please call patient to schedule an appointme nt. Thank you. 2024 025 [place], [address] [address], [address], [place], [address], 09/27/2024 08:35:19 podiatris t referral - Please call patient to schedule an appointme nt. Thank you. 2024 025 [email or web address] Festus Moscoso DPM, [address] [facility], [address], [place], [address], 09/21/2024 12:27:11 gynecolog ist referral - Please call patient to schedule. 2023 024 [email or web address] Miriam Gómez, [address], [facility] [address], [place], [address], Ph [phone] 03/21/2024 13:26:20 psychiatr ist referral 2023 024 [email or web address] Anna Espinalt Pmhnp, [address], [address], 01/14/2024 16:27:13 cardiolog ist referral - Please call patient to schedule. 2023 024 [email or web address] Zoya Ly, [address] [address], [place], [address], 03/21/2024 13:24:59 hematolog ist referral 2023 024 [email or web address] Lance Boss MD, [address], [place], [address], 01/14/2024 16:24:29 podiatris t referral 2023 024 [email or web address] Festus Moscoso DPM, [address] [facility], [address], [place], [address], 07/18/2024 14:04:43 gynecolog ist referral 2023 024 [email or web address] Miriam Gómez, [address], [facility] [address], [place], [address], Ph [phone] 03/21/2024 13:26:15 psychiatr ist referral 2023 024 [email or web address] Anna Kelley Pmhnp, [address], [address], 04/18/2024 09:59:38 cardiolog ist referral 2023 024 [email or web address] Zoya Ly, [address] [address], [address], [address], 03/21/2024 13:24:55 podiatris t referral 2023 024 [email or web address] Festus Moscoso DPM, [address], [address], [place], [address], 03/21/2024 13:26:34 gynecolog ist referral 2023 024 [email or web address] Miriam Gómez, [address]22 [facility], [address], [place], [address], Ph [phone] 11/10/2023 17:16:36 cardiolog ist referral 2023 024 [email or web address] Ly, [address] [address], [address], [address], 12/10/2023 08:47:33 podiatris t referral 2023 024 [email or web address] Festus Moscoso DPM, [address], [address], [place], [address], 11/10/2023 17:16:35 Procedures colonosco py screening (PROC) 2023 024 [email or web address] Shirley Ordoñez MD, [address], [address], [place], [address], 11/10/2023 17:14:40 Surgeries None recorded. Imaging MAMMO, screening , digital, bilateral - Please call patient to schedule. [email or web address], [address], [place], [address], 08/19/2024 10:48:02 US, thyroid - Please call patient to schedule. [address], [address], [place], [address], 09/21/2024 18:26:19 MAMMO, screening , digital, bilateral - Please call patient to schedule. [address], [address], [place], [address], 09/21/2024 18:26:19 MAMMO, screening , digital, bilateral [address] ([facility]), [address] [place], [address], 01/14/2024 12:44:53 MAMMO, screening , digital, bilateral [address] ([facility]), [address] [place], [address], 03/21/2024 13:23:56 DEXA, axial skeleton [address] ([facility]), [address] [place], [address], 03/21/2024 13:23:06 MAMMO, screening , digital, bilateral [address] ([facility]), [address] [place], [address], 11/10/2023 15:38:44 DEXA, axial skeleton [address] ([facility]), [address] [place], [address], 03/21/2024 13:23:14 US, liver [address] ([facility]), [address] [place], [address], 11/30/2023 09:21:58 Medication Orders cyclobenz aprine 10 mg tablet 2024 025 [facility] #[id number], [address] [place], [place], [id number], 08/18/2024 10:16:05 lisinopri l 10 mg tablet 2023 024 [facility][id number], [address] [place], [place], [id number], 05/14/2023 17:17:34 Ozempic 0.25 mg or 0.5 mg (2 mg/3 mL) subcutane ous pen injector 2023 024 [email or web address] [id number], [address] [place], [place], [id number], 08/18/2024 10:17:31 Patient TargetsNo targets recorded. Patient Instructions Encounter Date Encounter Id Patient Instructions Last Modified By Organization Details Last Modified Time 05/14/2023 [id number] diabetic eye exam* [email or web address] Not avail able 11/10/2023 17:15:23 01/14/2024 [id number] dementia rating scale-2* [email or web address] Not available 01/15/2024 20:22:06 alcohol misuse* [email or web address] 2 Not available 01/15/2024 20:22:06 depression screening* [email or web address] 2 Not available 01/15/2024 20:22:06 multi-dimensiona l health assessment questionnaire* [email or web address] 2 Not available 01/15/2024 20:22:06 advance directiv es: care instructions [email or web address] 2 Not available 01/15/2024 20:22:06 advance care planning: care instructions [email or web address] Not available 01/15/2024 20:22:06 [place] Advance Directives [email or web address] Not available 01/15/2024 20:22:06 diabetic eye exam* [email or web address] Not avail able 07/12/2024 08:08:50 [facility] Plan and Screening Recommendations Advance Directives - [...] Appropriate Physical activity: Appropriate physical activity Nutrition: Average Refer to attached handout Heart-Healthy Diet: After Your Visit Fall Risk (screened today): Low Refer to attached handout Preventing Falls: After your Visit Vaccines Pneumococcal: No further needed Influenza: Given today in office. Chronic Disease Risks Stroke: Intermediate Risk Follow Heart healthy Diet. Heart Attack: Intermediate Risk Follow Heart healthy Diet. Clogging of the Arteries: Intermediate Risk Follow Heart healthy Diet. Diabetes: High Risk Active diagnosis, Continue current treatment plan Secondary Prevention/Interven tion (detects treatable diseases before they may cause symptoms, disability, or ) Breast Cancer Screening with mammogram: Ordered Cervical/Uterine/Ov pedro Cancer Screening: Referral to char puller Osteoporosis Screening: Your next DEXA in: 1 year Date Screening Last Performed:2022 Colon Cancer Screening: Colonoscopy Date Screening Last Performed: 2022 Eye Disease Screening: Recommended today Dementia Risk: Low I have no recommendations Depression Screening: Negative [email or web address] Not available 01/14/2024 11:26:26 06/23/2024 [id number] diabetic eye exam* [email or web address] Not avail able 06/23/2024 09:40:03 08/18/2024 [id number] diabetic eye exam* [email or web address] Not avail able 08/18/2024 10:17:00 Reason for Referral Rehab Director Occupational Therapist Referral for Type 2 diabetes mellitus without complication Referring Physician: Oh Esquivel Internal Medicine, Encounter Date: 05/14/2023 Oral Communication Instructor Referral for Gy necologic examination Referring Physician: Oh Esquivel Internal Medicine, Encounter Date: 05/14/2023 Level Vial Marker Referral for Es sential hypertension Referring Physician: Rio Guillen Medicine, Encounter Date: 05/14/2023 Rehab Director Occupational Therapist Referral for Type 2 diabetes mellitus without complication Referring Physician: Oh Esquivel Internal [facility], Encounter Date: 09/17/2023 Oral Communication Instructor Referral for Gy necologic examination Referring Physician: Rio Guillen, Encounter Date: 09/17/2023 Level Vial Marker Referral for Es sential hypertension Referring Physician: Rio Guillen Medicine, Encounter Date: 09/17/2023 Psychiatrist Referral for Sc hizophrenia Referring Physician: Oh Esquivel Internal Medicine, Encounter Date: 09/17/2023 Rehab Director Occupational Therapist Referral for Type 2 diabetes mellitus without complication Referring Physician: Rio Guillen, Encounter Date: 01/14/2024 Oral Communication Instructor Referral for Gy necologic examination Please call patient to schedule. Referring Physician: Rio Guillen, Encounter Date: 01/14/2024 Level Vial Marker Referral for Es sential hypertension Please call patient to schedule. Referring Physician: Rio Guillen, Encounter Date: 01/14/2024 Psychiatrist Referral for Sc hizophrenia Referring Physician: Rio Guillen, Encounter Date: 01/14/2024 Referring Physician: Rio Guillen Medicine, Encounter Date: 01/14/2024 Rehab Director Occupational Therapist Referral for Type 2 diabetes mellitus without complication Please call patient to schedule an appointment. Thank you. Referring Physician: Rio Guillen, Encounter Date: 06/23/2024 Oral Communication Instructor Referral for Gy necologic examination Please call patient to schedule an appointment. Thank you. Referring Physician: Rio Guillen, Encounter Date: 06/23/2024 Level Vial Marker Referral for Es sential hypertension Please call patient to schedule an appointment. Thank you. Referring Physician: Oh Esquivel Internal Medicine, Encounter Date: 06/23/2024 Psychiatrist Referral for Sc hizophrenia Please call patient to schedule an appointment. Thank you. Referring Physician: Oh Esquivel Internal Medicine, Encounter Date: 06/23/2024 Please call patient to sched ule an appointment. Thank you. Referring Physician: Oh Esquivel Internal Medicine, Encounter Date: 06/23/2024 Rehab Director Occupational Therapist Referral for Type 2 diabetes mellitus without complication Please call patient to schedule an appointment. Thank you. Referring Physician: Oh Esquivel Internal Medicine, Encounter Date: 08/18/2024 Oral Communication Instructor Referral for Gy necologic examination Please call patient to schedule an appointment. Thank you. Referring Physician: Oh Esquivel Internal Medicine, Encounter Date: 08/18/2024 Level Vial Marker Referral for Es sential hypertension Please call patient to schedule an appointment. Thank you. Referring Physician: Oh Esquivel Internal Medicine, Encounter Date: 08/18/2024 Please call patient to sched ule an appointment. Thank you. Referring Physician: Oh Esquivel Internal Medicine, Encounter Date: 08/18/2024 Results Created Date Observation Date Name Description Value Unit Range Abnormal Flag Note LastModifiedBy Organization Detail LastModifiedTime 05/15/19 24 05/15/2023 CBC/C OMPLE TE BLD COUNT W/DIF F white blood cells 5.4 x10'3 /uL 4.2-10 .8 Not Available [facility] (Lab) [address] [place], [address], 05/15/2023 11:17:18 05/15/19 24 05/15/2023 CBC/C OMPLE TE BLD COUNT W/DIF F red blood cells 3.93 x10'6 /uL 3.80-5 .20 Not Available [facility] (Lab) [address] [place], [address], 05/15/2023 11:17:18 05/15/19 24 05/15/2023 CBC/C OMPLE TE BLD COUNT W/DIF F hemoglobin 11.1 g/dL 12.0-1 5.6 low Not Available [facility] (Lab) [address] [place], [address], 05/15/2023 11:17:18 05/15/19 24 05/15/2023 CBC/C OMPLE TE BLD COUNT W/DIF F hematocrit 35.1 % 35.7-4 5.7 low Not Available [facility] (Lab) [address] [place], [address], 05/15/2023 11:17:18 05/15/19 24 05/15/2023 CBC/C OMPLE TE BLD COUNT W/DIF F mean red cell volume 89.3 fL 82.0-9 9.0 Not Available [facility] (Lab) [address] [place], [address], 05/15/2023 11:17:18 05/15/19 24 05/15/2023 CBC/C OMPLE TE BLD COUNT W/DIF F mean red cell hemoglobin 28.2 pg 27.0-3 3.0 Not Available [facility] (Lab) [address] [place], [address], 05/15/2023 11:17:18 05/15/19 24 05/15/2023 CBC/C OMPLE TE BLD COUNT W/DIF F mean RBC HGB concentratio n 31.6 g/dL 31.0-3 6.0 Not Available [facility] (Lab) [address] [place], [address], 05/15/2023 11:17:18 05/15/19 24 05/15/2023 CBC/C OMPLE TE BLD COUNT W/DIF F red cell distribution width 14.1 % 11.8-1 5.5 Not Available [facility] (Lab) [address] [place], [address], 05/15/2023 11:17:18 05/15/19 24 05/15/2023 CBC/C OMPLE TE BLD COUNT W/DIF F platelets 332 x10'3 /uL 150-40 0 Not Available [facility] (Lab) [address] [place], [address], 05/15/2023 11:17:18 05/15/19 24 05/15/2023 CBC/C OMPLE TE BLD COUNT W/DIF F mean platelet volume 10.4 fL 9.0-12 .4 Not Available [facility] (Lab) [address] [place], [address], 05/15/2023 11:17:18 05/15/19 24 05/15/2023 CBC/C OMPLE TE BLD COUNT W/DIF F neutrophils 56.9 % 39.0-7 2.0 Not Available [facility] (Lab) [address] [place], [address], 05/15/2023 11:17:18 05/15/19 24 05/15/2023 CBC/C OMPLE TE BLD COUNT W/DIF F lymphocytes 35.8 % 16.0-4 7.0 Not Available [facility] (Lab) [address] [place], [address], 05/15/2023 11:17:18 05/15/19 24 05/15/2023 CBC/C OMPLE TE BLD COUNT W/DIF F monocytes 5.8 % 5.0-12 .0 Not Available [facility] (Lab) [address] [place], [address], 05/15/2023 11:17:18 05/15/19 24 05/15/2023 CBC/C OMPLE TE BLD COUNT W/DIF F eosinophils 0.7 % 1.0-7. 0 low Not Available [facility] (Lab) [address] [place], [address], 05/15/2023 11:17:18 05/15/19 24 05/15/2023 CBC/C OMPLE TE BLD COUNT W/DIF F basophils 0.6 % 0.0-2. 0 Not Available [facility] (Lab) [address] [place], [address], 05/15/2023 11:17:18 05/15/19 24 05/15/2023 CBC/C OMPLE TE BLD COUNT W/DIF F immature granulocytes 0.2 % 0.00-0 .50 Not Available [facility] (Lab) [address] [place], [address], 05/15/2023 11:17:18 05/15/19 24 05/15/2023 CBC/C OMPLE TE BLD COUNT W/DIF F neutrophils, absolute count 3.05 x10'3 /uL 1.5-8. 0 Not Available [facility] (Lab) [address] [place], [address], 05/15/2023 11:17:18 05/15/19 24 05/15/2023 CBC/C OMPLE TE BLD COUNT W/DIF F lymphocytes, absolute count 1.92 x10'3 /uL 1.07-3 .43 Not Available [facility] (Lab) [address] [place], [address], 05/15/2023 11:17:18 05/15/19 24 05/15/2023 CBC/C OMPLE TE BLD COUNT W/DIF F monocytes, absolute count 0.31 x10'3 /uL 0.29-0 .99 Not Available [facility] (Lab) [address] [place], [address], 05/15/2023 11:17:18 05/15/19 24 05/15/2023 CBC/C OMPLE TE BLD COUNT W/DIF F eosinophils, absolute count 0.04 x10'3 /uL 0.02-0 .53 Not Available [facility] (Lab) [address] [place], [address], 05/15/2023 11:17:18 05/15/19 24 05/15/2023 CBC/C OMPLE TE BLD COUNT W/DIF F basophils, absolute count 0.03 x10'3 /uL 0.01-0 .08 Not Available [facility] (Lab) [address] [place], [address], 05/15/2023 11:17:18 05/15/19 24 05/15/2023 CBC/C OMPLE TE BLD COUNT W/DIF F immature granulocytes ,absolute 0.01 x10'3 /uL 0.00-0 .05 Not Available [facility] (Lab) [address] [place], [address], 05/15/2023 11:17:18 05/15/19 24 05/15/2023 CBC/C OMPLE TE BLD COUNT W/DIF F nucleated red blood cells 0.0 % -0 Not Available [facility] (Lab) [address] [place], [address], 05/15/2023 11:17:18 05/15/19 24 05/15/2023 CBC/C OMPLE TE BLD COUNT W/DIF F NRBC# 0.00 x10'3 /uL Not Available [facility] (Lab) [address] [place], [address], 05/15/2023 11:17:18 05/15/19 24 05/15/2023 LIPID PANEL cholesterol 214 mg/dL 140-19 9 high NIH ADDISON NSUS RECOM MENDA TION FOR CASSIDY STERO L: ADULT CHILD LOW RISK: <200 <170 BORDE RLINE : <200- 239 ----- HIGH RISK: >240 >200 Not Available [facility] (Lab) [address] [place], [address], 05/15/2023 12:01:18 05/15/19 24 05/15/2023 LIPID PANEL triglyceride s 102 mg/dL 0-150 NIH ADDISON NSUS REPOR T RECOM MENDA TION FOR TRIGL YCERI JOSSELIN: ADULT CHILD LOW RISK: <150 ----- BODER LINE: 150-1 99 ----- HIGH RISK: >200 ----- Not Available [facility] (Lab) [address] [place], [address], 05/15/2023 12:01:18 05/15/19 24 05/15/2023 LIPID PANEL HDL cholesterol 96 mg/dL 40- Not Available [facility] (Lab) [address] [place], [address], 05/15/2023 12:01:18 05/15/19 24 05/15/2023 LIPID PANEL LDL cholesterol, calculated 98 mg/dL 0-130 NIH ADDISON NSUS REPOR T RECOM MENDA TIONS FOR LDL: ADULT CHILD LOW RISK <130 <110 (OPTI MAL LDL) <100 ----- MEHNAZ RLINE : 130-1 59 ----- HIGH RISK: >160 >130 A TRIGL YCERI DE RESUL T >400 INVAL IDATE S THE CALCU LATIO N FOR LDL FRACT IONAT ION - THE LDL RESUL T WILL NOT BE REPOR [place]. Not Available [facility] (Lab) [address] [place], [address], 05/15/2023 12:01:18 05/15/19 24 05/15/2023 COMPR EHENS RAVI METAB OLIC PANEL sodium 140 mmol/ L 137-14 5 Not Available [facility] (Lab) [address] [place], [address], 05/15/2023 12:01:29 05/15/19 24 05/15/2023 COMPR EHENS RAVI METAB OLIC PANEL potassium 4.1 mmol/ L 3.5-5. 1 Not Available [facility] (Lab) [address] [place], [address], 05/15/2023 12:01:29 05/15/19 24 05/15/2023 COMPR EHENS RAVI METAB OLIC PANEL chloride 105 mmol/ L 98-107 Not Available [facility] (Lab) [address] [place], [address], 05/15/2023 12:01:29 05/15/19 24 05/15/2023 COMPR EHENS RAVI METAB OLIC PANEL carbon dioxide 33 mmol/ L 22-30 high Not Available [facility] (Lab) [address] [facility] [place], [address], 05/15/2023 12:01:29 05/15/19 24 05/15/2023 COMPR EHENS RAVI METAB OLIC PANEL anion gap 6.1 mmol/ L 14-22 low Not Available [facility] (Lab) [address] [place], [address], 05/15/2023 12:01:29 05/15/19 24 05/15/2023 COMPR EHENS RAVI METAB OLIC PANEL glucose 127 mg/dL 70-99 high Not Available [facility] (Lab) [address] [place], [address], 05/15/2023 12:01:29 05/15/19 24 05/15/2023 COMPR EHENS RAVI METAB OLIC PANEL BUN 13 mg/dL 8-19 Not Available [facility] (Lab) [address] [place], [address], 05/15/2023 12:01:29 05/15/19 24 05/15/2023 COMPR EHENS RAVI METAB OLIC PANEL creatinine 0.87 mg/dL 0.66-1 .25 Not Available [facility] (Lab) [address] [place], [address], 05/15/2023 12:01:29 05/15/19 24 05/15/2023 COMPR EHENS RAVI METAB OLIC PANEL GFR >60 Refer ence Range : [place] ge GFR Healt hy Adult : >60 [...] calcu lator is avail able on the [facility] websi te: https :[email or web address].charito [email or web address]/pr connie nicole s/kdo qi/gf r_cal culat or Not Available [facility] (Lab) [address] [place], [address], 05/15/2023 12:01:29 05/15/19 24 05/15/2023 COMPR EHENS RAVI METAB OLIC PANEL alkaline phosphatase 97 U/L 38-126 Not Available [facility] (Lab) [address] [place], [address], 05/15/2023 12:01:29 05/15/19 24 05/15/2023 COMPR EHENS RAVI METAB OLIC PANEL alanine aminotransfe rase 24 U/L 0-35 Not Available [facility] (Lab) [address] [place], [address], 05/15/2023 12:01:29 05/15/19 24 05/15/2023 COMPR EHENS RAVI METAB OLIC PANEL aspartate aminotransfe rase 30 U/L 15-37 Not Available [facility] (Lab) [address] [place], [address], 05/15/2023 12:01:29 05/15/19 24 05/15/2023 COMPR EHENS RAVI METAB OLIC PANEL bilirubin, total 0.40 mg/dL 0.20-1 .30 Not Available [facility] (Lab) [address] [place], [address], 05/15/2023 12:01:29 05/15/19 24 05/15/2023 COMPR EHENS RAVI METAB OLIC PANEL calcium 9.7 mg/dL 8.4-10 .2 Not Available [facility] (Lab) [address] [place], [address], 05/15/2023 12:01:29 05/15/19 24 05/15/2023 COMPR EHENS RAVI METAB OLIC PANEL total protein 6.8 g/dL 6.3-8. 2 Not Available [facility] (Lab) [address] [place], [address], 05/15/2023 12:01:29 05/15/19 24 05/15/2023 COMPR EHENS RAVI METAB OLIC PANEL albumin 4.0 g/dL 3.0-4. 4 Not Available [facility] (Lab) [address] [place], [address], 05/15/2023 12:01:29 05/15/19 24 05/15/2023 COMPR EHENS RAVI METAB OLIC PANEL globulin 2.8 g/dL 2.6-4. 2 Not Available [facility] (Lab) [address] [place], [address], 05/15/2023 12:01:29 05/15/19 24 05/15/2023 COMPR EHENS RAVI METAB OLIC PANEL A/G ratio 1.4 ratio 1.0-2. 0 Not Available [facility] (Lab) [address] [place], [address], 05/15/2023 12:01:29 05/15/19 24 05/15/2023 MICRO ALBUM IN RANDO M URINE microalbumin , urine 7.0 mg/L 0.0-16 .6 Not Available [facility] (Lab) [address] [place], [address], 05/15/2023 12:02:44 05/15/19 24 05/15/2023 HEMOG LOBIN A1C HA1C 7.2 % 4.0-6. 0 high Diabe donna Scree aure Crite carmina: <5.7% Consi stent with absen ce of diabe donna 5.7-6 .4% Consi stent with incre ased risk for diabe donna (pred iabet es) >OR=6 .5% Consi stent with diabe donna REFER ENCE: Diabe donna Care 2016, 39(Navarrete ppl.1 ):s13 -s22 Not Available [facility] (Lab) [address] [place], [address], 05/15/2023 12:15:17 05/15/19 24 05/15/2023 T4 FREE free T4 0.83 NG/dL 0.78-2 .19 Not Available [facility] (Lab) [address] [place], [address], 05/15/2023 12:33:19 05/15/19 24 05/15/2023 TSH W/REF KAR FT4 TSH with reflex free T4 1.580 uIU/m L 0.465- 4.680 Not Available [facility] (Lab) [address] [place], [address], 05/15/2023 12:33:34 05/15/19 24 05/15/2023 VITAM IN D 25-HY DROXY vd25oh 19.6 NG/mL 30-100 low Vitam in D Statu s: Defic ient: <20 ng/mL Insuf ficie nt: 20-29 ng/mL Suffi cient : 30-10 0 ng/mL Not Available [facility] (Lab) [address] [place], [address], 05/15/2023 12:43:55 09/18/19 24 09/18/2023 CBC/C OMPLE TE BLD COUNT W/DIF F white blood cells 5.0 x10'3 /uL 4.2-10 .8 Not Available [facility] (Lab) [address] [place], [address], 09/18/2023 11:42:18 09/18/19 24 09/18/2023 CBC/C OMPLE TE BLD COUNT W/DIF F red blood cells 3.71 x10'6 /uL 3.80-5 .20 low Not Available [facility] (Lab) [address] [place], [address], 09/18/2023 11:42:18 09/18/19 24 09/18/2023 CBC/C OMPLE TE BLD COUNT W/DIF F hemoglobin 10.4 g/dL 12.0-1 5.6 low Not Available [facility] (Lab) [address] [place], [address], 09/18/2023 11:42:18 09/18/19 24 09/18/2023 CBC/C OMPLE TE BLD COUNT W/DIF F hematocrit 33.3 % 35.7-4 5.7 low Not Available [facility] (Lab) [address] [place], [address], 09/18/2023 11:42:18 09/18/19 24 09/18/2023 CBC/C OMPLE TE BLD COUNT W/DIF F mean red cell volume 89.8 fL 82.0-9 9.0 Not Available [facility] (Lab) [address] [place], [address], 09/18/2023 11:42:18 09/18/19 24 09/18/2023 CBC/C OMPLE TE BLD COUNT W/DIF F mean red cell hemoglobin 28.0 pg 27.0-3 3.0 Not Available [facility] (Lab) [address] [place], [address], 09/18/2023 11:42:18 09/18/19 24 09/18/2023 CBC/C OMPLE TE BLD COUNT W/DIF F mean RBC HGB concentratio n 31.2 g/dL 31.0-3 6.0 Not Available [facility] (Lab) [address] [place], [address], 09/18/2023 11:42:18 09/18/19 24 09/18/2023 CBC/C OMPLE TE BLD COUNT W/DIF F red cell distribution width 13.9 % 11.8-1 5.5 Not Available [facility] (Lab) [address] [place], [address], 09/18/2023 11:42:18 09/18/19 24 09/18/2023 CBC/C OMPLE TE BLD COUNT W/DIF F platelets 322 x10'3 /uL 150-40 0 Not Available [facility] (Lab) [address] [place], [address], 09/18/2023 11:42:18 09/18/19 24 09/18/2023 CBC/C OMPLE TE BLD COUNT W/DIF F mean platelet volume 10.5 fL 9.0-12 .4 Not Available [facility] (Lab) [address] [place], [address], 09/18/2023 11:42:18 09/18/19 24 09/18/2023 CBC/C OMPLE TE BLD COUNT W/DIF F neutrophils 54.2 % 39.0-7 2.0 Not Available [facility] (Lab) [address] [place], [address], 09/18/2023 11:42:18 09/18/19 24 09/18/2023 CBC/C OMPLE TE BLD COUNT W/DIF F lymphocytes 38.0 % 16.0-4 7.0 Not Available [facility] (Lab) [address] [place], [address], 09/18/2023 11:42:18 09/18/19 24 09/18/2023 CBC/C OMPLE TE BLD COUNT W/DIF F monocytes 5.6 % 5.0-12 .0 Not Available [facility] (Lab) [address] [place], [address], 09/18/2023 11:42:18 09/18/19 24 09/18/2023 CBC/C OMPLE TE BLD COUNT W/DIF F eosinophils 1.2 % 1.0-7. 0 Not Available [facility] (Lab) [address] [place], [address], 09/18/2023 11:42:18 09/18/19 24 09/18/2023 CBC/C OMPLE TE BLD COUNT W/DIF F basophils 0.8 % 0.0-2. 0 Not Available [facility] (Lab) [address] [place], [address], 09/18/2023 11:42:18 09/18/19 24 09/18/2023 CBC/C OMPLE TE BLD COUNT W/DIF F immature granulocytes 0.2 % 0.00-0 .50 Not Available [facility] (Lab) [address] [place], [address], 09/18/2023 11:42:18 09/18/19 24 09/18/2023 CBC/C OMPLE TE BLD COUNT W/DIF F neutrophils, absolute count 2.70 x10'3 /uL 1.5-8. 0 Not Available [facility] (Lab) [address] [place], [address], 09/18/2023 11:42:18 09/18/19 24 09/18/2023 CBC/C OMPLE TE BLD COUNT W/DIF F lymphocytes, absolute count 1.89 x10'3 /uL 1.07-3 .43 Not Available [facility] (Lab) [address] [place], [address], 09/18/2023 11:42:18 09/18/19 24 09/18/2023 CBC/C OMPLE TE BLD COUNT W/DIF F monocytes, absolute count 0.28 x10'3 /uL 0.29-0 .99 low Not Available [facility] (Lab) [address] [place], [address], 09/18/2023 11:42:18 09/18/19 24 09/18/2023 CBC/C OMPLE TE BLD COUNT W/DIF F eosinophils, absolute count 0.06 x10'3 /uL 0.02-0 .53 Not Available [facility] (Lab) [address] [place], [address], 09/18/2023 11:42:18 09/18/19 24 09/18/2023 CBC/C OMPLE TE BLD COUNT W/DIF F basophils, absolute count 0.04 x10'3 /uL 0.01-0 .08 Not Available [facility] (Lab) [address] [place], [address], 09/18/2023 11:42:18 09/18/19 24 09/18/2023 CBC/C OMPLE TE BLD COUNT W/DIF F immature granulocytes ,absolute 0.01 x10'3 /uL 0.00-0 .05 Not Available [facility] (Lab) [address] [place], [address], 09/18/2023 11:42:18 09/18/19 24 09/18/2023 CBC/C OMPLE TE BLD COUNT W/DIF F nucleated red blood cells 0.0 % -0 Not Available [facility] (Lab) [address] [place], [address], 09/18/2023 11:42:18 09/18/19 24 09/18/2023 CBC/C OMPLE TE BLD COUNT W/DIF F NRBC# 0.00 x10'3 /uL Not Available [facility] (Lab) [address] [place], [address], 09/18/2023 11:42:18 09/18/19 24 09/18/2023 LIPID PANEL cholesterol 160 mg/dL 140-19 9 NIH ADDISON NSUS RECOM MENDA TION FOR CASSIDY STERO L: ADULT CHILD LOW RISK: <200 <170 BORDE RLINE : <200- 239 ----- HIGH RISK: >240 >200 Not Available [facility] (Lab) [address] [place], [address], 09/18/2023 11:54:40 09/18/19 24 09/18/2023 LIPID PANEL triglyceride s 42 mg/dL 0-150 NIH ADDISON NSUS REPOR T RECOM MENDA TION FOR TRIGL YCERI JOSSELIN: ADULT CHILD LOW RISK: <150 ----- BODER LINE: 150-1 99 ----- HIGH RISK: >200 ----- Not Available [facility] (Lab) [address] [place], [address], 09/18/2023 11:54:40 09/18/19 24 09/18/2023 LIPID PANEL HDL cholesterol 88 mg/dL 40- Not Available [facility] (Lab) [address] [place], [address], 09/18/2023 11:54:40 09/18/19 24 09/18/2023 LIPID PANEL [...] WILL NOT BE REPOR [place]. Not Available [facility] (Lab) [address] [place], [address], 09/18/2023 11:54:40 09/18/19 24 09/18/2023 COMPR EHENS RAVI METAB OLIC PANEL sodium 140 mmol/ L 137-14 5 Not Available [facility] (Lab) [address] [place], [address], 09/18/2023 11:54:44 09/18/19 24 09/18/2023 COMPR EHENS RAVI METAB OLIC PANEL potassium 4.0 mmol/ L 3.5-5. 1 Not Available [facility] (Lab) [address] [place], [address], 09/18/2023 11:54:44 09/18/19 24 09/18/2023 COMPR EHENS RAVI METAB OLIC PANEL chloride 104 mmol/ L 98-107 Not Available [facility] (Lab) [address] [place], [address], 09/18/2023 11:54:44 09/18/19 24 09/18/2023 COMPR EHENS RAVI METAB OLIC PANEL carbon dioxide 32 mmol/ L 22-30 high Not Available [facility] (Lab) [address] [place], [address], 09/18/2023 11:54:44 09/18/19 24 09/18/2023 COMPR EHENS RAVI METAB OLIC PANEL anion gap 8.0 mmol/ L 14-22 low Not Available [facility] (Lab) [address] [place], [address], 09/18/2023 11:54:44 09/18/19 24 09/18/2023 COMPR EHENS RAVI METAB OLIC PANEL glucose 118 mg/dL 70-99 high Not Available [facility] (Lab) [address] [place], [address], 09/18/2023 11:54:44 09/18/19 24 09/18/2023 COMPR EHENS RAVI METAB OLIC PANEL BUN 14 mg/dL 8-19 Not Available [facility] (Lab) [address] [place], [address], 09/18/2023 11:54:44 09/18/19 24 09/18/2023 COMPR EHENS RAVI METAB OLIC PANEL creatinine 0.91 mg/dL 0.66-1 .25 Not Available [facility] (Lab) [address] [place], [address], 09/18/2023 11:54:44 09/18/19 24 09/18/2023 COMPR EHENS RAVI METAB OLIC PANEL GFR >60 Refer ence Range : [place] ge GFR Healt hy Adult : >60 [...] calcu lator is avail able on the [facility] websi te: https :[email or web address] [email or web address] [email or web address]/pr ofess ional s/kdo qi/gf r_cal culat or Not Available [facility] (Lab) [address] [place], [address], 09/18/2023 11:54:44 09/18/19 24 09/18/2023 COMPR EHENS RAVI METAB OLIC PANEL alkaline phosphatase 86 U/L 38-126 Not Available [facility] (Lab) [address] [place], [address], 09/18/2023 11:54:44 09/18/19 24 09/18/2023 COMPR EHENS RAVI METAB OLIC PANEL alanine aminotransfe rase 34 U/L 0-35 Not Available [facility] (Lab) [address] [place], [address], 09/18/2023 11:54:44 09/18/19 24 09/18/2023 COMPR EHENS RAVI METAB OLIC PANEL aspartate aminotransfe rase 44 U/L 15-37 high Not Available [facility] (Lab) [address] [place], [address], 09/18/2023 11:54:44 09/18/19 24 09/18/2023 COMPR EHENS RAVI METAB OLIC PANEL bilirubin, total 0.50 mg/dL 0.20-1 .30 Not Available [facility] (Lab) [address] [place], [address], 09/18/2023 11:54:44 09/18/19 24 09/18/2023 COMPR EHENS RAVI METAB OLIC PANEL calcium 9.1 mg/dL 8.4-10 .2 Not Available [facility] (Lab) [address] [place], [address], 09/18/2023 11:54:44 09/18/19 24 09/18/2023 COMPR EHENS RAVI METAB OLIC PANEL total protein 6.8 g/dL 6.3-8. 2 Not Available [facility] (Lab) [address] [place], [address], 09/18/2023 11:54:44 09/18/19 24 09/18/2023 COMPR EHENS RAVI METAB OLIC PANEL albumin 3.9 g/dL 3.0-4. 4 Not Available [facility] (Lab) [address] [place], [address], 09/18/2023 11:54:44 09/18/19 24 09/18/2023 COMPR EHENS RAVI METAB OLIC PANEL globulin 2.9 g/dL 2.6-4. 2 Not Available [facility] (Lab) [address] [place], [address], 09/18/2023 11:54:44 09/18/19 24 09/18/2023 COMPR EHENS RAVI METAB OLIC PANEL A/G ratio 1.3 ratio 1.0-2. 0 Not Available [facility] (Lab) [address] [place], [address], 09/18/2023 11:54:44 09/18/19 24 09/18/2023 MICRO ALBUM IN RANDO M URINE microalbumin , urine 14.3 mg/L 0.0-16 .6 Not Available [facility] (Lab) [address] [place], [address], 09/18/2023 12:02:17 09/18/19 24 09/18/2023 T4 FREE free T4 1.07 NG/dL 0.78-2 .19 Not Available [facility] (Lab) [address] [place], [address], 09/18/2023 12:11:54 06/28/20 24 09/18/2023 TSH thyroid-stim ulating hormone 3.130 uIU/m L 0.465- 4.680 Not Available [facility] (Lab) [address] [place], [address], 09/18/2023 12:25:04 09/18/19 24 09/18/2023 HEPAT ITIS ACUTE PANEL hepatitis A IgM antibody NON-RE ACTIVE non-re active For sampl es repor [place] as Borde rline React ravi for HAV IgM, it is recom nicho d a new speci men be obtai mary in 2 weeks and retes [place]. Not Available [facility] (Lab) [address] [place], [address], 09/18/2023 12:45:54 09/18/19 24 09/18/2023 HEPAT ITIS ACUTE PANEL hepatitis A virus signal/cutof 0.05 0.00-0 .79 Not Available [facility] (Lab) [address] [place], [address], 09/18/2023 12:45:54 09/18/19 24 09/18/2023 HEPAT ITIS ACUTE PANEL hepatitis B core IgM antibody NON-RE ACTIVE non-re active Not Available [facility] (Lab) [address] [place], [address], 09/18/2023 12:45:54 09/18/19 24 09/18/2023 HEPAT ITIS ACUTE PANEL HBV core IgM signal/cutof f 0.04 0.00-1 .10 Not Available [facility] (Lab) [address] [place], [address], 09/18/2023 12:45:54 09/18/19 24 09/18/2023 HEPAT ITIS ACUTE PANEL hepatitis B surface antigen NON-RE ACTIVE non-re active All speci mens react ravi for Hepat itis B Surfa ce Antig en will refle x to refer [facility] lab confi rmato ry testi ng. Not Available [facility] (Lab) [address] [place], [address], 09/18/2023 12:45:54 09/18/19 24 09/18/2023 HEPAT ITIS ACUTE PANEL HBV surf.antigen signal/cutof f 0.07 0.00-0 .99 Not Available [facility] (Lab) [address] [place], [address], 09/18/2023 12:45:54 09/18/19 24 09/18/2023 HEPAT ITIS ACUTE PANEL hepatitis C antibody NON-RE ACTIVE non-re active All speci mens react ravi for Hepat itis C Virus antib sandra will refle x to PCR confi rmato ry testi ng. Pleas e allow 48-72 hours for resul ts. Not Available [facility] (Lab) [address] [place], [address], 09/18/2023 12:45:54 09/18/19 24 09/18/2023 HEPAT ITIS ACUTE PANEL hepatitis C virus signal/cutof 0.01 0.00-0 .99 Not Available [facility] (Lab) [address] [place], [address], 09/18/2023 12:45:54 09/18/19 24 09/18/2023 HEMOG LOBIN A1C HA1C 7.1 % 4.0-6. 0 high Diabe donna Scree aure Crite carmina: <5.7% Consi stent with absen ce of diabe donna 5.7-6 .4% Consi stent with incre ased risk for diabe donna (pred iabet es) >OR=6 .5% Consi stent with diabe donna REFER ENCE: Diabe donna Care 2016, 39(Navarrete ppl.1 ):s13 -s22 Not Available [facility] (Lab) [address] [place], [address], 09/18/2023 12:45:07 09/18/19 24 09/18/2023 VITAM IN D 25-HY DROXY vd25oh 35.2 NG/mL 30-100 Vitam in D Statu s: Defic ient: <20 ng/mL Insuf ficie nt: 20-29 ng/mL Suffi cient : 30-10 0 ng/mL Not Available [facility] (Lab) [address] [place], [address], 09/18/2023 17:34:39 01/14/2001/14/2024 CBC/C OMPLE TE BLD COUNT W/DIF F white blood cells 4.9 x10'3 /uL 4.2-10 .8 Not Available [facility] (Lab) [address] [place], [address], 01/14/2024 12:27:28 01/14/2001/14/2024 CBC/C OMPLE TE BLD COUNT W/DIF F red blood cells 3.73 x10'6 /uL 3.80-5 .20 low Not Available [facility] (Lab) [address] [place], [address], 01/14/2024 12:27:28 01/14/2001/14/2024 CBC/C OMPLE TE BLD COUNT W/DIF F hemoglobin 10.6 g/dL 12.0-1 5.6 low Not Available [facility] (Lab) [address] [place], [address], 01/14/2024 12:27:28 01/14/2001/14/2024 CBC/C OMPLE TE BLD COUNT W/DIF F hematocrit 33.7 % 35.7-4 5.7 low Not Available [facility] (Lab) [address] [place], [address], 01/14/2024 12:27:28 01/14/2001/14/2024 CBC/C OMPLE TE BLD COUNT W/DIF F mean red cell volume 90.3 fL 82.0-9 9.0 Not Available [facility] (Lab) [address] [place], [address], 01/14/2024 12:27:28 01/14/2001/14/2024 CBC/C OMPLE TE BLD COUNT W/DIF F mean red cell hemoglobin 28.4 pg 27.0-3 3.0 Not Available [facility] (Lab) [address] [place], [address], 01/14/2024 12:27:28 01/14/2001/14/2024 CBC/C OMPLE TE BLD COUNT W/DIF F mean RBC HGB concentratio n 31.5 g/dL 31.0-3 6.0 Not Available [facility] (Lab) [address] [place], [address], 01/14/2024 12:27:28 01/14/2001/14/2024 CBC/C OMPLE TE BLD COUNT W/DIF F red cell distribution width 13.8 % 11.8-1 5.5 Not Available [facility] (Lab) [address] [place], [address], 01/14/2024 12:27:28 01/14/2001/14/2024 CBC/C OMPLE TE BLD COUNT W/DIF F platelets 326 x10'3 /uL 150-40 0 Not Available [facility] (Lab) [address] [place], [address], 01/14/2024 12:27:28 01/14/2001/14/2024 CBC/C OMPLE TE BLD COUNT W/DIF F mean platelet volume 10.5 fL 9.0-12 .4 Not Available [facility] (Lab) [address] [place], [address], 01/14/2024 12:27:28 01/14/2001/14/2024 CBC/C OMPLE TE BLD COUNT W/DIF F neutrophils 58.0 % 39.0-7 2.0 Not Available [facility] (Lab) [address] [place], [address], 01/14/2024 12:27:28 01/14/2001/14/2024 CBC/C OMPLE TE BLD COUNT W/DIF F lymphocytes 34.1 % 16.0-4 7.0 Not Available [facility] (Lab) [address] [place], [address], 01/14/2024 12:27:28 01/14/2001/14/2024 CBC/C OMPLE TE BLD COUNT W/DIF F monocytes 6.1 % 5.0-12 .0 Not Available [facility] (Lab) [address] [place], [address], 01/14/2024 12:27:28 01/14/2001/14/2024 CBC/C OMPLE TE BLD COUNT W/DIF F eosinophils 0.8 % 1.0-7. 0 low Not Available [facility] (Lab) [address] [place], [address], 01/14/2024 12:27:28 01/14/2001/14/2024 CBC/C OMPLE TE BLD COUNT W/DIF F basophils 0.8 % 0.0-2. 0 Not Available [facility] (Lab) [address] [place], [address], 01/14/2024 12:27:28 01/14/2001/14/2024 CBC/C OMPLE TE BLD COUNT W/DIF F immature granulocytes 0.2 % 0.00-0 .50 Not Available [facility] (Lab) [address] [place], [address], 01/14/2024 12:27:28 01/14/2001/14/2024 CBC/C OMPLE TE BLD COUNT W/DIF F neutrophils, absolute count 2.84 x10'3 /uL 1.5-8. 0 Not Available [facility] (Lab) [address] [place], [address], 01/14/2024 12:27:28 01/14/2001/14/2024 CBC/C OMPLE TE BLD COUNT W/DIF F lymphocytes, absolute count 1.67 x10'3 /uL 1.07-3 .43 Not Available [facility] (Lab) [address] [place], [address], 01/14/2024 12:27:28 01/14/2001/14/2024 CBC/C OMPLE TE BLD COUNT W/DIF F monocytes, absolute count 0.30 x10'3 /uL 0.29-0 .99 Not Available [facility] (Lab) [address] [place], [address], 01/14/2024 12:27:28 01/14/2001/14/2024 CBC/C OMPLE TE BLD COUNT W/DIF F eosinophils, absolute count 0.04 x10'3 /uL 0.02-0 .53 Not Available [facility] (Lab) [address] [place], [address], 01/14/2024 12:27:28 01/14/2001/14/2024 CBC/C OMPLE TE BLD COUNT W/DIF F basophils, absolute count 0.04 x10'3 /uL 0.01-0 .08 Not Available [facility] (Lab) [address] [place], [address], 01/14/2024 12:27:28 01/14/2001/14/2024 CBC/C OMPLE TE BLD COUNT W/DIF F immature granulocytes ,absolute 0.01 x10'3 /uL 0.00-0 .05 Not Available [facility] (Lab) [address] [place], [address], 01/14/2024 12:27:28 01/14/2001/14/2024 CBC/C OMPLE TE BLD COUNT W/DIF F nucleated red blood cells 0.0 % -0 Not Available [facility] (Lab) [address] [place], [address], 01/14/2024 12:27:28 01/14/20 24 01/14/2024 CBC/C OMPLE TE BLD COUNT W/DIF F NRBC# 0.00 x10'3 /uL Not Available [facility] (Lab) [address] [place], [address], 01/14/2024 12:27:28 01/14/2001/14/2024 VITAM IN D 25-HY DROXY vd25oh 34.4 NG/mL 30-100 Vitam in D Statu s: Defic ient: <20 ng/mL Insuf ficie nt: 20-29 ng/mL Suffi cient : 30-10 0 ng/mL Not Available [facility] (Lab) [address] [place], [address], 01/14/2024 12:59:04 01/14/2001/14/2024 LIPID PANEL cholesterol 237 mg/dL 140-19 9 high NIH ADDISNO NSUS RECOM MENDA TION FOR CASSIDY STERO L: ADULT CHILD LOW RISK: <200 <170 BORDE RLINE : <200- 239 ----- HIGH RISK: >240 >200 Not Available [facility] (Lab) [address] [place], [address], 01/14/2024 13:01:11 01/14/2001/14/2024 LIPID PANEL triglyceride s 58 mg/dL 0-150 NIH ADDISON NSUS REPOR T RECOM MENDA TION FOR TRIGL YCERI JOSSELIN: ADULT CHILD LOW RISK: <150 ----- BODER LINE: 150-1 99 ----- HIGH RISK: >200 ----- Not Available [facility] (Lab) [address] [place], [address], 01/14/2024 13:01:11 01/14/2001/14/2024 LIPID PANEL HDL cholesterol 122 mg/dL 40- Not Available [facility] (Lab) [address] [place], [address], 01/14/2024 13:01:11 01/14/2001/14/2024 LIPID PANEL LDL cholesterol, calculated 103 mg/dL [...] WILL NOT BE REPOR [place]. Not Available [facility] (Lab) [address] [place], [address], 01/14/2024 13:01:11 01/14/20 24 01/14/2024 COMP MET PANEL /LIVE R sodium 137 mmol/ L 137-14 5 Not Available [facility] (Lab) [address] [place], [address], 01/14/2024 13:01:16 01/14/20 24 01/14/2024 COMP MET PANEL /LIVE R potassium 4.2 mmol/ L 3.5-5. 1 Not Available [facility] (Lab) [address] [place], [address], 01/14/2024 13:01:16 01/14/2001/14/2024 COMP MET PANEL /LIVE R chloride 102 mmol/ L 98-107 Not Available [facility] (Lab) [address] [place], [address], 01/14/2024 13:01:16 01/14/20 24 01/14/2024 COMP MET PANEL /LIVE R carbon dioxide 28 mmol/ L 22-30 Not Available [facility] (Lab) [address] [place], [address], 01/14/2024 13:01:16 01/14/2001/14/2024 COMP MET PANEL /LIVE R anion gap 11.2 mmol/ L 14-22 low Not Available [facility] (Lab) [address] [place], [address], 01/14/2024 13:01:16 01/14/2001/14/2024 COMP MET PANEL /LIVE R glucose 106 mg/dL 70-99 high Not Available [facility] (Lab) [address] [place], [address], 01/14/2024 13:01:16 01/14/2001/14/2024 COMP MET PANEL /LIVE R BUN 15 mg/dL 8-19 Not Available [facility] (Lab) [address] [place], [address], 01/14/2024 13:01:16 01/14/2001/14/2024 COMP MET PANEL /LIVE R creatinine 0.95 mg/dL 0.66-1 .25 Not Available [facility] (Lab) [address] [place], [address], 01/14/2024 13:01:16 01/14/2001/14/2024 COMP MET PANEL /LIVE R GFR >60 Refer ence Range : [place] ge GFR Healt hy Adult : >60 [...] calcu lator is avail able on the [facility] websi te: https ://ww w.kid henry.o rg/pr ofess ional s/kdo qi/gf r_cal culat or Not Available [facility] (Lab) [address] [place], [address], 01/14/2024 13:01:16 01/14/2001/14/2024 COMP MET PANEL /LIVE R alkaline phosphatase 81 U/L 38-126 Not Available [facility] (Lab) [address] [place], [address], 01/14/2024 13:01:16 01/14/2001/14/2024 COMP MET PANEL /LIVE R alanine aminotransfe rase 31 U/L 0-35 Not Available [facility] (Lab) [address] [place], [address], 01/14/2024 13:01:16 01/14/2001/14/2024 COMP MET PANEL /LIVE R aspartate aminotransfe rase 39 U/L 15-37 high Not Available [facility] (Lab) [address] [place], [address], 01/14/2024 13:01:16 01/14/2001/14/2024 COMP MET PANEL /LIVE R bilirubin, total 0.60 mg/dL 0.20-1 .30 Not Available [facility] (Lab) [address] [place], [address], 01/14/2024 13:01:16 01/14/2001/14/2024 COMP MET PANEL /LIVE R bilirubin, conjugated (direct) 0.00 mg/dL 0.00-0 .30 Not Available [facility] (Lab) [address] [place], [address], 01/14/2024 13:01:16 01/14/2001/14/2024 COMP MET PANEL /LIVE R biliurubin,u ncong. (indirect) 0.20 mg/dL 0.00-1 .1 Not Available [facility] (Lab) [address] [place], [address], 01/14/2024 13:01:16 01/14/2001/14/2024 COMP MET PANEL /LIVE R calcium 10.1 mg/dL 8.4-10 .2 Not Available [facility] (Lab) [address] [place], [address], 01/14/2024 13:01:16 01/14/2001/14/2024 COMP MET PANEL /LIVE R total protein 6.9 g/dL 6.3-8. 2 Not Available [facility] (Lab) [address] [place], [address], 01/14/2024 13:01:16 01/14/2001/14/2024 COMP MET PANEL /LIVE R albumin 4.2 g/dL 3.0-4. 4 Not Available [facility] (Lab) [address] [place], [address], 01/14/2024 13:01:16 01/14/2001/14/2024 COMP MET PANEL /LIVE R globulin 2.7 g/dL 2.6-4. 2 Not Available [facility] (Lab) [address] [place], [address], 01/14/2024 13:01:16 01/14/2001/14/2024 COMP MET PANEL /LIVE R A/G ratio 1.6 ratio 1.0-2. 0 Not Available [facility] (Lab) [address] [place], [address], 01/14/2024 13:01:16 01/14/2001/14/2024 T4 FREE free T4 0.86 NG/dL 0.78-2 .19 Not Available [facility] (Lab) [address] [place], [address], 01/14/2024 13:05:35 01/14/2001/14/2024 TSH thyroid-stim ulating hormone 2.170 uIU/m L 0.465- 4.680 Not Available [facility] (Lab) [address] [place], [address], 01/14/2024 13:07:27 01/14/2001/14/2024 MICRO ALBUM IN RANDO M URINE microalbumin , urine 12.9 mg/L 0.0-16 .6 Not Available [facility] (Lab) [address] [place], [address], 01/14/2024 13:13:57 01/14/2001/14/2024 HEPAT ITIS ACUTE PANEL hepatitis A IgM antibody NON-RE ACTIVE non-re active For sampl es repor austin as Mehnaz marianoine React ravi for HAV IgM, it is recom nicho d a new speci men be obtai mary in 2 weeks and retes austin. Not Available [facility] (Lab) [address] [place], [address], 01/14/2024 13:35:11 01/14/2001/14/2024 HEPAT ITIS ACUTE PANEL hepatitis A virus signal/cutof 0.04 0.00-0 .79 Not Available [facility] (Lab) [address] [place], [address], 01/14/2024 13:35:11 01/14/2001/14/2024 HEPAT ITIS ACUTE PANEL hepatitis B core IgM antibody NON-RE ACTIVE non-re active Not Available [facility] (Lab) [address] [place], [address], 01/14/2024 13:35:11 01/14/20 24 01/14/2024 HEPAT ITIS ACUTE PANEL HBV core IgM signal/cutof f 0.05 0.00-1 .10 Not Available [facility] (Lab) [address] [place], [address], 01/14/2024 13:35:11 01/14/2001/14/2024 HEPAT ITIS ACUTE PANEL hepatitis B surface antigen NON-RE ACTIVE non-re active All speci mens react ravi for Hepat itis B Surfa ce Antig en will refle x to refer ral lab confi rmato ry testi ng. Not Available [facility] (Lab) [address] [place], [address], 01/14/2024 13:35:11 01/14/2001/14/2024 HEPAT ITIS ACUTE PANEL HBV surf.antigen signal/cutof f 0.09 0.00-0 .99 Not Available [facility] (Lab) [address] [place], [address], 01/14/2024 13:35:11 01/14/2001/14/2024 HEPAT ITIS ACUTE PANEL hepatitis C antibody NON-RE ACTIVE non-re active All speci mens react ravi for Hepat itis C Virus antib sandra will refle x to PCR confi rmato ry testi ng. Pleas e allow 48-72 hours for resul ts. Not Available [facility] (Lab) [address] [place], [address], 01/14/2024 13:35:11 01/14/20 24 01/14/2024 HEPAT ITIS ACUTE PANEL hepatitis C virus signal/cutof 0.02 0.00-0 .99 Not Available [facility] (Lab) [address] [place], [address], 01/14/2024 13:35:11 01/14/2001/14/2024 HEMOG LOBIN A1C HA1C 7.2 % 4.0-6. 0 high Diabe donna Daniele aure Crite carmina: <5.7% Consi stent with absen ce of diabe donna 5.7-6 .4% Consi stent with incre ased risk for diabe donna (pred iabet es) >OR=6 .5% Consi stent with diabe donna REFER ENCE: Diabe donna Care 2016, 39(Navarrete ppl.1 ):s13 -s22 Not Available [facility] (Lab) [address] [place], [address], 01/14/2024 14:38:11 10/02/19 24 10/01/2023 imagi ng/di agnos tic resul t No observ ation record ed. [facility] [address] [place], [address], 10/02/2023 00:54:17 02/22/20 24 02/22/2024 imagi ng/di agnos tic resul t No observ ation record ed. [facility] [address] , [place], [address], 02/22/2024 16:38:45 08/13/19 25 08/10/2024 imagi ng/di agnos tic resul t No observ ation record ed. G[facility] Not Available 2024 11:37:24 08/16/19 25 08/15/2024 imagi ng/di agnos tic resul t No observ ation record ed. [facility] [address] [place], [address], 08/15/2024 17:26:56 Result Notes None recorded. Problems Name Problem SNOMED Code Status Onset Date Resolution Date Notes Provider Name and Address Organization Details Recorded Time Tibialis posterior tendinitis 150656470 Active 2021 Not Available [facility] 3 01:26:51 Proteinuri a 39526854 Active 2021 Not Available [facility] 3 01:26:51 Type 2 diabetes mellitus without complicati on 383170000 Active 2021 Not Available [facility] 3 01:26:52 Pain in left foot 3948460446907 07 Active 2021 Not Available [facility] 3 01:26:52 Vitamin D deficiency 68196630 Active 2021 Not Available [facility] 3 01:26:52 Uncontroll ed type 2 diabetes mellitus 287016756 Active 2021 Not Available [facility] 3 01:26:52 Hyperlipid emia 71200653 Active 2021 Not Available [facility] 3 01:26:52 Essential hypertensi on 46105405 Active 2022 Oh thomas MD [address], [place], [address] , [facility] 3 14:39:19 Schizophre octaviano 71353367 Active 2022 Oh thomas MD [address], [address], [place], [address] , [facility] 3 14:42:19 Gastroesop hageal reflux disease without esophagiti s 954894347 Active 2022 Oh thomas MD [address], [place], [address] , [facility] 3 14:42:59 Liver enzymes level above reference range 727758677 Active 2022 Cierra finnegan, [facility] 3 14:35:03 Abdominal pain 19824278 Active 2022 Naye Buchanan MD [address], [place], [address] , [facility] 3 11:35:14 Dyslipidem ia 188898154 Active 2022 Not Available [facility] 3 11:40:39 Well controlled type 2 diabetes mellitus 007287590 Active 2022 Naye Buchanan MD [address], [address], [place], [address] , [facility] 3 12:48:06 Dystrophia unguium 12913171 Active 2022 Festus Moscoso DPM [address], [address], [place], [address] , [facility] 3 17:31:51 Upper respirator y infection 31008708 Active 2022 Oh thomas MD [address], [address], [place], [address] , [facility] 3 17:24:43 Anemia 501944680 Active 2023 Rima Short MA [facility], [facility] 4 11:07:11 Insomnia 366223824 Active 2023 Oh thomas MD [address], [address], [place], [address] , [facility] 4 09:43:12 Hypothyroi dism 22159974 Active 2024 Oh thomas MD [address], [address], [place], [address] , [facility] 5 10:05:46 Hypoprotei nemia 1008149 Active 2024 Oh thomas MD [address], [address], [place], [address] , [facility] 5 10:06:41 Notes:Some problems listed i n Documents: #[id number], #[id number] could not be added to this patient's chart. Please review these documents and add these problems to the patient's chart manually as needed. Problem Notes None recorded. Procedures Surgical History Date Name Laterality Status Provider Name and Address Organization Details Recorded Time 01/14/20 Medicare Wellness CPT Code, subsequent completed Rene Zuleta LPN [place] [facility] 01/14/2024 10:24:04 01/14/20 24 Advanced Care Planning completed Rene Zuleta LPN [place] [facility] 01/14/2024 11:21:46 01/28/20 23 Nail Debridement completed Festus Moscoso DPM [address] [facility], [address], [place], [address], [facility] 01/27/2023 17:31:29 12/02/19 23 Colonoscopy completed Susanna Brizuela [facility] 12/26/2022 14:29:22 Tonsillectomy completed Not Available [facility] 05/22/2022 01:25:21 completed Not Available [facility] 0 05/22/2022 01:25:21 Gastric Bypass completed Not Available [facility] 05/22/2022 01:25:21 Cataract Surgery completed Susanna cook [facility] [employer] [facility] 02/05/2023 16:56:56 Imaging Results None recorded. Procedure Notes None recorded. Medical Equipment None Reported. Allergies Allergen ID Allergen Name Allergen Category Reaction Reaction Severity Criticality Documentation Date Start Date Code Code System Note Provider Name and Address Organization Details Recorded Time 93833 Medicinal product containin g tetracycl ine structure and acting as antibacte rial agent (product) medicatio n rash Not available Not available 05/22/2022 70179 1004 SNOMED Not Available [facility] 01:28:25 40563 aspirin medicatio n rash Not available Not available 05/22/2022 1191 RxNorm Not Available [facility] 01:28:25 Medications Name Sig Start Date Stop Date Status Note LastModified by Organization Details LastModified Time cyclobenzap rine 10 mg tablet TAKE 1 TABLET BY MOUTH EVERY DAY NEEDED active Not Available Not Available No t Available atorvastati n 40 mg tablet TAKE 1 TABLET BY MOUTH EVERY DAY 12/08 /2022 completed Not Available Not Available Not Available [...] CAPSULE BY MOUTH EVERY DAY AT BEDTIME FOR NIGHTMARE S active Not Available Not Available No t [...] completed Not Available Not Available Not Available amitriptyli ne 25 mg tablet TAKE 1 TO 2 TABLETS BY MOUTH AT BEDTIME NEEDED FOR SLEEP active Not Available Not Available No t Available prednisolon e acetate 1 % eye [...] Not Available Not Available No t Available lidocaine 5 % topical patch APPLY 1 PATCH BY TRANDERMA L ROUTE ONCE DAILY active Not Available Not Available No t [...] (2 mg/1.5 mL) subcutaneou s pen injector active Not Available Not Available Not Available [employer] Naseem 2 Sensor kit CHANGE SENSOR EVERY 14 DAYS active Not Available Not Available No t Available [employer] Naseem 2 Oxford USE DIRECTED active Not Available Not Available No t Available Ozempic 0.25 mg or 0.5 mg (2 mg/3 mL) subcutaneou s pen injector INJECT 0.5MG UNDER THE SKIN ONCE WEEKLY active Not Available Not Available No t Available Vitals Date Recorded Body height Body mass index (BMI) Body weight Body temperature Heart rate Systolic And Diastolic Provider Name and Address Organization Details Last Updated DateTime 4 157.48 cm 25.1 kg/m2 13924.1 5 g 97.3 [degF] 72 /min 132/70 mm[Hg] Susanna Brizuela Colleen [facility] 4 16:51:57 Date Recorded Body height Body mass index (BMI) Body weight Body temperature Heart rate Systolic And Diastolic Provider Name and Address Organization Details Last Updated DateTime 5 157.48 cm 20.3 kg/m2 41312.7 5 g 97.3 [degF] 72 /min 116/64 mm[Hg] Susanna Brizuela Colleen [facility] 5 09:15:00 Date Recorded Body height Body mass index (BMI) Body weight Body temperature Heart rate Oxygen saturation Oxygen saturation in Arterial blood by Pulse oximetry Systolic And Diastolic Provider Name and Address Organization Details Last Updated DateTime 5 157.48 cm 21.2 kg/m2 89085.7 1 g 97.7 [degF] 70 /min 99 % 99 % 124/68 mm[Hg] Yesi Lopez MA [facility] 5 09:56:11 Date Recorded Body height Body mass index (BMI) Body weight Body temperature Heart rate Systolic And Diastolic Provider Name and Address Organization Details Last Updated DateTime 4 157.48 cm 21.9 kg/m2 04382.0 8 g 97.2 [degF] 72 /min 100/60 mm[Hg] Susanna Brizuela Colleen [facility] 4 16:56:44 Date Recorded Body height Body mass index (BMI) Body weight Heart rate Body temperature Systolic And Diastolic Provider Name and Address Organization Details Last Updated DateTime 4 157.48 cm 20.5 kg/m2 73025.3 5 g 72 /min 97.3 [degF] 120/68 mm[Hg] Susanna Brizuela Colleen [place] [facility] 4 09:27:24 Social History Question Answer Notes LastModified by Organization Details LastModified Time Tobacco Smoking Status Never Smoker Not Available [facility] 05/22/2022 01:24:27 Do You Have An Advance Directive? No [id number] Information not available 05/22/2022 How Many Years Have You Consumed Alcohol? 30 [email or web address] Information not available 01/14/2024 Do You Wear A Helmet When Biking? No Does Not Bike Information not available 01/14/2024 Are You Blind Or Do You Have Difficulty Seeing? Yes MIGRATION.[id number] Information not available 05/22/2022 Is Blood Transfusion Acceptable In An Emergency? Yes [email or web address] Information not available 01/14/2024 What Is Your Level Of Caffeine Consumption? Heavy MIGRATION.[id number] Information not available 05/22/2022 In The 14 Days Before Symptom Onset, Have You Had Close Contact With A Laboratory-florii rmed COVID-19 While That Case Was Ill? No MIGRATION.030 [id number] Information not available 05/22/2022 In The 14 Days Before Symptom Onset, Have You Had Close Contact With A Person Who Is Under Investigation For COVID-19 While That Person Was Ill? No MIGRATION.030 [id number] Information not available 05/22/2022 Are You Deaf Or Do You Have Serious Difficulty Hearing? No MIGRATION.030 938326 Information not available 05/22/2022 What Type Of Diet Are You Following? REGULAR MIGRATION.300 103046 Information not available 05/22/2022 What Is The Highest Grade Or Level Of School You Have Completed Or The Highest Degree You Have Received? [id number] MIGRATION.[id number] Information not available 05/22/2022 How Many Days Of Moderate To Strenuous Exercise, Like A Brisk Walk, Did You Do In The Last 7 Days? 5 Information not available 01/14/2024 On Those Days That You Engage In Moderate To Strenuous Exercise, How Many Minutes, On Average, Do You Exercise? 59 Works As [employer] Exp[employer] Information not available 01/14/2024 Have There Been Any Changes To Your Family Or Social Situation? No MIGRATION.030 021060 Information not available 05/22/2022 What Is The Fluoride Status Of Your Home? Unknown MIGRATION.300 [id number] Information not available 05/22/2022 Are There Any Guns Present In Your Home? No MIGRATION.030 912127 Information not available 05/22/2022 Do You Use Insect Repellent Routinely? No MIGRATION.030 980344 Information not available 05/22/2022 Where Do You Live? SingleLevelHouse With Basement MIGRATION.300 725024 Information not available 05/22/2022 Presence Of Domestic Violence No [email or web address] Information not available 01/14/2024 Guns Present In The Home? No [email or web address] Information not available 01/14/2024 Are You Able To Care For Yourself? Yes [email or web address] Information not available 01/14/2024 Are You Blind Or Do Yo Have Difficulty Seeing? No [email or web address] Information not available 01/14/2024 General Stress Level? Moderate [email or web address] Information not available 01/14/2024 Live Alone Of With Others? With Others [email or web address] Information not available 01/14/2024 Do You Have A Medical Power Of Radiation / Chemistry Technician? No MIGRATION.0301 [id number] Information not available 05/22/2022 What Was The Date Of Your Most Recent Tobacco Screening? 08/18/2024 [email or web address] Information not available 08/18/2024 How Many Children Do You Have? 3 [email or web address] Information not available 01/14/2024 Have You Ever Been Counseled For Unhealthy Alcohol Use? No Information not available 01/14/2024 Do You Have Any Pets? Yes Dog [email or web address] Information not available 01/14/2024 What Is Your Relationship Status? MIGRATION.0301 [id number] Information not available 05/22/2022 Do You Use Your Seat Belt Or Car Seat Routinely? Yes MIGRATION.0301 796063 Information not available 05/22/2022 Are You Sexually Active? No [email or web address] Information not available 01/14/2024 Do You Have Smoke And Carbon Monoxide Detectors In Your Home? Yes MIGRATION.0301 685116 Information not available 05/22/2022 Are You Passively Exposed To Smoke? Yes MIGRATION.0301 [id number] Information not available 05/22/2022 Are There Any Smokers In Your House? Yes MIGRATION.0301 356855 Information not available 05/22/2022 What Types Of Sporting Activities Do You Participate In? None Information not available 01/14/2024 Do You Use Sunscreen Routinely? No MIGRATION.0301 [id number] Information not available 05/22/2022 Has Tobacco Cessation Counseling Been Provided? No N/A Information not available 06/26/2022 Have You Recently Traveled Abroad? No MIGRATION.0301 [id number] Information not available 05/22/2022 Do You Have Difficulty Walking Or Climbing Stairs? No MIGRATION.0301 878197 Information not available 05/22/2022 Do You Have Any Dietary Restrictions? No MIGRATION.0301 189696 Information not available 05/22/2022 Sex: Female Functional Status Question Answer Note LastModified by Organizat ion Details LastModified Time Do you use any illicit or recreational drugs? No MIGRATION.[id number] 026 Information not available 05/22/2022 Do you or have you ever used any other forms of tobacco or nicotine? No MIGRATION.5607874 026 Information not available 05/22/2022 What is your level of alcohol consumption? Occasional MIGRATION.4247849 026 Information not available 05/22/2022 Are you currently employed? Yes Information not available 06/26/2022 Do you have transportation difficulties? No MIGRATION.9096495 026 Information not available 05/22/2022 Are you able to walk? YESWOREST MIGRATION.5029992 026 Information not available 05/22/2022 Do you have difficulty doing errands alone? No MIGRATION.7894135 026 Information not available 05/22/2022 Are you able to care for yourself? Yes MIGRATION.3091353 026 Information not available 05/22/2022 What is your occupation? [employer] Information not available 01/14/2024 Do you have difficulty dressing or bathing? No MIGRATION.9824059 026 Information not available 05/22/2022 What is your exercise level? Moderate MIGRATION.5730742 026 Information not available 05/22/2022 Mental Status Question Answer Note LastModified by Organizat ion Details LastModified Time Do you feel stressed (tense, restless, nervous, or anxious, or unable to sleep at night)? [id number] MIGRATION.[id number] 26 Information not available 05/22/2022 Do you have difficulty concentrating, remembering or making decisions? No Information no t available 01/14/2024 Family History Relationship Description Onset Age of this Age Resolved Age Notes LastModified by Organization Details LastModified Time Mother Diabetes mellitus MIGRATION.448 [id number] Not available 05/22/2022 01:25:25 Father Schizophreni a MIGRATION.633 [id number] Not available 05/22/2022 01:25:25 Brother Malignant neoplasm of brain MIGRATION.330 4524134 Not available 05/22/2022 01:25:25 Sister Mental disorder MIGRATION.153 [id number] Not available 05/22/2022 01:25:26 Sister Myocardial infarction MIGRATION.173 [id number] Not available 05/22/2022 01:25:26 Medical History Condition [...] PULMONARY EMBOLISM N AUTOIMMUNE DISEASE N Gynecological History Statement/Question Response How many live births 5 Date of Last Colonoscopy Date of Last Mammogram Date of LMP Most Recent Bone Density Date of Last Pap Current Control Method Menopause Obstetrics History GPAL:G 5 P 5 0 0 5 Type Value Multiple Births 0 Full Term 5 Induced 0 Spontaneous 0 Premature 0 Living 5 Ectopics 0 Total 5 Immunizations Vaccine Type Date Status Note Provider Nam e and Address Organization Details Recorded Time Pneumococcal conjugate PCV 13 2 completed Not Available [facility] 05/22/2022 01:28:20 Influenza, high-dose, trivalent, PF 4 completed Oh Esquivel MD [address] [facility], [facility] [address], [place], [address], [facility] [employer] 01/15/2024 20:21:49 Past Encounters Encounter ID Performer Location Encounter Start Date Encounter Closed Date Diagnosis/Indication Diagnosis SNOMED-CT Code Diagnosis ICD10 Code Diagnosis Note [id number] Oh thomas MD [facility] [address] [facility] [place] [address] 11/20/2021 00:00:00 11/21/2021 11:38:36 [id number] [facility] _ATHENA_M IGRATION_ DEFAULT_1 _1 , 12/20/2021 00:00:00 12/20/2021 11:43:54 [id number] Naye Buchanan MD _ATHJOSE_Wagner IGRATION_ DEFAULT_1 _1 , 12/26/2021 00:00:00 12/26/2021 11:39:18 [id number] [facility] _ATHENA_M IGRATION_ DEFAULT_1 _1 , 01/17/2022 00:00:00 01/17/2022 09:59:15 [id number] Oh thomas MD [facility] [address] [facility] [address] [place] [address] 02/27/2022 00:00:00 02/27/2022 17:20:05 [id number] Oh thomas MD [facility] [address] [address] 06/26/2022 16:40:44 06/26/2022 17:06:25 Screening - NAD 176596778 Z13.9 C-scope: Get this if not done, ordered 06/26/2022 PAP: Get thisMammog romario: Get thisDEXA: Get this Get yearly flu shotGet Tdap if not doneUTD on PCV #13 11/20/2021 Can do shingles vaccineDo COVID 19 vaccine and its boosters RTC in 3 months, do labs, ER if worseShe and her GD Gera did verbalize her understand ing of the above Essential hypertension 98365563 I10 On lisinopril 10mg dailyGet labsEK11/20/2021 : NSR, no obvious STT changes Stress test 12/16/[address] ly 12/19/2021 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 762012475 E11.9 On metformin 1000mg bidOn glimepirid e 2mg 2 tabs bidOn levemir 25 U dailyOn farxiga 10mg dailyOff victoza 0.6mg dailyOn Ozempic Get labs Dr Buchanan 12/26/2021 ; Started on ozempic Schizophrenia 03215139 F 20.9 On duloxetine 60mg dailyOn prazosin 2mg dailyOn quetiapine On hydroxyzin e Sees Dr Webber's NPNot suicidal or homicidal Gastroesop hageal reflux disease without esophagitis 408275105 K21.9 On pantoprazo le 20mg daily, take only as needed Hyperlipidemia 94973840 E78.5 On rosuvastat in 40mg dailyGet labs Screening for malignant neoplasm of colon 564103541 Z12.11 Screening mammography 24 408590 Z12.31 Screening for osteoporosis 662560267 Z13.820 Gynecologi c examination 13403539 Z01.419 Vitamin D deficiency 347 20541 E55.9 [id number] Naye Buchanan MD [facility] [address] [place] [address] 08/07/2022 10:36:31 08/07/2022 11:43:01 Uncontrolled type 2 diabetes mellitus 085105359 E11.65 a1c of 10% down from 14.4%- [...] based snack at bedtime 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 She has no hx of [...] better control and consistenc y. Abdominal pain 00688882 R10.[address] abdomen to assess for any pancreatic changes- per patient her gi pain is every morning when waking up and having more diarrhea. Screening for malignant neoplasm of colon 435978412 Z12.11 refer to gastroente rology for colonoscop y as she is overdue. Dyslipidemia 131131373 E 78.5 continue statin therapy. Spent up [...] she chooses to go outside of the [facility] to obtain labwork she was [...] in her case. She voiced understand ing. [id number] Oh thomas MD [facility] [address] [facility] [place] [address] 11/04/2022 17:02:34 11/04/2022 17:56:05 Screening - NAD 053381257 Z13.9 C-scope: Get this if not done, ordered 06/26/2022 PAP: Get thisMammog romario: Get thisDEXA: Get this Get yearly flu shotGet Tdap if not doneUTD on PCV #13 11/20/2021 Can do shingles vaccineDo COVID 19 vaccine and its boosters RTC in 3 months, do labs, ER if worseShe and her GD Gera did verbalize her understand ing of the above Essential hypertension 19065461 I10 On lisinopril 10mg dailyGet labsEK11/20/2021 : NSR, no obvious STT changes Stress test 12/16/[address] [facility] [address] ly 12/19/2021 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 [id number] E11.9 On metformin 1000mg bidOn glimepirid e 2mg 2 tabs bidOn levemir 12U at am and 18U at pmOff farxiga 10mg dailyOff victoza 0.6mg dailyOn Ozempic Get labs Dr Buchanan next apt 11/07/2022 Schizophrenia [id number] F 20.9 Not on duloxetine 60mg dailyOn prazosin 1mg dailyOn quetiapine On hydroxyzin e Sees Dr Webber's NPNot suicidal or homicidal Gastroesop hageal reflux disease without esophagitis 242777523 K21.9 On pantoprazo le 20mg daily, take only as needed Hyperlipidemia 83672818 E78.5 On rosuvastat in 40mg dailyGet labs Screening for malignant neoplasm of colon 886966825 Z12.11 Screening mammography 24 320958 Z12.31 Screening for osteoporosis 245959033 Z13.820 Gynecologi c examination 05760185 Z01.419 Vitamin D deficiency 347 66567 E55.9 Liver enzy mes level above reference range 674427680 R74.8 US liver 07/18/2022 Neg [id number] Naye Buchanan MD [facility] Endo Elsy Dennison [address] [place] [address] 11/07/2022 10:45:33 11/07/2022 11:40:58 Well controlled type 2 diabetes mellitus 523729824 E11.9 a1c of 6.8% down from 10%- [...] 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 Will drop glimepirid e down to 1 mg dose and she is aware to take with breakfast mainly and hold if premeals sugars under 110 mg/dL and take full dose if over 150 mg/dL. Dyslipidemia 898654896 E 78.5 continue statin therapy. Spent up [...] answered and refills necessary at visit today. [id number] Festus Moscoso DPM [facility] Podiatry [place] [address] [facility] [address] [place] [address] 01/27/2023 16:26:42 01/28/2023 16:30:48 Type 2 diabetes mellitus without complication 688966900 E11.9 Patient educated on neuropathy , diabetes, diabetic diet, and daily foot exams. Patient is to check feet daily for new wounds, blisters, redness to prevent infection and ulceration s to the feet. Patient will return to clinic in 3 months for diabetic foot workup. Dystrophia ungarmandoum 77467 009 L60.3 Nails 1 through 10 were debrided with sharp mechanical debridemen t without incident. Nails were debrided and greater than 50% length and thickness where needed. [id number] Oh thomas MD [facility] Internal Med [address] [facility], [address] [place] [address] 02/05/2023 16:38:10 02/05/2023 17:36:07 Screening - NAD 051250036 Z13.9 C-scope: Get this if not done, [...] understand ing of the above Essential hypertension 12411679 I10 On lisinopril 10mg dailyGet labsEK11/20/2021 : NSR, no obvious STT changes Stress test 12/16/[address] [facility] [address] ly 12/19/2021 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 090844930 E11.9 On metformin ER 500mg dailyOn glimepirid e 2mg 2 tabs bidOn levemir 12U at am and 18U at pmOff farxiga 10mg dailyOff victoza 0.6mg dailyOn Ozempic, as per Dr Buchanan 11/07/2022 , should be on 0.25mg weekly Get labs Dr Buchanan next apt 11/07/2022 Schizophrenia 21255323 F 20.9 Not on duloxetine 60mg dailyOn prazosin 1mg dailyOn quetiapine On hydroxyzin e Sees Dr Webber's NPNot suicidal or homicidal Gastroesop hageal reflux disease without esophagitis 224793607 K21.9 On pantoprazo le 20mg daily, take only as needed Hyperlipidemia 99586561 E78.5 Not on rosuvastat in 40mg dailyOn atorvastat in 80mg dailyGet labs Screening for malignant neoplasm of colon 096446310 Z12.11 Screening mammography 24 026826 Z12.31 Screening for osteoporosis 156259243 Z13.820 Gynecologi c examination 62581168 Z01.419 Vitamin D deficiency 347 72725 E55.9 Liver enzy mes level above reference range 266254612 R74.8 US liver 07/18/2022 Neg GGT: 11/05/2022 : Neg Upper resp iratory infection 46169689 J06.9 C/o cough, clear sputum, no blood, no fevers or chills, ongoing since at least 4 weeksGet COVID 19 RT PCR, rapid strep and flu, get on Z-pack, ER if worse, she verbalized her understand ing of the above [id number] Oh thomas MD [facility] Internal Med [address] [facility], [address] [place] [address] 05/14/2023 16:41:26 05/14/2023 17:20:42 Screening - NAD 150605901 Z13.9 C-scope: Get this if not done, [...] understand ing of the above Essential hypertension 60219886 I10 On lisinopril 10mg dailyGet labsEK11/20/2021 : NSR, no obvious STT changes Stress test 12/16/[address] ly 12/19/2021 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 282927458 E11.9 On metformin ER 500mg dailyOn glimepirid e 2mg 2 tabs bidOn levemir 12U at am and 18U at pmOff farxiga 10mg dailyOff victoza 0.6mg dailyOn Ozempic 0.5mg weekly Get labs Dr Buchanan Schizophrenia 19778588 F 20.9 Not on duloxetine 60mg dailyOn prazosin 1mg dailyOn quetiapine On hydroxyzin e Sees Dr Webber's NPNot suicidal or homicidal Gastroesop hageal reflux disease without esophagitis 011848574 K21.9 On pantoprazo le 20mg daily, take only as needed Hyperlipidemia 10378075 E78.5 Not on rosuvastat in 40mg dailyOn atorvastat in 80mg dailyGet labs Screening for malignant neoplasm of colon 247356408 Z12.11 Screening mammography 24 567081 Z12.31 Screening for osteoporosis 559961207 Z13.820 Gynecologi c examination 91852508 Z01.419 Vitamin D deficiency 347 45144 E55.9 Liver enzy mes level above reference range 226021603 R74.8 US liver 07/18/2022 NegGGT: 11/05/2022 : Neg [id number] Oh thomas MD [facility] Internal Med [facility] [address] [facility], [facility] [address] [place] [address] 09/17/2023 16:41:29 09/17/2023 17:14:10 Screening - NAD 807997813 Z13.9 C-scope: 12/01/2022 : Dr Stanton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
== END 2024-09-29 16:14 | disposition home or self-care (01) ==
PROVIDERS: PCP Internal Medicine; Visit Provider Internal Medicine
DX: E03.9 Hypothyroidism, unspecified (principal)
CPT/HCPCS: 76536